=== PATIENT | male | born 1955 | race Caucasian/White ===

== ENCOUNTER → 2019-06-16 | Day surgery (SDC) | payer OTHER ==
[~2019-06-16] VITALS: Ht 182.9 cm; Wt 92.1 kg
[~2019-06-16] MED LIST: BUPIVACAINE 0.25% INJ 50ML VIAL ONE; CEPH250C PO; DOCU-94 PO; GLYCOPYRROLATE 0.2 MG/ML 1ML VIAL IV ONE; HEPARIN SODIUM (PORCINE) 5000 UNITS/ML 1ML VIAL ONE; HYDR-4833 GT; KETOROLAC TROMETH 30 MG/ML 1ML VIAL IV ONE; LIDOCAINE W/ EPINEPHRINE 1 % INJ 30ML ONE; LITH300C3 PO; METF-370 PO; MIDAZOLAM HCL 1MG/1ML-2 ML VIAL ONE; NEOSTIGMINE 1 MG/ML INJ (10mg/10ML VIAL) IV ONE; ONDANSETRON HCL 4 MG/2 ML VIAL IV PRN; PROPOFOL 10 MG/ML 20 ML IV ONE; ROCURONIUM 10MG/ML 10ML VIAL IV ONE; TRAZ150T79 PO; ceFAZolin 1GM/50ML 100 ML IV ONE; ePHEDrine SULFATE 50 MG/ML AMP IV PRN; ePHEDrine SULFATE 50 MG/ML AMP ONE; fentaNYL CITRATE 100 MCG/2 ML VL ONE; hydrALAZINE HCL 20 MG/ML VL IV PRN
[2019-06-16 14:20] VITALS: BP 153/80
== END | disposition home or self-care (01) ==
LOC: SUR 10:19
PROVIDERS: ATTEND Surgery
DX: L05.02 Pilonidal sinus with abscess (principal); E11.9 Type 2 diabetes mellitus without complications; Z79.84 Long term (current) use of oral hypoglycemic drugs; Z79.899 Other long term (current) drug therapy; Z87.891 Personal history of nicotine dependence; Z98.890 Other specified postprocedural states
CPT/HCPCS: 11771; 82962; 88305; J0690; J1644; J2001; J2250; J2704; J3010; J3490

== ENCOUNTER 2023-06-20 06:52 | Day surgery (SDC) | payer OTHER ==
[2023-06-20] VITALS (8 sets, daily range): BP systolic 122–153; BP diastolic 65–79; PULSE 54–64; RESP 13–24; O2SAT 90–99
[~2023-06-20] VITALS: Ht 182.9 cm; Wt 93.9 kg
[~2023-06-20 06:52] MED LIST changes: +ASPI325T4 PO; +BENZ1TAB6 PO; -BUPIVACAINE 0.25% INJ 50ML VIAL ONE; -CEPH250C PO; -DOCU-94 PO; +DOXY100C4 PO; +GLIP10TA9 PO; -GLYCOPYRROLATE 0.2 MG/ML 1ML VIAL IV ONE; -HEPARIN SODIUM (PORCINE) 5000 UNITS/ML 1ML VIAL ONE; -HYDR-4833 GT; +ISOS1TAB28 PO; -KETOROLAC TROMETH 30 MG/ML 1ML VIAL IV ONE; -LIDOCAINE W/ EPINEPHRINE 1 % INJ 30ML ONE; -METF-370 PO; -MIDAZOLAM HCL 1MG/1ML-2 ML VIAL ONE; -NEOSTIGMINE 1 MG/ML INJ (10mg/10ML VIAL) IV ONE; -ONDANSETRON HCL 4 MG/2 ML VIAL IV PRN; +PROP60CA34 PO; -PROPOFOL 10 MG/ML 20 ML IV ONE; -ROCURONIUM 10MG/ML 10ML VIAL IV ONE; +SITA100T7 PO; +TRAZ-227 PO; -TRAZ150T79 PO; -ceFAZolin 1GM/50ML 100 ML IV ONE; -ePHEDrine SULFATE 50 MG/ML AMP IV PRN; -ePHEDrine SULFATE 50 MG/ML AMP ONE; -fentaNYL CITRATE 100 MCG/2 ML VL ONE; -hydrALAZINE HCL 20 MG/ML VL IV PRN
[2023-06-20] MEDS ORDERED: SODIUM CHL 0.9% 50 ML ONE (09:38)
[2023-06-20] MEDS ORDERED: HEPARIN SODIUM (PORCINE) 5000 UNITS/ML 1ML VIAL ONE (09:38)
[2023-06-20] MEDS ORDERED: fentaNYL CITRATE 100 MCG/2 ML VL ONE (09:38)
[2023-06-20] MEDS ORDERED: MIDAZOLAM HCL 2MG/2ML 2ml VIAL (1mg/ml) ONE (09:38)
[2023-06-20] MEDS ORDERED: VERAPAMIL 2.5MG/ML INJ 2ML VIAL IV ONE (09:38)
[2023-06-20] MEDS ORDERED: ANGIOMAX 250 MG VIAL IV ONE (09:38)
[2023-06-20] MEDS ORDERED: IODIXANOL 320MG/ML 100ML BTL IV ONE ×3 (09:39→10:35)
[2023-06-20] MEDS ORDERED: LIDOCAINE 2%HCL (LOCAL ANESTH.) INJ 20ML MDV ONE (09:39)
[2023-06-20] MEDS ORDERED: ATROPINE SULF 1 MG/10ml SYR ONE (10:36)
[2023-06-20] MEDS ORDERED: EPINEPHrine HCL 1 MG/10 ML SYRG ONE (10:36)
[2023-06-20] MEDS ORDERED: ASPirin 325 MG TAB ONE (10:46)
[2023-06-20] MEDS ORDERED: TICAGRELOR 90 MG TAB ONE (10:46)
== END 2023-06-20 14:32 | disposition home or self-care (01) ==
LOC: CATH 06:52
PROVIDERS: ATTEND Internal Medicine
DX: I25.119 Atherosclerotic heart disease of native coronary artery with unspecified angina pectoris (principal); I10 Essential (primary) hypertension; E11.9 Type 2 diabetes mellitus without complications; F41.8 Other specified anxiety disorders; F12.90 Cannabis use, unspecified, uncomplicated; Z87.891 Personal history of nicotine dependence; Z82.49 Family history of ischemic heart disease and other diseases of the circulatory system; Z83.3 Family history of diabetes mellitus; Z72.89 Other problems related to lifestyle; Z79.82 Long term (current) use of aspirin; Z79.899 Other long term (current) drug therapy; Z98.890 Other specified postprocedural states
CPT/HCPCS: 93458; C1725; C1769; C1874; C1887; C1894; C9600; J0583; J1644; J2250; J3010; J7030; Q9967; 99152

== ENCOUNTER 2024-09-01 07:46 | Inpatient (IN) | payer OTHER ==
[~2024-09-01] VITALS: Ht 182.9 cm; Wt 90.8 kg
[~2024-09-01 07:46] MED LIST changes: -ASPI325T4 PO; +ASPI325T6 PO; +ATOR20TA50 PO
[2024-09-01] MEDS: ONDANSETRON HCL 4 MG/2 ML VIAL IV ONE (08:28)
[2024-09-01] MEDS: MORPHINE SULFATE 4 MG/ML SYR/VIAL IV ONE (08:28)
[2024-09-01] MEDS: SODIUM CHLORIDE 0.9% 1,000 ML IV ONE (08:29)
[2024-09-01 08:42] LABS: Basophils # (auto) 0.1 10 ^3/uL (0-0.2); Basophils % (auto) 0.4 % (0.0-2.0); Eosinophils # (auto) 0.1 10 ^3/uL (0-0.8); Eosinophils % (auto) 0.3 % (0.0-7.0); Hematocrit 44.8 % (41.0-53.0); Hemoglobin 15.3 g/dL (13.5-17.5); Lymphocytes # (auto) 0.8 10 ^3/uL (0.4-5.4); Lymphocytes % (auto) 4.2 % (10.0-50.0); Mean Corpuscular Hemoglobin 30.7 pg (28.0-32.0); Mean Corpuscular Hgb Conc. 34.2 g/dL (32.0-36.0); Mean Corpuscular Volume 89.7 fL (80.0-100.0); Monocytes # (auto) 0.9 10 ^3/uL (0-1.3); Monocytes % (auto) 4.4 % (0.0-12.0); Neutrophils # (auto) 17.9 10 ^3/uL (1.6-8.6); Neutrophils % (auto) 90.7 % (37.0-80.0); Platelet Count (auto) 381 10^3/uL (140-450); Red Cell Distribution Width 13.2 % (11.8-14.3); White Blood Cell 19.7 10^3/uL (4.4-10.8)
--- NOTE | 2024-09-01 08:51 | ED.PDOC ---
History of Present Illness HPI Comments 69 y/o M, with a history of CAD, DM, HLD, PTCA, and tobacco use, is BIBA for c/o right-shoulder, rib, and hip pain and right-arm numbness s/p multiple mechanical falls and injuries for the past 4x days, today. Per EMS report, patient's spouse called, endorsing on patient sustaining injuries following multiple falls he has been having for the past 4x days, with most recent taking place, this morning, while in his closet. Patient is commented by EMS to endorse on a "demon" hitting him and causing his falls. He was noted to have had a blood glucose of 236, with all remaining vitals stable and within normal limits. At time of assessment, patient is a poor historian and reports no additional information regarding the nature of his falls aside from aforementioned "demon" causing it. He denies any additional injuries, weakness, tingling sensations, fever, chills, cough, or other associated symptoms or modifiers at this time. Chief Complaint: Fall Injury Time Seen by MD: 08:05 Primary Care Provider: TYRONE Reviewed Notes: Nurses Notes, Chlorination Operator Notes, Medications, Allergies Allergies: Coded Allergies: NO KNOWN ALLERGIES (Unverified , 06/18/23) Home Meds Reported Medications Propranolol Hcl (Inderal La) 60 Mg Cap, 1 CAP PO DAILY for htn, #90 CAP 1 Refill 06/18/23 Isosorbide Mononitrate (Isosorbide Mononitrate Er) 30 Mg Tab, 30 MG PO DAILY for angina, MG 06/18/23 Benztropine Mesylate (Benztropine Mesylate) 1 Mg Tab, 1 MG PO DAILY, MG 06/18/23 Glipizide (Glipizide) 10 Mg Tab, 10 MG PO BID for diabetes, MG 06/18/23 Aspirin (Aspirin) 325 Mg Tab, 325 MG PO DAILY for cad, MG 06/18/23 Sitagliptin Phosphate (Januvia) 100 Mg Tab, 1 TAB PO DAILY for diabetes, #30 TAB 5 Refills 06/18/23 Doxycycline Hyclate (Doxycycline Hyclate) 100 Mg Cap, 100 MG PO DAILY, MG 06/18/23 Trazodone Hcl (Trazodone Hcl) 50 Mg Tab, 150 MG PO HS, MG 1/22/24 [place] Carbonate ([place] Carbonate) 300 Mg Cap, 600 MG PO HS for 30 Days, MG 06/18/23 Information Source: Patient, Emergency Med Personnel Mode of Arrival: EMS Severity: Moderate Timing: Days Duration: Since onset Prehospital treatment: 12 Lead EKG, 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, 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 Past Medical History PAST MEDICAL HISTORY: CAD, DM, High Lipids Surgical History: PTCA Surgical History (Other): stenting of the left anterior descending coronary artery, pilonidal cyst removal Family History Family History: Reviewed,noncontributory to illness Social History Smoker: Cigarettes, Less Than 1 Pack/Day Alcohol: Denies ETOH Use Drugs: Denies Drug Use Lives In: Home All Other Systems: Reviewed and Negative (Comprehensive systems review obtained and negative except for what is stated in the HPI.) Physical Exam General Appearance: No Apparent Distress, Normal HEENT: Normal ENT Inspection, Pharynx Normal, TMs Normal Neck: Full Range of Motion, Non-Tender, Normal, Normal Inspection Respiratory: Chest Non-Tender, Lungs Clear, No Accessory Muscle Use, No Respiratory Distress, Normal Breath Sounds Cardiovascular: No Edema, No JVD, No Murmur, No Gallop, Normal Peripheral Pulses, Regular Rate/Rhythm Breast Exam: Deferred Gastrointestinal: No Organomegaly, Non Tender, No Pulsatile Mass, Normal Bowel Sounds, Soft Genitalia: Deferred Pelvic: Deferred Rectal: Deferred Extremities: No calf tenderness, Normal capillary refill, Normal inspection, Normal range of motion, No pedal edema, Tender (right-shoulder ) Musculoskeletal : Apperance: Normal Neurologic: Alert, operations officer afloat II-XII nml as Tested, No Motor Deficits, Normal Affect, Normal Mood, No Sensory Deficits Cerebellar Function: Normal Reflexes: Normal Skin: Dry, Normal Color, Warm Lymphatic: No Adenopathy Was a procedure done? Was a procedure done?: Yes Sedation Sedation?: No Chest Tube Indication: Effusion (pleural ) Procedure: Sterile preparation, Chest Tube Size Anesthetic: Lidocaine Site: L 4th intercostal space Drainage: Blood, Fluid Informed consent obtained: Yes Risks/benefits/alt described: Yes Differential Dx Considerations may include: fractures, dislocation, contusions, bruising, musculoskeletal pain, among others X-Ray, Labs, Meds, VS Vital Signs Date Time Temp Pulse Resp B/P (MAP) Pulse Ox O2 Delivery O2 Flow Rate FiO2 09/01/24 14:00 97 23 149/75 (99) 96 09/01/24 12:00 97.7 174 22 114/84 (94) 94 97.7 09/01/24 10:00 110 22 118/73 (88) 93 09/01/24 09:19 107 16 120/80 09/01/24 08:42 Nasal Cannula* 2 28 09/01/24 08:31 98.4 113 22 119/65 (83) 90 98.4 09/01/24 08:28 113 24 169/88 09/01/24 07:49 98.0 121 21 148/70 (96) 93 98.0 Lab Test 09/01/24 13:12 09/01/24 11:41 09/01/24 09:07 09/01/24 08:21 Range/Units Body Fluid Source Pending Body Fluid WBC (Manual) Pending Body Fluid RBC (Manual) Pending Body Fluid Mononuclear Cells Pending Body Fluid Polymorphonuclear Cells Pending Body Fluid Albumin Pending Body Fluid Lactate Dehydrogenase Pending Lactic Acid Level 1.6 0.4-2.0 mmol/L Troponin I High Sensitivity < 3 L < 3 L </=54 ng/L White Blood Count 19.7 H 4.4-10.8 10^3/uL Red Blood Count 5.00 4.5-5.90 10^6/uL Hemoglobin 15.3 13.5-17.5 g/dL Hematocrit 44.8 41.0-53.0 % Mean Corpuscular Volume 89.7 80.0-100.0 fL Mean Corpuscular Hemoglobin 30.7 28.0-32.0 pg Mean Corpuscular Hemoglobin Concent 34.2 32.0-36.0 g/dL Red Cell Distribution Width 13.2 11.8-14.3 % Platelet Count 381 140-450 10^3/uL Mean Platelet Volume 7.3 6.9-10.8 fL Neutrophils (%) (Auto) 90.7 H 37.0-80.0 % Lymphocytes (%) (Auto) 4.2 L 10.0-50.0 % Monocytes (%) (Auto) 4.4 0.0-12.0 % Eosinophils (%) (Auto) 0.3 0.0-7.0 % Basophils (%) (Auto) 0.4 0.0-2.0 % Neutrophils # (Auto) 17.9 H 1.6-8.6 10 ^3/uL Lymphocytes # (Auto) 0.8 0.4-5.4 10 ^3/uL Monocytes # (Auto) 0.9 0-1.3 10 ^3/uL Eosinophils # (Auto) 0.1 0-0.8 10 ^3/uL Basophils # (Auto) 0.1 0-0.2 10 ^3/uL Nucleated Red Blood Cells 0.0 % Sodium Level 130 L 136-145 mmol/L Potassium Level 5.2 H 3.5-5.1 mmol/L Chloride Level 99 98-107 mmol/L Carbon Dioxide Level 19 L 20-31 mmol/L Anion Gap 12 5-15 Blood Urea Nitrogen 20 9-23 mg/dL Creatinine 1.17 0.700-1.30 mg/dL Glomerular Filtration Rate Calc 67 >90 mL/min BUN/Creatinine Ratio 17.1 10.0-20.0 Serum Glucose 260 H 74-106 mg/dL Calcium Level 9.8 8.7-10.4 mg/dL B-Type Natriuretic Peptide 26.30 0-100 pg/mL Current Medications Medications (Trade) Dose Ordered Sig/Imtiaz Route Start Time Stop Time Status Last Admin Sodium Chloride 1,000 ml @ 1,000 mls/hr Q1H ONCE IV 09/01/24 08:15 09/01/24 09:14 DC 09/01/24 08:29 Ondansetron HCl (Zofran) 4 mg ONCE ONCE IV 09/01/24 08:15 09/01/24 08:16 DC 09/01/24 08:28 Morphine Sulfate 4 mg ONCE ONCE IV 09/01/24 08:15 09/01/24 08:16 DC 09/01/24 08:28 Azithromycin (Zithromax Tablet) 500 mg ONCE ONCE PO 09/01/24 11:30 09/01/24 11:31 DC 09/01/24 12:08 Cefepime HCl 50 ml @ 12.5 mls/hr ONCE ONCE IV 09/01/24 11:30 09/01/24 15:29 DC 09/01/24 18:21 Vancomycin HCl 200 ml @ 200 mls/hr ONCE ONCE IV 09/01/24 11:30 09/01/24 12:29 DC 09/01/24 13:39 [facility] [id number] [place] [id number] Ph: [phone] DIAGNOSTIC IMAGING Diagnostic Imaging Report : [id number] Signed PATIENT: NOHELIA PATRICK ACCT: [id number] UNIT: [id number] : 1955 LOC: ER ROOM / BED: / AGE / SEX: 69 / M ADM STATUS: REG ER SERVICE 0808 ORDERING PHYSICIAN: MEGAN ROSENBAUM MD PROCEDURE(s): RSHD2 - R SHOULDER 2+ VIEW XRAY REASON: right shoulder ORDER NUMBER(s): [id number], ACCESSION NUMBER(s): [id number] EXAM: XY R SHOULDER 2+ VIEW XRAY HISTORY: right shoulder COMPARISON: None TECHNIQUE: Four views of the right shoulder were performed. FINDINGS: Acute distal clavicular fracture. No AC joint separation. Rightward mediastinal shift. IMPRESSION: 1. Acute distal right clavicular fracture. No AC joint separation. ATED BY: JOHNNY KNIGHT MD DICTATED DATE/TIME: 09/01/24936 SIGNED BY: JOHNNY KNIGHT MD SIGNED DATE/TIME: 09/01/24936 CC: [place] [id number] Ph: [phone] DIAGNOSTIC IMAGING Diagnostic Imaging Report : [id number] Signed PATIENT: NOHELIA PATRICK ACCT: [id number] UNIT: [id number] : 1955 LOC: ER ROOM / BED: / AGE / SEX: 69 / M ADM STATUS: REG ER SERVICE 0808 ORDERING PHYSICIAN: MEGAN ROSENBAUM MD PROCEDURE(s): CXRP - CHEST PORTABLE REASON: multiple falls ORDER NUMBER(s): [id number], ACCESSION NUMBER(s): [id number] CHEST RADIOGRAPH Indication: multiple falls Technique: Single frontal view of the chest was obtained Comparison: XY CHEST PORTABLE on DOS: 04/27/23 FINDINGS: Lines and Tubes: None Lungs: Left lung opacification. Pleura: Left pleural effusion. No pneumothorax. Cardiomediastinal contours: Rightward shift of the mediastinum. Bones: No acute osseous abnormality. IMPRESSION: Opacification of the left hemithorax which may be related to pleural effusion and/or consolidation. Rightward shift of the mediastinum. ATED BY: JOHNNY KNIGHT MD DICTATED DATE/TIME: 09/01/24931 SIGNED BY: JOHNNY KNIGHT MD SIGNED DATE/TIME: 09/01/24931 CC: [place] [id number] Ph: [phone] DIAGNOSTIC IMAGING Diagnostic Imaging Report : [id number] Signed PATIENT: NOHELIA PATRICK ACCT: [id number] UNIT: [id number] : 1955 LOC: ER ROOM / BED: / AGE / SEX: 69 / M ADM STATUS: REG ER SERVICE 7 ORDERING PHYSICIAN: MEGAN ROSENBAUM MD PROCEDURE(s): HWOCT - HEAD WITHOUT CONTRAST REASON: multiple falls ORDER NUMBER(s): [id number], ACCESSION NUMBER(s): [id number] CT HEAD WITHOUT CONTRAST INDICATION: multiple falls COMPARISON: None TECHNIQUE: CT of the head without intravenous contrast. RADIATION DOSE: CTDIvol: 58.24 mGy, DLP: 1264.26 mGy*cm FINDINGS: There is no evidence of acute intracranial hemorrhage, extra-axial collection, mass effect, midline shift, herniation or hydrocephalus. Diffuse atrophy and chronic microvascular ischemic changes. The visualized paranasal sinuses and mastoid air cells are clear. The surrounding soft tissues and osseous structures are unremarkable. IMPRESSION: 1. No evidence of acute intracranial hemorrhage, mass effect or hydrocephalus. 2. Diffuse atrophy and chronic microvascular ischemic changes. ATED BY: SHWETHA SHARMA MD DICTATED DATE/TIME: 09/01/241005 SIGNED BY: SHWETHA SHARMA MD SIGNED DATE/TIME: 09/01/241005 CC: Time of 1ST Reevaluation: 08:35 Reevaluation 1ST: Unchanged Patient Education/Counseling: Diagnosis, Treatment Family Education/Counseling: No Family Present Additional Information Previous medical encounters reviewed: Jun 20, 2023 and April 27, 2023 encounter for s/p lhc and abnormal labs, respectively. The following tests were ordered, and results were reviewed by me: CT head w/o contrast, CXR, R-shoulder 2 view X-ray, UA, CBC, BMP, BNP, Additional Information was gathered from interviewing the following independent historians: EMS I reviewed and agreed with the following test results read by other providers: CT head w/o contrast, CXR, R-shoulder 2 view X-ray, I discussed treatment and results with medical personnel and: Patient Departure 1 Departure Time of Disposition: 20:02 (Patient presented with altered mental status, fall, right shoulder pain, chest pain. Patient was found with complete light 9:00 a.m. opacification of the left pleural cavity likely from pleural effusion with right mediastinal shift. Labs I placed a me when I feel for pigtail catheter with yellow and drained 2 L of fluid on from patient's chest cavity heart. I stopped to avoid potential pulmonary re-expansion edema. Patient was empirically covered with medications. We will admit patient for further workup) Impression: Primary Impression: Atypical chest pain Additional Impressions: Pleural effusion, left Acute metabolic encephalopathy Right clavicle fracture Qualified Codes: S42.034A - Nondisplaced fracture of lateral end of right clavicle, initial encounter for closed fracture Disposition: ADMITTED INPATIENT Admit to: [facility] Condition: Guarded Critical Care Note Critical Care Time?: Yes Critical care comment: Acute respiratory distress Authorized and Performed by: Megan Rosenbaum MD Total critical care time: Approximately 38 minutes Due to a high probability of clinically significant, life threatening deterioration, the patient required my highest level of preparedness to intervene emergently and I personally spent this critical care time directly and personally managing the patient. This critical care time included obtaining a history; examining the patient; pulse oximetry; ordering and review of studies; arranging urgent treatment with development of a management plan; evaluation of patient's response to treatment; frequent reassessment; and, discussions with other providers. This critical care time was performed to assess and manage the high probability of imminent, life-threatening deterioration that could result in multi-organ failure. It was exclusive of separately billable procedures and treating other patients and teaching time. Please see my other sections and the rest of the note for further information on patient assessment and treatment. Stability Stability form required: No Heart Score Heart Score: Heart Score Response (Comments) Value History N/A 0 EKG N/A 0 Age N/A 0 Risk Factors N/A 0 Troponin N/A 0 Total 0 I personally scribed for MEGAN ROSENBAUM MD ([email or web address]) on 09/01/24 at 08:51. Electronically submitted by Marty Roberts ([email or web address]). I personally scribed for MEGAN ROSENBAUM MD ([email or web address]) on 09/01/24 at 11:04. Electronically submitted by Marty Roberts ([email or web address]). I personally scribed for MEGAN ROSENBAUM MD ([email or web address]) on 09/01/24 at 14:06. Electronically submitted by Marty Roberts ([email or web address]). MEGAN ROSENBAUM MD Sep 01, 2024 08:51
[2024-09-01 08:54] LABS: Chloride 99 mmol/L (98-107)
[2024-09-01 08:55] LABS: Anion Gap 12 (5-15); Calcium 9.8 mg/dL (8.7-10.4)
[2024-09-01 09:00] LABS: BUN/Creatinine Ratio 17.1 (10.0-20.0); Blood Urea Nitrogen 20 mg/dL (9-23)
[2024-09-01 09:02] LABS: Carbon Dioxide 19 mmol/L (20-31); Glucose 260 mg/dL (74-106); Potassium 5.2 mmol/L (3.5-5.1); Sodium 130 mmol/L (136-145)
--- NOTE | 2024-09-01 09:35 | DVH ---
CHEST RADIOGRAPH Indication: multiple falls Technique: Single frontal view of the chest was obtained Comparison: XY CHEST PORTABLE on DOS: 04/27/23 FINDINGS: Lines and Tubes: None Lungs: Left lung opacification. Pleura: Left pleural effusion. No pneumothorax. Cardiomediastinal contours: Rightward shift of the mediastinum. Bones: No acute osseous abnormality. IMPRESSION: Opacification of the left hemithorax which may be related to pleural effusion and/or consolidation. R ightward shift of the mediastinum.
--- NOTE | 2024-09-01 09:39 | DVH ---
EXAM: XY R SHOULDER 2+ VIEW XRAY HISTORY: right shoulder COMPARISON: None TECHNIQUE: Four views of the right shoulder were performed. FINDINGS: Acute distal clavicular fracture. No AC joint separation. Rightward mediastinal shift. IMPRESSION: 1. Acute distal right clavicular fracture. No AC joint separation.
--- NOTE | 2024-09-01 10:08 | DVH ---
CT HEAD WITHOUT CONTRAST INDICATION: multiple falls COMPARISON: None TECHNIQUE: CT of the head without intravenous contrast. RADIATION DOSE: CTDIvol: 58.24 mGy, DLP: 1264.26 mGy*cm FINDINGS: There is no evidence of acute intracranial hemorrhage, extra-axial collection, mass effect, midline s hift, herniation or hydrocephalus. Diffuse atrophy and chronic microvascular ischemic changes. The visualized paranasal sinuses and mastoid air cells are clear. The surrounding soft tissues and osse ous structures are unremarkable. IMPRESSION: 1. No evidence of acute intracranial hemorrhage, mass effect or hydrocephalus. 2. Diffuse atrophy and chronic microvascular ischemic changes.
[2024-09-01] MEDS: KETAMINE 50mg/ML 10ml Vial (500mg/10ml) IV ONE (11:45)
[2024-09-01] MEDS: AZITHROMYCIN 250 MG TAB PO ONE (12:08)
[2024-09-01] MEDS: VANCOMYCIN 1GM/200ML PM 200 ML IV ONE (13:39)
--- NOTE | 2024-09-01 14:02 | DVH ---
EXAM: XY CHEST PORTABLE TECHNIQUE: Single frontal chest radiograph CLINICAL HISTORY: s/p pig tail COMPARISON: XY CHEST PORTABLE on DOS: 09/01/24, XY CHEST PORTABLE on DOS: 04/27/23 Findings/Impression: Frontal chest radiograph demonstrates no acute osseous or superficial soft tissue abnormalities. The trachea is deviated to the right. The cardiac silhouette and mediastinum are obscured. Near complete opacification of the left hemithorax with a pigtail catheter overlying the left upper l alina field. No pneumothorax.
[2024-09-01] MEDS ORDERED: VANCOMYCIN PER PHARMACY 0 MG IV SCH (14:15)
[2024-09-01] MEDS ORDERED: METOPROLOL TARTRATE 1MG/1ML-5ML VIAL IV PRN (14:15)
[2024-09-01] MEDS ORDERED: NITROGLYCERIN 0.4 MG SL TAB SL PRN (14:15)
[2024-09-01] MEDS ORDERED: MORPHINE SULFATE INJ 2 MG/ml SYRG IV PRN (14:15)
[2024-09-01] MEDS ORDERED: DEXTROSE (50%) 50ML SYRG IV PRN (14:15)
--- NOTE | 2024-09-01 14:19 | DVHHP2 ---
History of Present Illness Reason for Visit: Multiple falls with confusion History of Present Illness 69 y/o M, with a history of CAD, DM, HLD, PTCA, and tobacco use, is BIBA for c/o right-shoulder, rib, and hip pain and right-arm numbness s/p multiple mechanical falls and injuries for the past 4x days, today. Per EMS report, patient's spouse called, endorsing on patient sustaining injuries following multiple falls he has been having for the past 4x days, with most recent taking place, this morning, while in his closet. Patient is commented by EMS to endorse on a "demon" hitting him and causing his falls. He was noted to have had a blood glucose of 236, with all remaining vitals stable and within normal limits. At time of assessment, patient is a poor historian and reports no additional information regarding the nature of his falls aside from aforementioned "demon" causing it. He denies any additional injuries, weakness, tingling sensations, fever, chills, cough, or other associated symptoms or modifiers at this time. Cardiovascular: CAD Past Medical History CAD, DM, High Lipids Past Surgical History stenting of the left anterior descending coronary artery, pilonidal cyst removal Smoke: <1 pack per day ALCOHOL: rare Lives: with Family Review of Systems Review of Systems Unable to give much reliable history due to his confusion. Allergies: Coded Allergies: NO KNOWN ALLERGIES (Unverified , 06/18/23) Medications Current Medications Medications Dose Ordered Sig/Imtiaz Route Start Time Stop Time Status Last Admin Dose Admin Nitroglycerin 0.4 mg Q5MINP PRN SL 09/01/24 14:15 UNV Morphine Sulfate 2 mg Q30M PRN IV 09/01/24 14:15 UNV Diagnostic Test (Pha) 1 strip ACHS 09/01/24 17:00 UNV Insulin Human Regular ACHS SC 09/01/24 17:00 UNV Dextrose 50 ml UD PRN IV 09/01/24 14:15 UNV Aspirin 81 mg DAILY PO 09/02/24 10:00 UNV Atorvastatin Calcium 20 mg HS PO 09/01/24 22:00 UNV Metoprolol Tartrate 1.25 mg Q6HPRN PRN IV 09/01/24 14:15 UNV Metoprolol Tartrate 12.5 mg BID PO 09/01/24 22:00 UNV Ceftriaxone Sodium 50 ml @ 100 mls/hr DAILY@09 IV 09/02/24 09:00 UNV Vancomycin HCl 0 ml @ 0 mls/hr UD IV 09/01/24 14:15 UNV Exam Vital Signs Vital Signs Date Time Temp Pulse Resp B/P (MAP) Pulse Ox O2 Delivery O2 Flow Rate FiO2 09/01/24 12:00 97.7 174 22 114/84 (94) 94 97.7 09/01/24 08:42 Nasal Cannula* 2 28 Exam Alert and awake but confused. HEENT pupils equal round react to light. Oropha rynx clear. Neck supple no JVD. Heart sinus tachycardia S1 plus S2. No audible murmurs. Lungs fair air movement with a degraded breath sounds in the bases. Chest tube will expansion. Abdomen is soft. Nontender. Positive bowel sounds. Extremities no edema. Positive distal pedal pulses. Neurologically besides confusion no focal deficits noted. Labs/Xrays Labs Test 09/01/24 11:41 09/01/24 09:07 09/01/24 08:21 Range/Units Lactic Acid Level 1.6 0.4-2.0 mmol/L Troponin I High Sensitivity < 3 L </=54 ng/L White Blood Count 19.7 H 4.4-10.8 10^3/uL Red Blood Count 5.00 4.5-5.90 10^6/uL Hemoglobin 15.3 13.5-17.5 g/dL Hematocrit 44.8 41.0-53.0 % Mean Corpuscular Volume 89.7 80.0-100.0 fL Mean Corpuscular Hemoglobin 30.7 28.0-32.0 pg Mean Corpuscular Hemoglobin Concent 34.2 32.0-36.0 g/dL Red Cell Distribution Width 13.2 11.8-14.3 % Platelet Count 381 140-450 10^3/uL Mean Platelet Volume 7.3 6.9-10.8 fL Neutrophils (%) (Auto) 90.7 H 37.0-80.0 % Lymphocytes (%) (Auto) 4.2 L 10.0-50.0 % Monocytes (%) (Auto) 4.4 0.0-12.0 % Eosinophils (%) (Auto) 0.3 0.0-7.0 % Basophils (%) (Auto) 0.4 0.0-2.0 % Neutrophils # (Auto) 17.9 H 1.6-8.6 10 ^3/uL Lymphocytes # (Auto) 0.8 0.4-5.4 10 ^3/uL Monocytes # (Auto) 0.9 0-1.3 10 ^3/uL Eosinophils # (Auto) 0.1 0-0.8 10 ^3/uL Basophils # (Auto) 0.1 0-0.2 10 ^3/uL Nucleated Red Blood Cells 0.0 % Sodium Level 130 L 136-145 mmol/L Potassium Level 5.2 H 3.5-5.1 mmol/L Chloride Level 99 98-107 mmol/L Carbon Dioxide Level 19 L 20-31 mmol/L Anion Gap 12 5-15 Blood Urea Nitrogen 20 9-23 mg/dL Creatinine 1.17 0.700-1.30 mg/dL Glomerular Filtration Rate Calc 67 >90 mL/min BUN/Creatinine Ratio 17.1 10.0-20.0 Serum Glucose 260 H 74-106 mg/dL Calcium Level 9.8 8.7-10.4 mg/dL B-Type Natriuretic Peptide 26.30 0-100 pg/mL Assessment/Plan Assessment/Plan Pleural effusions status post thoracentesis in the ER Sinus tachycardia Coronary artery disease with a history of LAD stent in June 21 Metabolic encephalopathy ruled out psychiatric disorder Possible lithium toxicity Mechanical falls ground level multiple Status post distal clavicular fracture from fall Patient is confused. We will admit him to step-down unit. Fall precautions. Clear liquid diet. Pulmonary and orthopedic consultation. Empiric IV antibiotics. Send pleural fluid to culture and cell count studies. IV metoprolol p.r.n. for tachycardia. Check lithium levels. Tele psych consultation. Start him on aspirin and statin given a recent LAD stent placement. Otherwise continue rest of supportive care and treatment. Further clinical management per clinical course and pending evaluations and studies. Discussed with the ER physician regarding care plan. Plan discussed with: Other My Orders Orders - YUNIOR CARNEY MD Procedure Category Date Status Time Leith (Eskalith) LAB 09/01/24 Logged 14:02 Clear Liq Diet DIET 09/01/24 Transmitted Dinner Echo 2d Mode Cardiac US 09/01/24 Logged DOP 14:03 Soc Telemed Psych CONS 09/01/24 Transmitted Consult 14:03 Troponin-I Hs LAB 09/01/24 Logged 14:03 Nitroglycerin PHA 09/01/24 Logged Sublingual (Ntrostat 14:15 Morphine Sulfate PHA 09/01/24 Logged Injection 14:15 Stat Ekg For Chest [facility] 09/01/24 In Process Pain 14:03 Notify Of Changes [facility] 09/01/24 In Process From Base 14:03 Debt Collection Specialist For [facility] 09/01/24 In Process 24 Hours 14:03 Emergency Dysrhythmia [facility] 09/01/24 In Process Protocol 14:03 Rhythm Strips Once [facility] 09/01/24 In Process Every Shift 14:03 Oxygen By Nasal RT 09/01/24 Transmitted Cannula 14:03 Troponin-I Hs LAB 09/01/24 Logged 17:03 Glucose Blood PHA 09/01/24 Logged (Accu-Chek Comfort 17:00 Insulin R (Human) PHA 09/01/24 Logged (Insulin R) 17:00 Dextrose 50% Syringe PHA 09/01/24 Logged 14:15 *Cons[address] Dr[address] Boo CONS 09/01/24 Transmitted Krissy 14:05 Urinalysis LAB 09/01/24 Logged 14:05 Drug Screen LAB 09/01/24 Logged 14:05 PTPTT LAB 09/01/24 Logged 14:[address] 09/01/24 Logged 14:06 Admit ADMIT 09/01/24 Transmitted 14:06 Thyroid Stimulating LAB 09/01/24 Logged Hormone 14:08 Free T4 (Free LAB 09/01/24 Logged Thyroxine) 14:08 Aspirin Enteric PHA 09/02/24 Logged Coated Tablet 10:00 Atorvastatin (Lipitor) PHA 09/01/24 Logged 22:00 Metoprolol Inj PHA 09/01/24 Logged (Lopressor) 14:15 Metoprolol Tartrate PHA 09/01/24 Logged Tablet (Lopressor Ta 22:00 Ceftriaxone 1gm/50ml PHA 09/02/24 Logged D5w (Rocephin) 09:00 Vancomycin Per PHA 09/01/24 Logged Pharmacy 14:15 Body Fluids, Diff. LAB 09/01/24 Logged Cell Count 14:09 Albumin; Body Fluid LAB 09/01/24 Logged 14:09 Lactate LAB 09/01/24 Logged Dehydrogenase, Fluid 14:09 Body Fluid Culture W/ PB 09/01/24 Logged GS 14:09 *Consult CONS 09/01/24 Transmitted / 14:13 Chest Portable XY 09/02/24 Logged 04:00 Complete Blood Count LAB 09/02/24 Verified 04:00 Comprehensive LAB 09/02/24 Verified Metabolic Panel 04:00 Fall Risk Precautions [facility] 09/01/[address] 14:13 YUNIOR CARNEY MD Sep 01, 2024 14:19
[2024-09-01 14:44] LABS: INR 1.05 (0.9-1.15); Partial Thromboplastin Time 30.3 SEC (24.5-34.5); Prothrombin Time 11.1 sec (9.3-11.8)
--- NOTE | 2024-09-01 15:09 | DVH ---
Bilateral lower extremity venous duplex Clinical History: swelling, RULE OUT DVT Comparison: None Technique: Duplex Doppler evaluation of the deep venous systems of both lower extremities from the common femora l veins to the popliteal veins including color Doppler and spectral/pulsed waveform analysis was perf ormed. Findings: RIGHT SIDE: The common femoral vein demonstrates appropriate compressibility and waveform variability. There is compressibility/patency of the great saphenous vein at the proximal thigh. The femoral vein demonstrates appropriate compressibility and waveform variability. The deep femoral vein demonstrates appropriate compressibility and waveform variability. The popliteal vein demonstrates appropriate compressibility and waveform variability. There is normal compressibility at the tibioperoneal trunk. LEFT SIDE: The common femoral vein demonstrates appropriate compressibility and waveform variability. There is compressibility/patency of the great saphenous vein at the proximal thigh. The femoral vein demonstrates appropriate compressibility and waveform variability. The deep femoral vein demonstrates appropriate compressibility and waveform variability. The popliteal vein demonstrates appropriate compressibility and waveform variability. There is normal compressibility at the tibioperoneal trunk. Impression: No right or left femoropopliteal venous thrombosis.
--- NOTE | 2024-09-01 15:12 | DVHSR ---
APPROVED REPORT EXAM: LIMITED Two-dimensional and M-mode echocardiogram with Doppler and color Doppler. Blood Pressure: 114/84 mmHg INDICATION CAD RISK FACTORS Height: 71, Weight: 160 DIMENSIONS LVDd4.4 (3.8-5.7cm)LA (2D) (1.9-4.0cm)Aortic Root (2.0-3.7cm) LVDs2.9 (2.5-4.0cm)LA (MM) (1.9-4.0cm)Aortic Cusp Exc (1.5-2.0cm) EF (%) 62.0 (55-70%)Rt. Atrium (1.9-4.0cm)Asc. Aorta cm Mitral Valve MitralMitral Stenosis E/A ratio0.02D MVAcm2 Pulmonic Valve V21.35m/s Tricuspid Valve TR Velocity3.22m/s [id number] Other Information Technically limited study due to body habitus and patient position. Patient has a chest tube placed on the left side of his chest. Subcoastal view only. Conclusion lvef 65% mild lvh normal rv function pericardial effusion noted--small adjacnet to RV, posterior wall is moderate size, no HD compromise limited study
[2024-09-01] MEDS: ACCU-CHEK COMFORT CURVE STRIP VI SCH (17:32)
[2024-09-01] MEDS: InsuLIN REG 1unit/0.01ml Soln (100units/ml) SC SCH (17:33)
[2024-09-01] MEDS: FUROSEMIDE 40 MG/4 ML VIAL IV ONE (17:46)
[2024-09-01] MEDS: CEFEPIME 2GM/50ML NS 50 ML IV ONE (18:21)
[2024-09-01 20:21] VITALS: PULSE 100; RESP 18; O2SAT 96
[2024-09-01] MEDS: METOPROLOL TARTRATE 25 MG TAB PO SCH (22:35)
[2024-09-01] MEDS: ATORVASTATIN 20 MG TAB PO SCH (22:35)
[2024-09-01] MEDS: BACITRACIN TOP OINT 1 UD PKG TOP ONE (22:51)
[2024-09-02] VITALS (19 sets, daily range): BP systolic 106–147; BP diastolic 52–81; PULSE 78–101; RESP 15–38; TEMP 99.1–99.3; O2SAT 90–96
--- NOTE | 2024-09-02 00:30 | PRN ---
Misceleneous Note Note Note With the patient's bedside for dislodged chest tube. Patient pending admission to hospitalist service, nursing staff unable to reach hospitalist. Patient examined, he is awake, alert, and no respiratory distress. He reports his shortness of breath is significantly improved. Left sided chest tube completely removed from the chest wall. Suture was still in place in the skin. Suture was removed, pressure held with good hemostasis.. Wounds cleaned and dressed with sterile dressing. Repeat chest x-ray shows significant improvement in left pleural effusion. Patient pending admission and pulmonology consultation. DOUG EASTMAN MD Sep 02, 2024 00:30
--- NOTE | 2024-09-02 02:44 | DVH ---
CHEST RADIOGRAPH Indication: chest tube displaced Technique: Single frontal view of the chest was obtained COMPARISON: XY CHEST PORTABLE on DOS: 09/01/24, XY CHEST PORTABLE on DOS: 09/01/24, XY CHEST PORTABLE on DOS: 04/27/23 FINDINGS: Lines and Tubes: None Lungs: There is opacity at the left lung base which may represent effusion and/ or parenchymal diseas e. Pleura: Right lung Is clear. Cardiomediastinal contours: Unremarkable Bones: Unremarkable IMPRESSION: 1. Left basilar opacity.
--- NOTE | 2024-09-02 04:25 | DVH ---
CTA Chest with intravenous contrast INDICATION: Falls/sob/pleural effusion COMPARISON: Chest radiograph performed on 09/01/2024 TECHNIQUE: Multidetector spiral CTA of the chest was performed of the chest with 100 cc of intravenou s contrast. PULMONARY ANGIOGRAPHY PROTOCOL was utilized using a bolus-tracking technique centered on the main pulmonary artery. Coronal and sagittal multiplanar and MIP reformats were performed. Radiation Dose : 1. Chest: CTDI volume is 26.2 mGy. Dose-length product is 1122.32 mGy*cm The dose indicators for CT are the volume Computed Tomography (CT) Dose Index (CTDIvol) and the Dose Length Product (DLP), and are measured in units of mGy and mGy-cm, respectively. These indicators are not patient dose, but values generated from the CT scanner acquisition factors. The report includes radiation exposure data for exposures received during this examination. FINDINGS: Pulmonary artery: No large central, lobar or proximal segmental pulmonary embolus. Lower neck: There is a 3.0 cm right thyroid nodule. Lungs: Ground-glass opacities are noted in the left upper lobe. Passive atelectasis noted in the lef t lower lobe. Right lower lobe atelectasis. Pleura: Moderate left hydropneumothorax. Heart/Vascular Structures: The heart is enlarged. Trace pericardial effusion. Thoracic aorta is darlyn l in caliber. No aneurysm or dissection. Lymph Nodes: Multiple mediastinal lymph nodes which are enlarged measuring up to 1.5 cm in short axis . Subcarinal lymph node measures 2.8 cm in short axis. Esophagus:Grossly unremarkable. Musculoskeletal: There is a lytic lesion in the distal right clavicle measuring 2.3 cm with a patholo gic fracture through the clavicle. Acute appearing fracture through the sternum. Body wall: Unremarkable. Upper abdomen: 2.2 cm right adrenal nodule. IMPRESSION: 1. No evidence of pulmonary embolism. 2. Moderate left hydropneumothorax. 3. Pulmonary edema and right pleural effusion. Correlation for congestive heart failure recommended. 4. 3.0 cm right thyroid nodule. Correlation with thyroid ultrasound is strongly recommended. 5. Mediastinal lymphadenopathy which may be metastatic. 6. Cardiomegaly. 7. Lytic lesion in the distal right clavicle with pathologic fracture. This is concerning for a meta static lesion. PET-CT recommended. 8. Acute appearing fracture through the sternum.
[2024-09-02 05:00] LABS: Basophils # (auto) 0.1 10 ^3/uL (0-0.2); Basophils % (auto) 0.4 % (0.0-2.0); Eosinophils # (auto) 0.3 10 ^3/uL (0-0.8); Eosinophils % (auto) 1.4 % (0.0-7.0); Lymphocytes # (auto) 1.2 10 ^3/uL (0.4-5.4); Lymphocytes % (auto) 6.7 % (10.0-50.0); Mean Corpuscular Hemoglobin 30.5 pg (28.0-32.0); Mean Corpuscular Hgb Conc. 34.1 g/dL (32.0-36.0); Mean Corpuscular Volume 89.4 fL (80.0-100.0); Monocytes # (auto) 1.5 10 ^3/uL (0-1.3); Monocytes % (auto) 8.1 % (0.0-12.0); Neutrophils # (auto) 15.3 10 ^3/uL (1.6-8.6); Neutrophils % (auto) 83.4 % (37.0-80.0); Platelet Count (auto) 361 10^3/uL (140-450); Red Blood Cells 4.93 10^6/uL (4.5-5.90); Red Cell Distribution Width 13.3 % (11.8-14.3); White Blood Cell 18.3 10^3/uL (4.4-10.8)
[2024-09-02 05:18] LABS: Alanine Aminotransferase 48 U/L (7-40); Albumin 3.2 g/dL (3.2-4.8); Alkaline Phosphatase 64 U/L (46-116); Anion Gap 8 (5-15); Aspartate Aminotransferase 51 U/L (13-40); BUN/Creatinine Ratio 18.1 (10.0-20.0); Bilirubin, Total 0.6 mg/dL (0.2-1.0); Blood Urea Nitrogen 15 mg/dL (9-23); Calcium 9.4 mg/dL (8.7-10.4); Carbon Dioxide 28 mmol/L (20-31); Chloride 102 mmol/L (98-107); Glucose 136 mg/dL (74-106); Potassium 4.9 mmol/L (3.5-5.1); Sodium 138 mmol/L (136-145)
--- NOTE | 2024-09-02 08:02 | DVH ---
EXAM: XR Chest, 1 View CLINICAL INDICATION: Pleural effusion TECHNIQUE: Frontal view of the chest. COMPARISON: XY CHEST XRAY 1 VIEW on DOS: 09/01/24, XY CHEST PORTABLE on DOS: 09/01/24, XY CHEST PORTABL E on DOS: 09/01/24, XY CHEST PORTABLE on DOS: 04/27/23 FINDINGS: LUNGS AND PLEURAL SPACES: Large left pleural effusion. Mild pulmonary congestion. No consolidatio n. No pneumothorax. HEART: Unremarkable. No cardiomegaly. MEDIASTINUM: Unremarkable. Normal mediastinal contour. BONES/JOINTS: Unremarkable. No acute fracture. OTHER FINDINGS: . IMPRESSION: Large left pleural effusion.
[2024-09-02] MEDS: cefTRIAXone 1GM/50ML D5W 50 ML IV SCH (08:16)
[2024-09-02] MEDS: VANCOMYCIN 750MG KIT 100 ML IV SCH (08:32)
[2024-09-02] MEDS: FUROSEMIDE 40 MG/4 ML VIAL IV SCH (09:23)
[2024-09-02] MEDS: ASPirin-EC 81 mg tab PO SCH (09:24)
[2024-09-02] MEDS: MORPHINE SULFATE INJ 2 MG/ml SYRG ONE (10:20)
[2024-09-02] MEDS: MORPHINE SULFATE INJ 2 MG/ml SYRG IV ONE (10:30)
--- NOTE | 2024-09-02 10:42 | DVHNC2 ---
Procedure - Left Cook Mark Pigtail Chest tube placement procedure note: Physician: Dr Dina Dumont Date: September 02, 2024 Diagnosis: Acute hypoxic respiratory failure, left pleural effusion, atelectasis Indication: Massive left pleural effusion Consent: Consent was obtained from patient's healthcare proxy prior to procedure. Indication, risks, and benefits were explained at length. Patient medications and allergies reviewed. The risks and benefits of the procedure and the sedation options and risk were discussed with the patient's healthcare proxy. All questions were answered and informed consent was obtained. Patient identification and proposed procedure were verified prior to the procedure by the physician, and a nurse in the patient's room. The heart rate, respiratory rate, oxygen saturations, blood pressure, adequacy of pulmonary ventilation, and response to care were monitored throughout the procedure. The physical status of the patient was reassessed after the proced ure. Procedure summary: A time-out was performed and a chest x-ray was reviewed prior to procedure. The appropriate site was confirmed and marked. My hands were washed immediately prior to the procedure, I wore a surgical cap, mask with protective eyewear, sterile gown and sterile gloves throughout the procedure. The patient was prepped and draped in a sterile manner using chlorhexidine scrub after the appropriate level was percussed and confirmed by ultrasound. 1% lidocaine was used to anesthetize the skin, subcutaneous tissue, superior aspect of the rib periosteum and parietal pleura. An 18-gauge needle with syringe attached was inserted into the pleural space with aspiration of air to verify placement. A guidewire was advanced into the pleural space and needle was withdrawn. 0.5 cm incision was made through the skin and subcutaneous tissues were dilated with a dilator. The 14 [place] Cook Mark pigtail chest drain was inserted into the pleural space. The drain was then immediately connected to a Pleur-evac. Adequate placement confirmed by air leak. The chest tube was sutured in place and dressing was applied. The patient tolerated the procedure well. CXR post procedure demonstrates LEFT chest tube in place and interval reduction of left pleural effusion Estimated blood loss: Less than 5 mL. Complications: None. CPT 02087 HAYLEE DUMONT MD Sep 02, 2024 10:42
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
--- NOTE | 2024-09-02 11:24 | DVH ---
CHEST RADIOGRAPH Indication: s/p Chest tube placement, left Technique: Single frontal view of the chest was obtained Comparison: XY CHEST PORTABLE on DOS: 09/02/24, XY CHEST XRAY 1 VIEW on DOS: 09/01/24, XY CHEST PORTABLE on DOS: 09/01/24, XY CHEST PORTABLE on DOS: 09/01/24, XY CHEST PORTABLE on DOS: 04/27/23 FINDINGS: Lines and Tubes: Left chest tube. Lungs: No focal consolidation. Pleura: Moderate left pleural No pneumothorax. Cardiomediastinal contours: Unremarkable Bones: No acute osseous abnormality. IMPRESSION: Moderate left pleural effusion with left chest tube present.
[2024-09-02 13:32] LABS: Body Fluid Red Blood Cells 43488 CUMM (0-2000); Body Fluid White Blood Cells 311 CUMM (0-200)
--- NOTE | 2024-09-02 15:15 | DVHPN2 ---
Progress Note - Dictate Date Seen: Sep 02, 2024 Medical Necessity Reason Pt with a Central, PICC or Fol: No Subjective Patient is comfortable in bed. Appears to have intermittent lapses in memory and recall. Patient apparently had a chest tube dislodge therefore a new chest tube is placed and chest x-rays confirmed the placement. CT angiogram of the chest and ultrasound of the legs did not reveal any evidence of blood clots. His lithium levels were subtherapeutic. vital signs Vital Sign Date Time Temp Pulse Resp B/P (MAP) Pulse Ox O2 Delivery O2 Flow Rate FiO2 09/02/24 12:00 19 Nasal Cannula* 3 32 09/02/24 12:00 92 09/02/24 12:00 118/79 (92) 95 09/02/24 11:00 99.1 99.1 Total Intake and Output 09/01/24 09/01/24 09/02/24 15:00 23:00 07:00 Intake Total 1200 ml Output Total 4000 ml 600 ml Balance 1200 ml -4000 ml -600 ml medications Current Medications Medications Dose Ordered Sig/Imtiaz Route Start Time Stop Time Status Last Admin Dose Admin Nitroglycerin 0.4 mg Q5MINP PRN SL 09/01/24 14:15 Morphine Sulfate 2 mg Q30M PRN IV 09/01/24 14:15 Diagnostic Test (Pha) 1 strip ACHS 09/01/24 17:00 09/02/24 11:36 1 STRIP Insulin Human Regular ACHS SC 09/01/24 17:00 09/02/24 11:37 6 UNITS Dextrose 50 ml UD PRN IV 09/01/24 14:15 Aspirin 81 mg DAILY PO 09/02/24 10:00 09/02/24 09:24 81 MG Atorvastatin Calcium 20 mg HS PO 09/01/24 22:00 09/01/24 22:35 20 MG Metoprolol Tartrate 1.25 mg Q6HPRN PRN IV 09/01/24 14:15 Metoprolol Tartrate 12.5 mg BID PO 09/01/24 22:00 09/02/24 09:24 12.5 MG Ceftriaxone Sodium 50 ml @ 100 mls/hr DAILY@09 IV 09/02/24 09:00 09/02/24 08:16 100 MLS/HR Vancomycin HCl 0 ml @ 0 mls/hr UD IV 09/01/24 14:15 Furosemide 40 mg DAILY IV 09/02/24 10:00 09/02/24 09:23 40 MG Vancomycin HCl 100 ml @ 100 mls/hr Q18H IV 09/02/24 08:00 09/02/24 08:32 100 MLS/HR objective Alert awake oriented to place and person. Comfortable in bed. HEENT neck supple no JVD pupils equal round react to light. Heart regular rate and rhythm S1-S2. Lungs fair air movement with a degraded breath sounds in the left lung. Chest tube will expansion. Abdomen is soft nontender positive bowel sounds. Extremities no edema positive pulses. laboratory and microbiology Laboratory Tests 09/02/24 04:39 Test 09/02/24 04:39 Range/Units Serum Glucose 136 #H 74-106 mg/dL Assessment/Plan I will resume lithium given the subtherapeutic levels. We will have a tele psych consultation. Otherwise continue current antibiotics supportive care and treatment. Wait for pleural fluid results. We will also send pleural fluid for cytology. Otherwise further clinical management per clinical course and recommendations from the consultants were involved in his care. Discussed with the patient as well as the nurse at bedside regarding his care plan Problems(with codes): (1) Pleural effusion, left (2) Right clavicle fracture (3) Acute metabolic encephalopathy (4) Atypical chest pain Plan discussed with: Patient, Other YUNIOR CARNEY MD Sep 02, 2024 15:14
--- NOTE | 2024-09-02 19:55 | DVHINCON2 ---
Consult Note Consult Consult Note Consulting Service: Emergency Department Reason for Consult: Evaluation of right clavicle fracture following ground-level fall --- History of Present Illness: Patient was evaluated in the Emergency Department following a ground-level fall. The ER team identified a right clavicle fracture on X-ray and requested orthopedic consultation. During my interview, the patient reported localized pain over the right clavicle, worsened with shoulder movement. The patient denies any head trauma, loss of consciousness, or other areas of pain. No history of prior clavicle fracture. Patient confirms the fall was mechanical in nature. No puncture wounds, skin tenting, or neurovascular symptoms were reported. --- Physical Examination: Right clavicle: Localized tenderness to palpation over midshaft. No deformity, open wound, or skin tenting. Neurovascular exam of right upper extremity: Grossly intact; no deficits noted. Shoulder ROM: Limited due to pain Skin: Intact over the clavicle region --- Imaging: X-ray of the right clavicle reviewed: Confirmed Right Clavicle fracture with no angulation or AC separation,No comminution or associated scapular fracture noted --- Assessment: 1. Right Clavicle Fracture, Closed 2. Ground-level fall without head injury or additional trauma --- Plan: 1. Conservative management at this time with a sling for comfort 2. Neurovascular monitoring of the right upper extremity 3. Ice and pain management with acetaminophen or NSAIDs as tolerated 4. Ortho clinic follow-up in 710 days for repeat exam and X-ray 5. Educated patient on signs of complications (e.g., increased swelling, numbness, skin changes) and advised to return to ED if these occur 6. If significant displacement occurs or functional demand changed and reported to be high on followoup, surgical fixation (ORIF) may be considered Krissy Prakash educational/development assistant Surgeon agrees with above plan Discussed above with Patient , ER bedside urse and Provider Plan discussed with: Patient, Other (bedside nurse) Visit Coding Surgery Date of Service if different f: Sep 01, 2024 Billing Provider: BE COLVIN Surgery Visit Codes: 26381 - INP CONSULT <55 MIN BE COLVIN Sep 02, 2024 19:55
[2024-09-03] VITALS (25 sets, daily range): BP systolic 113–146; BP diastolic 45–108; PULSE 82–114; RESP 12–27; TEMP 97.7–99.8; O2SAT 91–100
[2024-09-03] MEDS: VANCOMYCIN 1GM/200ML PM 200 ML IV ONE (02:02)
[2024-09-03] MEDS: HALOPERIDOL LACTATE 5 MG/ML INJ VIAL IM ONE (03:09)
--- NOTE | 2024-09-03 10:55 | DVHPN2 ---
Progress Note - Dictate Date Seen: Sep 03, 2024 Medical Necessity Reason Pt with a Central, PICC or Fol: No Subjective Patient is comfortable in bed. Talking to his over the phone. Still continued to have intermittent lapses in his memory and confusion. Patient's chest tube is intact. Still draining serosanguineous fluid. vital signs Vital Sign Date Time Temp Pulse Resp B/P (MAP) Pulse Ox O2 Delivery O2 Flow Rate FiO2 09/03/24 10:00 99.0 101 20 143/72 (95) 97 99.0 09/03/24 10:00 Nasal Cannula* 3 32 Total Intake and Output 09/02/24 09/02/24 09/03/24 15:00 23:00 07:00 Intake Total 300 ml 600 ml 500 ml Output Total 2350 ml 990 ml Balance 300 ml -1750 ml -490 ml medications Current Medications Medications Dose Ordered Sig/Imtiaz Route Start Time Stop Time Status Last Admin Dose Admin Nitroglycerin 0.4 mg Q5MINP PRN SL 09/01/24 14:15 Morphine Sulfate 2 mg Q30M PRN IV 09/01/24 14:15 Diagnostic Test (Pha) 1 strip ACHS 09/01/24 17:00 09/03/24 06:52 1 STRIP Insulin Human Regular ACHS SC 09/01/24 17:00 09/03/24 06:58 6 UNITS Dextrose 50 ml UD PRN IV 09/01/24 14:15 Aspirin 81 mg DAILY PO 09/02/24 10:00 09/03/24 09:56 81 MG Atorvastatin Calcium 20 mg HS PO 09/01/24 22:00 09/02/24 21:54 20 MG Metoprolol Tartrate 1.25 mg Q6HPRN PRN IV 09/01/24 14:15 Metoprolol Tartrate 12.5 mg BID PO 09/01/24 22:00 09/03/24 09:56 12.5 MG Ceftriaxone Sodium 50 ml @ 100 mls/hr DAILY@09 IV 09/02/24 09:00 09/03/24 09:53 100 MLS/HR Vancomycin HCl 0 ml @ 0 mls/hr UD IV 09/01/24 14:15 Furosemide 40 mg DAILY IV 09/02/24 10:00 09/03/24 09:53 40 MG Vancomycin HCl 100 ml @ 100 mls/hr Q18H IV 09/02/24 08:00 09/03/24 02:00 100 MLS/HR [place] Carbonate 300 mg BID PO 09/03/24 22:00 UNV objective Alert awake oriented to place and person. Comfortable in bed. HEENT neck supple no JVD pupils equal round react to light. Heart regular rate and rhythm S1-S2. Lungs fair air movement with a degraded breath sounds in the left lung. Chest tube will expansion. Abdomen is soft nontender positive bowel sounds. Extremities no edema positive pulses. laboratory and microbiology Laboratory Tests 09/03/24 04:58 09/02/24 04:39 Test 09/02/24 04:39 Range/Units Serum Glucose 136 #H 74-106 mg/dL Assessment/Plan Pending tele psych consultation. Continue lithium. Patient had a coronary angiogram with LAD stent in May 2023. At that time he is recommended to be on aspirin and Brilinta. Given he is out of 12 months from the stent I will continue aspirin and hold Brilinta due to chest tube placement with the risk of bleeding. We will have cardiac consultation to make further recommendations. Meantime continue current antibiotics supportive care and treatment as he is on. Patient evaluated by Orthopedic for clavicle fracture recommended conservative treatment at present. Further clinical management per clinical course. Discussed with the nurse at bedside regarding care plan. Problems(with codes): (1) Acute metabolic encephalopathy (2) Right clavicle fracture (3) Pleural effusion, left Plan discussed with: Patient, Other YUNIOR CARNEY MD Sep 03, 2024 10:55
[2024-09-03 13:07] LABS: Protein, Body Fluid 3.3 g/dL (.)
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
--- NOTE | 2024-09-03 16:46 | DVHINCON2 ---
Date Seen: Sep 03, 2024 Referring Physician MD Susan Reason for Consultation CAD with stent History of Present Illness This is a 69-year-old male patient who presents to emergency room with chief complaint of multiple falls and right shoulder, right rib, and right hip pain. At the time of assessment, the patient was confused and only alert to self and place. History obtained from medical records as well as bedside RN. Spoke with patients daughter Lucy via telephone who was a very poor historian and unable to help. Per ER documentation, the patient has sustained multiple falls over a period of four days. The patient was also experiencing hallucinations and seeing "demons". Cardiology has been consulted at this time given the patient's history of coronary artery disease. No twelve lead electrocardiogram was done prior to cardiology consultation. The patient denies any cardiac symptoms. Serial troponin levels have been negative. Significant past medical history includes coronary artery disease status post PTCA x1 EMELIA to LAD (on ASA and Brilinta), hypertension, dyslipidemia, type 2 diabetes mellitus, bipolar disorder, and schizophrenia. Unable to verify if the patient follows up with a replanter in the outpatient setting. Past Medical History Past medical history reviewed. No other significant than mentioned above. Past Surgical History Pilonidal Cystectomy Family History: Ischemic heart disease G8 MOTHER G8 FATHER Family History Family history reviewed. Social History Denies the use of tobacco, alcohol or illicit drugs. Allergies: Coded Allergies: NO KNOWN ALLERGIES (Unverified , 06/18/23) Home Meds Reported Medications Atorvastatin Calcium (ATORVASTATIN CALCIUM) 20 Mg Tab, 1 TAB PO DAILY for 90 Days, #90 09/03/24 Propranolol Hcl (Inderal La) 60 Mg Cap, 1 CAP PO DAILY for htn, #90 CAP 1 Refill 06/18/23 Isosorbide Mononitrate (Isosorbide Mononitrate Er) 30 Mg Tab, 30 MG PO DAILY for angina, MG 06/18/23 Benztropine Mesylate (Benztropine Mesylate) 1 Mg Tab, 1 TAB PO BID for 60 Days, #120 06/18/23 Glipizide (Glipizide) 10 Mg Tab, 1 TAB PO BID for DIABETES for 90 Days, #180 06/18/23 Aspirin (Aspirin) 325 Mg Tab, 325 MG PO DAILY for cad, MG 06/18/23 Sitagliptin Phosphate (Januvia) 100 Mg Tab, 1 TAB PO DAILY for DIABETES for 90 Days, #90 06/18/23 Trazodone Hcl (Trazodone Hcl) 50 Mg Tab, 3 TAB PO HS for 60 Days, #180 06/18/23 [place] Carbonate ([place] Carbonate) 300 Mg Cap, 1 TAB PO DAILY for 60 Days, #60 06/18/23 Home Meds Home medications reviewed. Current Medications Current Medications Medications (Trade) Dose Ordered Sig/Imtiaz Route PRN Reason Start Time Stop Time Status Last Admin [place] Carbonate 300 mg BID PO 09/03/24 22:00 Review of Systems Constitutional: No symptom reported Ears, Nose, & Throat: No symptom reported Eyes: No symptom reported Neurological: No symptoms reported Pulmonary/Respiratory: No symptoms reported Cardiovascular: No symptom reported Gastrointestinal: No symptom reported Genitourinary: No symptom reported Musculoskeletal: Right shoulder, right rib and right hip pain Skin: No symptom reported Psychiatric: No symptom reported Endocrine: No symptom reported Hematologic/Lymphatic: No symptom reported Vital Signs Vital Signs Date Time Temp Pulse Resp B/P (MAP) Pulse Ox O2 Delivery O2 Flow Rate FiO2 09/03/24 15:01 98 24 123/45 (71) 97 09/03/24 14:00 Nasal Cannula* 2 28 09/03/24 12:00 99.6 99.6 Physical Exam General Appearance: Cooperative. Well-developed. Well-nourished. No acute distress. Pulmonary/Respiratory: Clear, bilateral breaths sounds. Cardiovascular/Chest: Regular rate and rhythm. Peripheral Pulses: 2+ Radial (R). 2+ Radial (L). 2+ Pedal (R). 2+ Pedal (L) Abdominal Exam: Normal bowel sounds. Soft, non-tender. Ankle Exam: Negative ankle edema Lower extremities: Negative lower extremity edema Neuro/Mental Status: A/OX2, confused Thoughts/Psych: Disorganized Appearance: No acute distress. Skin Exam: Normal inspection. Normal color. Warm and dry. Labs/Diagnostic Data Labs Test 09/03/24 10:52 09/03/24 04:58 09/02/24 10:49 09/02/24 04:39 Range/Units POC Glucose 205 H 70-106 mg/dl Creatinine 0.96 0.700-1.30 mg/dL Glomerular Filtration Rate Calc 85 >90 mL/min Body Fluid Source Pleural fluid Body Fluid pH 9.0 Body Fluid WBC (Manual) 311 H 0-200 CUMM Body Fluid RBC (Manual) 56871 H 0-2000 CUMM Body Fluid Mononuclear Cells 79 % Body Fluid Polymorphonuclear Cells 21 0-25 % Body Fluid Glucose 139 . mg/dL Body Fluid Total Protein 3.3 . g/dL Body Fluid Lactate Dehydrogenase 544 . IU/L White Blood Count 18.3 H 4.4-10.8 10^3/uL Red Blood Count 4.93 4.5-5.90 10^6/uL Hemoglobin 15.0 13.5-17.5 g/dL Hematocrit 44.0 41.0-53.0 % Mean Corpuscular Volume 89.4 80.0-100.0 fL Mean Corpuscular Hemoglobin 30.5 28.0-32.0 pg Mean Corpuscular Hemoglobin Concent 34.1 32.0-36.0 g/dL Red Cell Distribution Width 13.3 11.8-14.3 % Platelet Count 361 140-450 10^3/uL Mean Platelet Volume 6.9 6.9-10.8 fL Neutrophils (%) (Auto) 83.4 H 37.0-80.0 % Lymphocytes (%) (Auto) 6.7 L 10.0-50.0 % Monocytes (%) (Auto) 8.1 0.0-12.0 % Eosinophils (%) (Auto) 1.4 0.0-7.0 % Basophils (%) (Auto) 0.4 0.0-2.0 % Neutrophils # (Auto) 15.3 H 1.6-8.6 10 ^3/uL Lymphocytes # (Auto) 1.2 0.4-5.4 10 ^3/uL Monocytes # (Auto) 1.5 H 0-1.3 10 ^3/uL Eosinophils # (Auto) 0.3 0-0.8 10 ^3/uL Basophils # (Auto) 0.1 0-0.2 10 ^3/uL Nucleated Red Blood Cells 0.0 % Sodium Level 138 # 136-145 mmol/L Potassium Level 4.9 3.5-5.1 mmol/L Chloride Level 102 98-107 mmol/L Carbon Dioxide Level 28 20-31 mmol/L Anion Gap 8 5-15 Blood Urea Nitrogen 15 9-23 mg/dL BUN/Creatinine Ratio 18.1 10.0-20.0 Serum Glucose 136 #H 74-106 mg/dL Calcium Level 9.4 8.7-10.4 mg/dL Total Bilirubin 0.6 0.2-1.0 mg/dL Aspartate Amino Transferase (AST) 51 H 13-40 U/L Alanine Aminotransferase (ALT) 48 H 7-40 U/L Alkaline Phosphatase 64 46-116 U/L Total Protein 6.0 5.7-8.2 g/dL Albumin 3.2 3.2-4.8 g/dL Test 09/01/24 15:10 09/01/24 14:14 09/01/24 13:12 09/01/24 11:41 Range/Units Troponin I High Sensitivity < 3 L </=54 ng/L Prothrombin Time 11.1 9.3-11.8 sec Prothrombin Time INR 1.05 0.9-1.15 Activated Partial Thromboplast Time 30.3 24.5-34.5 SEC Thyroid Stimulating Hormone (TSH) 0.44 L 0.55-4.78 uIU/mL Free Thyroxine (T4) Calculated 1.31 0.89-1.76 ng/dL [place] Level 0.2 L 0.5-1.2 mmol/L Lactic Acid Level 1.6 0.4-2.0 mmol/L Test 09/01/24 08:21 Range/Units B-Type Natriuretic Peptide 26.30 0-100 pg/mL Microbiology Date/Time Source Procedure Growth Status 09/02/24 10:49 Pleural Fluid Gram Stain - Final Resulted 09/02/24 10:49 Pleural Fluid Body Fluid Culture - Preliminary Resulted 09/01/24 11:49 Blood Blood Culture - Preliminary NO GROWTH AFTER 48 HOURS OF INCUBATION. Resulted Assessment Coronary artery disease s/p PTCA X 1 EMELIA to LAD (on aspirin and Brilinta) Hypertension Dyslipidemia Acute distal right clavicular fracture Large left pleural effusion s/p thoracentesis and chest tube placement Type 2 diabetes mellitus Bipolar disorder Schizophrenia Plan/Recommendation We will continue with the following plan/recommendations (Dr. Stout): Case discussed with . Transthoracic echocardiogram reveals EF 65% with pericardial effusion noted without any hemodynamic compromise. The patient recently underwent a coronary angiogram with left heart catheterization on 06/20/2023 in which one stent was placed to the left anterior descending coronary artery. The patient has been on dual antiplatelet therapy since then per records. Given that the patient currently has a chest tube with sanguineous drainage, we will hold antiplatelet therapy. Closely monitor hemoglobin and hematocrit and platelet count. Consider restarting Single antiplatelet therapy with stable H&H and platelet count. Continue with lipid-lowering agent. Obtain a twelve lead electrocardiogram. Close cardiac surveillance. Thank you for allowing us to care for this patient. Please call with any questions or concerns. Critical care time spent: 43 minutes This medical document was created using an electronic medical record system with voice recognition software and computerized dictation system. Although this document has been carefully reviewed, there might still be some phonetic and typographical errors. Occasional wrong-word or ``sound-alike substitutions may have occurred due to the inherent limitations of voice recognition software. These areas are purely typographical due to imperfections of the software programs and do not reflect any compromise in the patient's medical care. Please read the chart carefully and recognize, using context, where these substitutions have occurred. Plan discussed with: Patient NYHA Physical activity limitations: NA Date of Service: Sep 03, 2024 Billing Provider: RANGEL ARRIETA Cardiology Common Codes: 00816-AFMSGHX INP/OBS CARE (High) Cardiology Consultation Codes: 09155-[id number] CONSULT <45MIN RANGEL ARRIETA Sep 03, 2024 16:45
--- NOTE | 2024-09-03 16:56 | DVH ---
EXAM: XY CHEST XRAY 1 VIEW TECHNIQUE: Single frontal chest radiograph CLINICAL HISTORY: INTERVAL CHANGES IN LEFT PLEURAL EFFUSION COMPARISON: XY CHEST XRAY 1 VIEW on DOS: 09/02/24, XY CHEST PORTABLE on DOS: 09/02/24, XY CHEST XRAY 1 EW on DOS: 09/01/24 Findings/Impression: Frontal chest radiograph demonstrates no acute osseous or superficial soft tissue abnormalities. The trachea is slightly deviated to the right. The cardiac silhouette and mediastinum are partially o bscured. Small to moderate left pleural effusion with compressive atelectasis. A superimposed infectious proce ss is not excluded. Left-sided pigtail catheter overlying the left lower hemithorax. No pneumothorax.
--- NOTE | 2024-09-03 19:42 | DVHPN2 ---
Progress Note - Dictate Date Seen: Sep 03, 2024 Medical Necessity Reason Pt with a Central, PICC or Fol: Yes The following are medically ne: Kim Catheter Reason for kim catheter: Strict I&O Subjective Patient seen and examined at bedside. Remains on supplemental oxygen Overnight events reviewed. vital signs Vital Sign Date Time Temp Pulse Resp B/P (MAP) Pulse Ox O2 Delivery O2 Flow Rate FiO2 09/03/24 18:01 114 18 131/84 (100) 97 09/03/24 16:01 97.8 97.8 09/03/24 14:00 Nasal Cannula* 2 28 Total Intake and Output 09/02/24 09/02/24 09/03/24 15:00 23:00 07:00 Intake Total 300 ml 600 ml 500 ml Output Total 2350 ml 990 ml Balance 300 ml -1750 ml -490 ml medications Current Medications Medications Dose Ordered Sig/Imtiaz Route Start Time Stop Time Status Last Admin Dose Admin Nitroglycerin 0.4 mg Q5MINP PRN SL 09/01/24 14:15 Morphine Sulfate 2 mg Q30M PRN IV 09/01/24 14:15 Diagnostic Test (Pha) 1 strip ACHS 09/01/24 17:00 09/03/24 18:45 1 STRIP Insulin Human Regular ACHS SC 09/01/24 17:00 09/03/24 18:45 4 UNITS Dextrose 50 ml UD PRN IV 09/01/24 14:15 Atorvastatin Calcium 20 mg HS PO 09/01/24 22:00 09/02/24 21:54 20 MG Metoprolol Tartrate 1.25 mg Q6HPRN PRN IV 09/01/24 14:15 Metoprolol Tartrate 12.5 mg BID PO 09/01/24 22:00 09/03/24 09:56 12.5 MG Ceftriaxone Sodium 50 ml @ 100 mls/hr DAILY@09 IV 09/02/24 09:00 09/03/24 09:53 100 MLS/HR Vancomycin HCl 0 ml @ 0 mls/hr UD IV 09/01/24 14:15 Furosemide 40 mg DAILY IV 09/02/24 10:00 09/03/24 09:53 40 MG Vancomycin HCl 100 ml @ 100 mls/hr Q18H IV 09/02/24 08:00 09/03/24 02:00 100 MLS/HR [place] Carbonate 300 mg BID PO 09/03/24 22:00 objective Gen.: Patient lying in bed in no apparent distress. On supplemental oxygen. Head: Normocephalic, atraumatic. Eyes: EOMI/PERRLA. Ears: Normal hearing. Normal anatomy. Neck/trachea: Trachea midline, supple. Nose: Normal external anatomy. Mouth: Moist mucous membranes. Chest: Decreased air entry bilaterally. No wheezing or rhonchi. Cardiovascular: Positive S1, positive S2. Regular rate and rhythm. Abdomen: Positive bowel sounds in all 4 quadrants. Soft, non-tender, non- distended. : Deferred. Rectal: Deferred. Skin: Warm, dry. Intact. Extremities: 2+ radial pulses bilaterally. No lower extremity edema. Neuro: Awake, alert, oriented x3. No gross motor or sensory deficits. Cranial nerves II through XII intact. Gait not assessed. laboratory and microbiology Laboratory Tests 09/03/24 04:58 09/02/24 04:39 Test 09/02/24 04:39 Range/Units Serum Glucose 136 #H 74-106 mg/dL Assessment/Plan Impression: Acute hypoxic respiratory failure Dependence on supplemental oxygen Massive left pleural effusion Atelectasis Coronary artery disease s/p PTCA Acute metabolic encephalopathy Right clavicle fracture Nicotine dependence Events: Remains on supplemental oxygen, 2 LPM NC Taper O2 as tolerated Continue antibiotics Incentive spirometry Blood cultures show no growth after 48 hours Pleural fluid cultures show no growth Chest tube shows improved output - initially serosanguineous, now serous. Obtain CXR in the AM for interval changes Diurese as tolerated w/ Lasix Monitor renal function. Monitor electrolytes. Supplement as necessary. Accu-Cheks, ISS. Labs and imaging reviewed. Rest of plan as noted below. Plan: Supplemental oxygen Titrate to keep O2 sats above 92%. S/p placement of left Mark chest tube on 09/02/24 - chest x-rays confirmed placement. See separate procedure note for details of procedure. Continue antibiotics Incentive spirometry Smoking cessation discussed for greater than 10 minutes Monitor renal function. Monitor electrolytes. Supplement as necessary. Monitor ins and outs. DVT prophylaxis. Prognosis: Poor given patient's multiple co-morbidities. Rest of plan per hospitalist and other consultants. Thank you Dr. Wells for allowing me to participate in this patient's care. Further recommendations will depend on the patient's clinical course. Please do not hesitate to contact me if you have any questions or concerns. This medical document was created using an electronic medical record system with [employer] computerized dictation system. Although these documentations are being carefully reviewed, there may still be some phonetic and typographical changes. The errors are purely typographical, due to imperfection on the software program, and do not reflect any compromise in the patient's medical care. Plan discussed with: Patient, Other (EDMUND Caban) HAYLEE BULLOCK MD Sep 03, 2024 19:42
[2024-09-03] MEDS: VANCOMYCIN 1GM/200ML PM 200 ML IV SCH (21:13)
[2024-09-03] MEDS: LITHIUM CARBONATE 300 MG TAB PO SCH (22:34)
[2024-09-04] VITALS (10 sets, daily range): BP systolic 112–131; BP diastolic 58–102; PULSE 84–103; RESP 12–29; TEMP 97.9–98; O2SAT 91–98
[2024-09-04] MEDS: HALOPERIDOL LACTATE 5 MG/ML INJ VIAL IM ONE (03:50)
[2024-09-04 06:07] LABS: Basophils # (auto) 0.1 10 ^3/uL (0-0.2); Basophils % (auto) 0.4 % (0.0-2.0); Eosinophils # (auto) 0.1 10 ^3/uL (0-0.8); Eosinophils % (auto) 0.5 % (0.0-7.0); Hemoglobin 15.6 g/dL (13.5-17.5); Lymphocytes # (auto) 1.4 10 ^3/uL (0.4-5.4); Lymphocytes % (auto) 6.2 % (10.0-50.0); Mean Corpuscular Hemoglobin 30.3 pg (28.0-32.0); Mean Corpuscular Hgb Conc. 34.7 g/dL (32.0-36.0); Mean Corpuscular Volume 87.2 fL (80.0-100.0); Monocytes # (auto) 1.7 10 ^3/uL (0-1.3); Monocytes % (auto) 7.5 % (0.0-12.0); Neutrophils # (auto) 19.3 10 ^3/uL (1.6-8.6); Neutrophils % (auto) 85.4 % (37.0-80.0); Platelet Count (auto) 438 10^3/uL (140-450); Red Blood Cells 5.16 10^6/uL (4.5-5.90); White Blood Cell 22.6 10^3/uL (4.4-10.8)
[2024-09-04 06:12] LABS: Anion Gap 8 (5-15); Carbon Dioxide 27 mmol/L (20-31); Potassium 3.9 mmol/L (3.5-5.1)
[2024-09-04 06:13] LABS: Calcium 9.1 mg/dL (8.7-10.4)
[2024-09-04 06:18] LABS: BUN/Creatinine Ratio 25.7 (10.0-20.0)
[2024-09-04 06:23] LABS: Blood Urea Nitrogen 26 mg/dL (9-23); Chloride 98 mmol/L (98-107); Glucose 266 mg/dL (74-106); Sodium 133 mmol/L (136-145)
--- NOTE | 2024-09-04 09:09 | DVH ---
EXAM: XY CHEST PORTABLE Indication: LEFT PLEURAL EFFUSION Technique: Single frontal view of the chest was obtained Comparison: XY CHEST XRAY 1 VIEW on DOS: 09/03/24, XY CHEST XRAY 1 VIEW on DOS: 09/02/24, XY CHEST PORTAB LE on DOS: 09/02/24, XY CHEST XRAY 1 VIEW on DOS: 09/01/24, XY CHEST PORTABLE on DOS: 09/01/24 FINDINGS: Lines and Tubes: None Lungs: Moderate left pleural effusion with multifocal left lung opacities. Left pigtail catheter is visualized. No pneumothorax. Cardiomediastinal contours: Unremarkable Bones: No acute osseous abnormality. Nondisplaced fracture of the distal clavicle. IMPRESSION: No significant change compared to prior exam.
--- NOTE | 2024-09-04 13:07 | DVHPN2 ---
Progress Note - Dictate Date Seen: Sep 04, 2024 Medical Necessity Reason Pt with a Central, PICC or Fol: Yes The following are medically ne: Kim Catheter Reason for kim catheter: Strict I&O Subjective Patient is comfortable in bed. When asked denied any complaints of chest pain or trouble breathing. Evaluated by psychiatrist recommending trial of Risperdal at night. Continue lithium. Patient has left chest tube and follow up x-ray still showing moderate left pleural effusion but no pneumothorax. vital signs Vital Sign Date Time Temp Pulse Resp B/P (MAP) Pulse Ox O2 Delivery O2 Flow Rate FiO2 09/04/24 11:00 94 22 127/71 (89) 94 09/04/24 07:30 97.4 97.4 09/04/24 07:30 Room Air* 0 21 Total Intake and Output 09/03/24 09/03/24 09/04/24 15:00 23:00 07:00 Intake Total 100 ml 750 ml 800 ml Output Total 1300 ml 845 ml Balance 100 ml -550 ml -45 ml medications Current Medications Medications Dose Ordered Sig/Imtiaz Route Start Time Stop Time Status Last Admin Dose Admin Nitroglycerin 0.4 mg Q5MINP PRN SL 09/01/24 14:15 Morphine Sulfate 2 mg Q30M PRN IV 09/01/24 14:15 Diagnostic Test (Pha) 1 strip ACHS 09/01/24 17:00 09/04/24 11:47 1 STRIP Insulin Human Regular ACHS SC 09/01/24 17:00 09/04/24 11:46 6 UNITS Dextrose 50 ml UD PRN IV 09/01/24 14:15 Atorvastatin Calcium 20 mg HS PO 09/01/24 22:00 09/03/24 22:34 20 MG Metoprolol Tartrate 1.25 mg Q6HPRN PRN IV 09/01/24 14:15 Metoprolol Tartrate 12.5 mg BID PO 09/01/24 22:00 09/04/24 09:54 12.5 MG Ceftriaxone Sodium 50 ml @ 100 mls/hr DAILY@09 IV 09/02/24 09:00 09/04/24 09:54 100 MLS/HR Vancomycin HCl 0 ml @ 0 mls/hr UD IV 09/01/24 14:15 Furosemide 40 mg DAILY IV 09/02/24 10:00 09/04/24 09:53 40 MG [place] Carbonate 300 mg BID PO 09/03/24 22:00 09/04/24 09:54 300 MG Vancomycin HCl 200 ml @ 200 mls/hr Q12H IV 09/03/24 21:00 09/04/24 09:57 200 MLS/HR Risperidone 0.5 mg HS PO 09/04/24 22:00 UNV objective Alert awake oriented to place and person. Comfortable in bed. HEENT neck supple no JVD pupils equal round react to light. Heart regular rate and rhythm S1-S2. Lungs fair air movement with a degraded breath sounds in the left lung. Chest tube will expansion. Abdomen is soft nontender positive bowel sounds. Extremities no edema positive pulses. laboratory and microbiology Laboratory Tests 09/04/24 05:44 Test 09/04/24 05:44 Range/Units Serum Glucose 266 #H 74-106 mg/dL Assessment/Plan Continue lithium and add Risperdal at night for has a mood stabilizing agent per psychiatric recommendations. We will continue aspirin daily given a LAD stent in June 20 however DC Brilinta. Downgrade him to telemetry floor today. Otherwise continue current antibiotics, rest of supportive care and treatment as he is on. His further clinical management per clinical course and recommendations from the consultants. Discussed with the patient and nurse regarding care plan. Dr. Brown incoming hospitalist will take over care and further manage as deemed appropriate. Problems(with codes): (1) Pleural effusion, left (2) Right clavicle fracture (3) Acute metabolic encephalopathy (4) Atypical chest pain Plan discussed with: Patient, Other YUNIOR CARNEY MD Sep 04, 2024 13:07
[2024-09-04] MEDS: ASPirin-EC 81 mg tab PO SCH (13:30)
--- NOTE | 2024-09-04 15:29 | DVHPN2 ---
Consult Progress Note Subjective Other Systems: Patient denies any cardiac symptoms at time of assessment. Remains confused Objective vital signs Vital Sign Date Time Temp Pulse Resp B/P (MAP) Pulse Ox O2 Delivery O2 Flow Rate FiO2 09/04/24 11:00 94 22 127/71 (89) 94 09/04/24 07:30 97.4 97.4 09/04/24 07:30 Room Air* 0 21 Total Intake and Output 09/03/24 09/03/24 09/04/24 15:00 23:00 07:00 Intake Total 100 ml 750 ml 800 ml Output Total 1300 ml 845 ml Balance 100 ml -550 ml -45 ml medications Current Medications Medications Dose Ordered Sig/Imtiaz Route Start Time Stop Time Status Last Admin Dose Admin Nitroglycerin 0.4 mg Q5MINP PRN SL 09/01/24 14:15 Morphine Sulfate 2 mg Q30M PRN IV 09/01/24 14:15 Diagnostic Test (Pha) 1 strip ACHS 09/01/24 17:00 09/04/24 11:47 1 STRIP Insulin Human Regular ACHS SC 09/01/24 17:00 09/04/24 11:46 6 UNITS Dextrose 50 ml UD PRN IV 09/01/24 14:15 Atorvastatin Calcium 20 mg HS PO 09/01/24 22:00 09/03/24 22:34 20 MG Metoprolol Tartrate 1.25 mg Q6HPRN PRN IV 09/01/24 14:15 Metoprolol Tartrate 12.5 mg BID PO 09/01/24 22:00 09/04/24 09:54 12.5 MG Ceftriaxone Sodium 50 ml @ 100 mls/hr DAILY@09 IV 09/02/24 09:00 09/04/24 09:54 100 MLS/HR Vancomycin HCl 0 ml @ 0 mls/hr UD IV 09/01/24 14:15 Furosemide 40 mg DAILY IV 09/02/24 10:00 09/04/24 09:53 40 MG [place] Carbonate 300 mg BID PO 09/03/24 22:00 09/04/24 09:54 300 MG Vancomycin HCl 200 ml @ 200 mls/hr Q12H IV 09/03/24 21:00 09/04/24 09:57 200 MLS/HR Risperidone 0.5 mg HS PO 09/04/24 22:00 Aspirin 81 mg DAILY PO 09/04/24 13:10 09/04/24 13:30 81 MG Examination: GENERAL:Abnormal (Generalized weakness), LUNGS:Abnormal (Left chest tube place), CVS:Normal, NEURO:Abnormal (Confused) laboratory and microbiology Laboratory Tests 09/04/24 05:44 Test 09/04/24 05:44 Range/Units Serum Glucose 266 #H 74-106 mg/dL Problem List/Assessment/Plan Problem List/Assessment/Plan Coronary artery disease s/p PTCA X 1 EMELIA to LAD (on aspirin and Brilinta) Hypertension Dyslipidemia Acute distal right clavicular fracture Large left pleural effusion s/p thoracentesis and chest tube placement Type 2 diabetes mellitus Bipolar disorder Schizophrenia Plan/Recommendation (Dr. Stout): Case discussed with . Transthoracic echocardiogram reveals EF 65% with pericardial effusion noted without any hemodynamic compromise. The patient recently underwent a coronary angiogram with left heart catheterization on 06/20/2023 in which one stent was placed to the left anterior descending coronary artery. The patient has been on dual antiplatelet therapy since then per records. Given that the patient currently has a chest tube and recently pulled out his chest tube, prompting reinsertion of chest tube, we will hold antiplatelet therapy. We will recommend to initiate single antiplatelet therapy with discontinuation of chest tube. Closely monitor hemoglobin and hematocrit and platelet count. Thank you for allowing us to care for this patient. Please call with any questions or concerns. This medical document was created using an electronic medical record system with voice recognition software and computerized dictation system. Although this document has been carefully reviewed, there might still be some phonetic and typographical errors. Occasional wrong-word or ``sound-alike substitutions may have occurred due to the inherent limitations of voice recognition software. These areas are purely typographical due to imperfections of the software programs and do not reflect any compromise in the patient's medical care. Please read the chart carefully and recognize, using context, where these substitutions have occurred. Plan discussed with: Other (Bedside RN) Date of Service: Sep 04, 2024 Billing Provider: RANGEL ARRIETA Common Visit Codes: [id number] INP/OBS CARE(HIGH) RANGEL ARRIETA Sep 04, 2024 15:29
--- NOTE | 2024-09-04 19:13 | DVHPN2 ---
Progress Note - Dictate Date Seen: Sep 04, 2024 Medical Necessity Reason Pt with a Central, PICC or Fol: Yes The following are medically ne: Kim Catheter Reason for kim catheter: Strict I&O Subjective Patient seen and examined at bedside. Remains on supplemental oxygen Overnight events reviewed. vital signs Vital Sign Date Time Temp Pulse Resp B/P (MAP) Pulse Ox O2 Delivery O2 Flow Rate FiO2 09/04/24 18:00 95 22 135/68 (90) 99 09/04/24 07:30 97.4 97.4 09/04/24 07:30 Room Air* 0 21 Total Intake and Output 09/03/24 09/03/24 09/04/24 15:00 23:00 07:00 Intake Total 100 ml 750 ml 800 ml Output Total 1300 ml 845 ml Balance 100 ml -550 ml -45 ml medications Current Medications Medications Dose Ordered Sig/Imtiaz Route Start Time Stop Time Status Last Admin Dose Admin Nitroglycerin 0.4 mg Q5MINP PRN SL 09/01/24 14:15 Morphine Sulfate 2 mg Q30M PRN IV 09/01/24 14:15 Diagnostic Test (Pha) 1 strip ACHS 09/01/24 17:00 09/04/24 17:34 1 STRIP Insulin Human Regular ACHS SC 09/01/24 17:00 09/04/24 17:34 8 UNITS Dextrose 50 ml UD PRN IV 09/01/24 14:15 Atorvastatin Calcium 20 mg HS PO 09/01/24 22:00 09/03/24 22:34 20 MG Metoprolol Tartrate 1.25 mg Q6HPRN PRN IV 09/01/24 14:15 Metoprolol Tartrate 12.5 mg BID PO 09/01/24 22:00 09/04/24 09:54 12.5 MG Ceftriaxone Sodium 50 ml @ 100 mls/hr DAILY@09 IV 09/02/24 09:00 09/04/24 09:54 100 MLS/HR Vancomycin HCl 0 ml @ 0 mls/hr UD IV 09/01/24 14:15 Furosemide 40 mg DAILY IV 09/02/24 10:00 09/04/24 09:53 40 MG [place] Carbonate 300 mg BID PO 09/03/24 22:00 09/04/24 09:54 300 MG Vancomycin HCl 200 ml @ 200 mls/hr Q12H IV 09/03/24 21:00 09/04/24 09:57 200 MLS/HR Risperidone 0.5 mg HS PO 09/04/24 22:00 Aspirin 81 mg DAILY PO 09/04/24 13:10 09/04/24 13:30 81 MG objective Gen.: Patient lying in bed in no apparent distress. On supplemental oxygen. Head: Normocephalic, atraumatic. Eyes: EOMI/PERRLA. Ears: Normal hearing. Normal anatomy. Neck/trachea: Trachea midline, supple. Nose: Normal external anatomy. Mouth: Moist mucous membranes. Chest: Decreased air entry bilaterally. No wheezing or rhonchi. Cardiovascular: Positive S1, positive S2. Regular rate and rhythm. Abdomen: Positive bowel sounds in all 4 quadrants. Soft, non-tender, non- distended. : Deferred. Rectal: Deferred. Skin: Warm, dry. Intact. Extremities: 2+ radial pulses bilaterally. No lower extremity edema. Neuro: Awake, alert, oriented x3. No gross motor or sensory deficits. Cranial nerves II through XII intact. Gait not assessed. laboratory and microbiology Laboratory Tests 09/04/24 05:44 Test 09/04/24 05:44 Range/Units Serum Glucose 266 #H 74-106 mg/dL Assessment/Plan Impression: Acute hypoxic respiratory failure Dependence on supplemental oxygen Massive left pleural effusion Atelectasis Coronary artery disease s/p PTCA Acute metabolic encephalopathy Right clavicle fracture Nicotine dependence Events: Remains on supplemental oxygen, 3 LPM NC Taper O2 as tolerated Head of bed elevation Aspiration precautions Complete antibiotic course Incentive spirometry Blood cultures show no growth after 72 hours Pleural fluid cultures show no growth CXR reviewed, no significant change - moderate left pleural effusion with multifocal left lung opacities. Left chest tube in place. Chest tube shows improved output - initially serosanguineous, now serous. No air leak Obtain CT chest without contrast to assess for interval changes Diurese as tolerated w/ Lasix Monitor renal function. Monitor electrolytes. Supplement as necessary. Accu-Cheks, ISS. Labs and imaging reviewed. Rest of plan as noted below. Plan: Supplemental oxygen Titrate to keep O2 sats above 92%. S/p placement of left Mark chest tube on 09/02/24 - chest x-rays confirmed placement. See separate procedure note for details of procedure. Continue antibiotics Incentive spirometry Smoking cessation discussed for greater than 10 minutes Monitor renal function. Monitor electrolytes. Supplement as necessary. Monitor ins and outs. DVT prophylaxis. Prognosis: Poor given patient's multiple co-morbidities. Rest of plan per hospitalist and other consultants. Thank you Dr. Wells for allowing me to participate in this patient's care. Further recommendations will depend on the patient's clinical course. Please do not hesitate to contact me if you have any questions or concerns. This medical document was created using an electronic medical record system with [employer] dictation system. Although these documentations are being carefully reviewed, there may still be some phonetic and typographical changes. The errors are purely typographical, due to imperfection on the software program, and do not reflect any compromise in the patient's medical care. Plan discussed with: Patient, Other (EDMUND Barker) HAYLEE BULLOCK MD Sep 04, 2024 19:13
--- NOTE | 2024-09-04 19:43 | DVH ---
EXAM: CT CHEST WITHOUT CONTRAST History: interval changes s/p left chest tube placement Comparison Study: None available TECHNIQUE: Multidetector CT of the chest was performed. Imaging was performed without IV contrast. Ax ial, coronal, and sagittal multiplanar reformats were obtained from the axial data set by the technol chad. Radiation Dose : CTDI vol 21.24 mGy, DLP 821.73 mGy*cm. Findings: Limited evaluation given noncontrast technique. Lungs: 0.5 cm left upper lobe pulmonary nodule. Near-complete atelectasis of the left lower lobe. Par tial atelectasis of the left upper lobe. Pleura: Trace right pleural effusion. Moderate left pleural effusion with scattered locules of air, s lightly decreased in size compared to prior. Pigtail drainage catheter terminates in the left lung ba se. Heart/Great vessels: No cardiomegaly or pericardial effusion. Mediastinum: Multiple prominent mediastinal and pericardial nodes. Fluid-filled esophagus. Soft tissues/Bones: Unremarkable 2.4 cm right adrenal nodule. The partially visualized upper abdomen is within normal limits. Impression: 1. Limited evaluation given noncontrast technique. 2. Moderate left pleural effusion with scattered locules of air, slightly decreased in size compared to prior. 3. Pigtail drainage catheter terminates in the left lung base. 4. Multiple prominent mediastinal and pericardial nodes, nonspecific. 5. 0.5 cm left upper lobe pulmonary nodule. 6. Fluid-filled esophagus places the patient at risk for aspiration.
[2024-09-04] MEDS: risperiDONE 1 MG TAB PO SCH (21:41)
[2024-09-05] VITALS (28 sets, daily range): BP systolic 93–152; BP diastolic 40–105; PULSE 71–141; RESP 16–72; TEMP 97.6–102.4; O2SAT 80–100
[2024-09-05 07:01] LABS: Basophils # (auto) 0 10 ^3/uL (0-0.2); Basophils % (auto) 0.1 % (0.0-2.0); Eosinophils # (auto) 0.5 10 ^3/uL (0-0.8); Eosinophils % (auto) 1.9 % (0.0-7.0); Hematocrit 41.4 % (41.0-53.0); Lymphocytes # (auto) 1.6 10 ^3/uL (0.4-5.4); Lymphocytes % (auto) 6.4 % (10.0-50.0); Mean Corpuscular Hemoglobin 29.5 pg (28.0-32.0); Mean Corpuscular Hgb Conc. 33.8 g/dL (32.0-36.0); Mean Corpuscular Volume 87.3 fL (80.0-100.0); Monocytes # (auto) 1.6 10 ^3/uL (0-1.3); Monocytes % (auto) 6.6 % (0.0-12.0); Neutrophils # (auto) 20.8 10 ^3/uL (1.6-8.6); Platelet Count (auto) 402 10^3/uL (140-450); Red Blood Cells 4.74 10^6/uL (4.5-5.90); Red Cell Distribution Width 12.7 % (11.8-14.3); White Blood Cell 24.5 10^3/uL (4.4-10.8)
[2024-09-05 07:05] LABS: Anion Gap 9 (5-15); Potassium 3.6 mmol/L (3.5-5.1)
[2024-09-05 07:07] LABS: Calcium 8.7 mg/dL (8.7-10.4)
[2024-09-05 07:11] LABS: BUN/Creatinine Ratio 29.4 (10.0-20.0); Chloride 98 mmol/L (98-107); Sodium 133 mmol/L (136-145)
[2024-09-05 07:13] LABS: Blood Urea Nitrogen 25 mg/dL (9-23); Glucose 215 mg/dL (74-106)
[2024-09-05 07:14] LABS: Carbon Dioxide 26 mmol/L (20-31)
--- NOTE | 2024-09-05 09:24 | DVH ---
EXAM: XY CHEST PORTABLE Indication: chest tube Technique: Single frontal view of the chest was obtained Comparison: XY CHEST PORTABLE on DOS: 09/04/24, XY CHEST XRAY 1 VIEW on DOS: 09/03/24, XY CHEST XRAY 1 V IEW on DOS: 09/02/24, XY CHEST PORTABLE on DOS: 09/02/24, XY CHEST XRAY 1 VIEW on DOS: 09/01/24, XY CHEST P ORTABLE on DOS: 09/04/24 FINDINGS: Lines and Tubes: Left pigtail catheter is unchanged. Lungs: Moderate left pleural effusion with multifocal left lung opacities. Left pigtail catheter is visualized. No pneumothorax. Cardiomediastinal contours: Unremarkable Bones: No acute osseous abnormality. Nondisplaced fracture of the distal clavicle. IMPRESSION: No significant change compared to prior exam.
--- NOTE | 2024-09-05 10:55 | DVHPN2 ---
Consult Progress Note Subjective Other Systems: Patient remains in normal sinus rhythm on monitoring tech Objective vital signs Vital Sign Date Time Temp Pulse Resp B/P (MAP) Pulse Ox O2 Delivery O2 Flow Rate FiO2 09/05/24 10:44 119/73 09/05/24 10:43 95 09/05/24 06:00 19 93 Nasal Cannula* 2 28 09/04/24 07:30 97.4 97.4 Total Intake and Output 09/04/24 09/04/24 09/05/24 15:00 23:00 07:00 Intake Total 540 ml Output Total 975 ml Balance -435 ml medications Current Medications Medications Dose Ordered Sig/Imtiaz Route Start Time Stop Time Status Last Admin Dose Admin Nitroglycerin 0.4 mg Q5MINP PRN SL 09/01/24 14:15 Morphine Sulfate 2 mg Q30M PRN IV 09/01/24 14:15 Diagnostic Test (Pha) 1 strip ACHS 09/01/24 17:00 09/05/24 06:25 1 STRIP Insulin Human Regular ACHS SC 09/01/24 17:00 09/05/24 06:25 4 UNITS Dextrose 50 ml UD PRN IV 09/01/24 14:15 Atorvastatin Calcium 20 mg HS PO 09/01/24 22:00 09/04/24 21:40 20 MG Metoprolol Tartrate 1.25 mg Q6HPRN PRN IV 09/01/24 14:15 Metoprolol Tartrate 12.5 mg BID PO 09/01/24 22:00 09/05/24 10:43 12.5 MG Ceftriaxone Sodium 50 ml @ 100 mls/hr DAILY@09 IV 09/02/24 09:00 09/05/24 08:44 100 MLS/HR Vancomycin HCl 0 ml @ 0 mls/hr UD IV 09/01/24 14:15 Furosemide 40 mg DAILY IV 09/02/24 10:00 09/05/24 10:44 40 MG [place] Carbonate 300 mg BID PO 09/03/24 22:00 09/05/24 10:42 300 MG Vancomycin HCl 200 ml @ 200 mls/hr Q12H IV 09/03/24 21:00 09/05/24 10:26 200 MLS/HR Risperidone 0.5 mg HS PO 09/04/24 22:00 09/04/24 21:41 0.5 MG Aspirin 81 mg DAILY PO 09/04/24 13:10 09/05/24 10:42 81 MG Examination: GENERAL:Abnormal (Generalized weakness), LUNGS:Abnormal (Left- sided chest tube in place), CVS:Normal, NEURO:Abnormal (Confused) laboratory and microbiology Laboratory Tests 09/05/24 05:56 Test 09/05/24 05:56 Range/Units Serum Glucose 215 H 74-106 mg/dL Problem List/Assessment/Plan Problem List/Assessment/Plan Coronary artery disease s/p PTCA X 1 EMELIA to LAD (on aspirin and Brilinta) Hypertension Dyslipidemia Pericardial effusion Acute distal right clavicular fracture Large left pleural effusion s/p thoracentesis and chest tube placement Type 2 diabetes mellitus Bipolar disorder Schizophrenia Plan/Recommendation (Dr. Stout): Case discussed with . Transthoracic echocardiogram reveals EF 65% with pericardial effusion noted without any hemodynamic compromise. The patient recently underwent a coronary angiogram with left heart catheterization on 06/20/2023 in which one stent was placed to the left anterior descending coronary artery. The patient has been on dual antiplatelet therapy since then per records. Given that the patient currently has a chest tube and recently pulled out his chest tube, prompting reinsertion of chest tube, we will recommend to hold antiplatelet therapy. Antiplatelet therapy was discontinued by cardiology team. It was then reinitiated by primary care team. Our recommendation remains to initiate single antiplatelet therapy with discontinuation of chest tube. Closely monitor hemoglobin and hematocrit and platelet count. Consider repeat limited echo to reassess pericardial effusion prior to discharge. There is no further inpatient cardiac workup indicated at this time. Please reconsult if needed. Thank you for allowing us to care for this patient. Please call with any questions or concerns. This medical document was created using an electronic medical record system with voice recognition software and computerized dictation system. Although this document has been carefully reviewed, there might still be some phonetic and typographical errors. Occasional wrong-word or ``sound-alike substitutions may have occurred due to the inherent limitations of voice recognition software. These areas are purely typographical due to imperfections of the software programs and do not reflect any compromise in the patient's medical care. Please read the chart carefully and recognize, using context, where these substitutions have occurred. Plan discussed with: Patient, Other (Bedside staff) Date of Service: Sep 05, 2024 Billing Provider: RANGEL ARRIETA Common Visit Codes: [id number] INP/OBS CARE(HIGH) RANGEL ARRIETA LEVEL DESIGNER Sep 05, 2024 10:55
--- NOTE | 2024-09-05 13:38 | DVHPN2 ---
Subjective Patient denies any complaints still has left chest tube. 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5 MG Ceftriaxone Sodium 50 ml @ 100 mls/hr DAILY@09 IV 09/02/24 09:00 09/05/24 08:44 100 MLS/HR Vancomycin HCl 0 ml @ 0 mls/hr UD IV 09/01/24 14:15 Furosemide 40 mg DAILY IV 09/02/24 10:00 09/05/24 10:44 40 MG [place] Carbonate 300 mg BID PO 09/03/24 22:00 09/05/24 10:42 300 MG Risperidone 0.5 mg HS PO 09/04/24 22:00 09/04/24 21:41 0.5 MG Aspirin 81 mg DAILY PO 09/04/24 13:10 09/05/24 10:42 81 MG Vancomycin HCl 250 ml @ 200 mls/hr Q12H IV 09/05/24 22:00 Laboratory Results Laboratory Tests 09/05/24 05:56 Chemistry Test 09/05/24 05:56 Calcium Level 8.7 mg/dL (8.7-10.4) Microbiology Microbiology Date/Time Source Procedure Growth Status 09/02/24 10:49 Pleural Fluid Gram Stain - Final Resulted 09/02/24 10:49 Pleural Fluid Body Fluid Culture - Preliminary Resulted 09/01/24 11:49 Blood Blood Culture - Preliminary NO GROWTH AFTER 72 HOURS OF INCUBATION. Resulted Assessment/Plan Assessment/Plan 69-year-old male with a known history of CAD status post PCI, hypertension, d yslipidemia who initially presented to the hospital with multiple falls found to have 1. Pleural effusion status post thoracentesis 2. Left-sided massive pleural effusion status post pigtail catheter placement 3. Acute metabolic encephalopathy with underlying psychiatric disorder 4. Mood disorder currently on lithium 5. Right clavicle fracture status post sling support, conservative management as per orthopedics 6. CAD status post LAD stents -continue chest tube follow up Pulmonary recommendations, pain management -plan of care discussed with the patient who understand and agreeable to plan, outpatient follow up with the Orthopedics for right clavicle fracture Plan discussed with: Patient Date of Service: Sep 05, 2024 Billing Provider: BRYSON SMITH MD Common Visit Codes: NOT BILLABLE BRYSON SMITH MD Sep 05, 2024 13:38
[2024-09-05] MEDS: NOREPINEPHRINE 8 MG/250ML KIT 250 ML IV ONE (18:06)
[2024-09-05] MEDS: PANTOPRAZOLE 40mg/50ML NS AE 50 ML IV SCH (18:13)
[2024-09-05] MEDS: PANTOPRAZOLE 40 MG/10 ML VIAL INJ IV ONE (18:13)
[2024-09-05] MEDS: SODIUM CHLORIDE 0.9% 500 ML IV ONE (18:14)
[2024-09-05 18:16] LABS: Base Excess -3.7 mmol/L (-2.0-3.0)
--- NOTE | 2024-09-05 18:30 | DVH ---
CHEST RADIOGRAPH Indication: TACHYPNEIC Technique: Single frontal view of the chest was obtained COMPARISON: XY CHEST PORTABLE on DOS: 09/05/24 FINDINGS: Lines and Tubes: None Lungs / Pleura: Pigtail catheter again noted at the left lung base. Opacities again noted throughout the left lung most prominent at the left lung base along with probable small left pleural effusion,, not significantly changed compared to the prior chest x-ray from earlier the same day. Stable mild dougherty bsegmental atelectasis at the right lung base. No pulmonary edema. No pneumothorax. Cardiomediastinal contours: Unremarkable IMPRESSION: Opacities in the left lung, not significantly changed compared to the prior chest x-ray from earlier the same day.
[2024-09-05] MEDS: ETOMIDATE (2MG/ML) 20ML VIAL IV ONE ×2 (18:43→23:48)
[2024-09-05] MEDS: ROCURONIUM 10MG/ML 10ML VIAL IV ONE ×2 (18:43→23:48)
--- NOTE | 2024-09-05 18:57 | DVHINCON2 ---
Date of service: Sep 05, [address] Brown Reason for Consultation GI bleed History of Present Illness This is a 69-year-old male patient who presents to emergency room with chief complaint of multiple falls and right shoulder, right rib, and right hip pain. At the time of assessment, the patient was confused and only alert to self and place. Per ER documentation, the patient has sustained multiple falls over a period of four days. The patient was also experiencing hallucinations and seeing "demons". Patient was evaluated by Cardiology and not felt to have any acute GI cardiac issues ongoing. Patient had moderate amount of blood in his pleural fluid from thoracentesis. GI was consulted because of sudden onset of moderate amount of GI bleed which appeared to be mostly dark and tarry. Patient had been stable this afternoon however his blood pressure was trending down and then he was noted to have a l arge dark bloody bowel movement. Patient was also experiencing some shortness of breath. An ABG had been done and the hemoglobin on the ABG was 10 and prior to that his hemoglobin had been 14. Patient has been on baby aspirin. Patient was running low blood pressures and he is just receiving a fluid bolus. Past Medical History Coronary artery disease status post PTCA x1 EMELIA to LAD (on ASA and Brilinta), hypertension, dyslipidemia, type 2 diabetes mellitus, bipolar disorder, and sc hizophrenia. Past Surgical History Pilonidal cyst Family History: Ischemic heart disease G8 MOTHER G8 FATHER Allergies: Coded Allergies: NO KNOWN ALLERGIES (Unverified , 06/18/23) Home Meds Reported Medications Atorvastatin Calcium (ATORVASTATIN CALCIUM) 20 Mg Tab, 1 TAB PO DAILY for 90 Days, #90 09/03/24 Propranolol Hcl (Inderal La) 60 Mg Cap, 1 CAP PO DAILY for htn, #90 CAP 1 Refill 06/18/23 Isosorbide Mononitrate (Isosorbide Mononitrate Er) 30 Mg Tab, 30 MG PO DAILY for angina, MG 06/18/23 Benztropine Mesylate (Benztropine Mesylate) 1 Mg Tab, 1 TAB PO BID for 60 Days, #120 06/18/23 Glipizide (Glipizide) 10 Mg Tab, 1 TAB PO BID for DIABETES for 90 Days, #180 06/18/23 Aspirin (Aspirin) 325 Mg Tab, 325 MG PO DAILY for cad, MG 06/18/23 Sitagliptin Phosphate (Januvia) 100 Mg Tab, 1 TAB PO DAILY for DIABETES for 90 Days, #90 06/18/23 Trazodone Hcl (Trazodone Hcl) 50 Mg Tab, 3 TAB PO HS for 60 Days, #180 06/18/23 [place] Carbonate ([place] Carbonate) 300 Mg Cap, 1 TAB PO DAILY for 60 Days, #60 06/18/23 Current Medications Current Medications Medications (Trade) Dose Ordered Sig/Imtiaz Route PRN Reason Start Time Stop Time Status Last Admin Risperidone (RisperDAL TABLET) 0.5 mg HS PO 09/04/24 22:00 09/04/24 21:41 Vancomycin HCl 250 ml @ 200 mls/hr Q12H IV 09/05/24 22:00 Pantoprazole Sodium 50 ml @ 10 mls/hr Q5H IV 09/05/24 18:00 09/05/24 18:13 Vital Signs Vital Signs Date Time Temp Pulse Resp B/P (MAP) Pulse Ox O2 Delivery O2 Flow Rate FiO2 09/05/24 18:24 100.0 97 47 106/42 (63) 80 100.0 09/05/24 08:14 Nasal Cannula* 2 28 Physical Exam HEENT pupils are reactive ; mild pallor, mild anxiety CV is S1-S2 regular rate and rhythm, blood pressure was running in the 80s but improved with a fluid bolus Respiratory diminished breath sounds bases mild tachypnea GI positive bowel sound 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 Labs/Diagnostic Data Labs Test 09/05/24 18:09 09/05/24 11:24 09/05/24 09:45 09/05/24 05:56 Range/Units Blood Gas Specimen Type Arterial Blood Gas Sample Site Left radial Blood Gas Patient Temperature 37.0 Arterial Blood Date Drawn [id number] Arterial Blood pH 7.498 H 7.350-7.450 Arterial Blood Partial Pressure CO2 24.1 L 35.0-48.0 mmHg Arterial Blood Partial Pressure O2 83.2 83.0-108.0 mmHg Arterial Blood HCO3 18.3 L 21.0-28.0 mmol/L Arterial Blood Oxygen Saturation 95.2 94.0-98.0 % Arterial Blood Base Excess -3.7 L -2.0-3.0 mmol/L Arterial Blood Oxyhemoglobin 94.5 94.0-98.0 % Arterial Blood Carboxyhemoglobin 0.3 L 0.5-1.5 % Arterial Blood Methemoglobin 0.4 0.0-1.5 % Ezekiel Test Yes Blood Gas Total Hemoglobin 10.00 L 13.5-17.5 g/dL Blood Gas Liter Flow 3.00 Blood Gas Modality Nasal cannula FiO2 % 32.0 POC Glucose 395 H 70-106 mg/dl Vancomycin Level Trough 8.8 5-10 ug/mL White Blood Count 24.5 H 4.4-10.8 10^3/uL Red Blood Count 4.74 4.5-5.90 10^6/uL Hemoglobin 14.0 13.5-17.5 g/dL Hematocrit 41.4 41.0-53.0 % Mean Corpuscular Volume 87.3 80.0-100.0 fL Mean Corpuscular Hemoglobin 29.5 28.0-32.0 pg Mean Corpuscular Hemoglobin Concent 33.8 32.0-36.0 g/dL Red Cell Distribution Width 12.7 11.8-14.3 % Platelet Count 402 140-450 10^3/uL Mean Platelet Volume 7.4 6.9-10.8 fL Neutrophils (%) (Auto) 85.0 H 37.0-80.0 % Lymphocytes (%) (Auto) 6.4 L 10.0-50.0 % Monocytes (%) (Auto) 6.6 0.0-12.0 % Eosinophils (%) (Auto) 1.9 0.0-7.0 % Basophils (%) (Auto) 0.1 0.0-2.0 % Neutrophils # (Auto) 20.8 H 1.6-8.6 10 ^3/uL Lymphocytes # (Auto) 1.6 0.4-5.4 10 ^3/uL Monocytes # (Auto) 1.6 H 0-1.3 10 ^3/uL Eosinophils # (Auto) 0.5 0-0.8 10 ^3/uL Basophils # (Auto) 0 0-0.2 10 ^3/uL Nucleated Red Blood Cells 0.0 % Sodium Level 133 L 136-145 mmol/L Potassium Level 3.6 3.5-5.1 mmol/L Chloride Level 98 98-107 mmol/L Carbon Dioxide Level 26 20-31 mmol/L Anion Gap 9 5-15 Blood Urea Nitrogen 25 H 9-23 mg/dL Creatinine 0.85 0.700-1.30 mg/dL Glomerular Filtration Rate Calc 93 >90 mL/min BUN/Creatinine Ratio 29.4 H 10.0-20.0 Serum Glucose 215 H 74-106 mg/dL Calcium Level 8.7 8.7-10.4 mg/dL Test 09/02/24 10:49 09/02/24 04:39 09/01/24 15:10 09/01/24 14:14 Range/Units Body Fluid Source Pleural fluid Body Fluid pH 9.0 Body Fluid WBC (Manual) 311 H 0-200 CUMM Body Fluid RBC (Manual) 84655 H 0-2000 CUMM Body Fluid Mononuclear Cells 79 % Body Fluid Polymorphonuclear Cells 21 0-25 % Body Fluid Glucose 139 . mg/dL Body Fluid Total Protein 3.3 . g/dL Body Fluid Lactate Dehydrogenase 544 . IU/L Total Bilirubin 0.6 0.2-1.0 mg/dL Aspartate Amino Transferase (AST) 51 H 13-40 U/L Alanine Aminotransferase (ALT) 48 H 7-40 U/L Alkaline Phosphatase 64 46-116 U/L Total Protein 6.0 5.7-8.2 g/dL Albumin 3.2 3.2-4.8 g/dL Troponin I High Sensitivity < 3 L </=54 ng/L Prothrombin Time 11.1 9.3-11.8 sec Prothrombin Time INR 1.05 0.9-1.15 Activated Partial Thromboplast Time 30.3 24.5-34.5 SEC Thyroid Stimulating Hormone (TSH) 0.44 L 0.55-4.78 uIU/mL Free Thyroxine (T4) Calculated 1.31 0.89-1.76 ng/dL [place] Level 0.2 L 0.5-1.2 mmol/L Test 09/01/24 13:12 09/01/24 11:41 09/01/24 08:21 Range/Units Lactic Acid Level 1.6 0.4-2.0 mmol/L B-Type Natriuretic Peptide 26.30 0-100 pg/mL Microbiology Date/Time Source Procedure Growth Status 09/02/24 10:49 Pleural Fluid Gram Stain - Final Resulted 09/02/24 10:49 Pleural Fluid Body Fluid Culture - Preliminary Resulted 09/01/24 11:49 Blood Blood Culture - Preliminary NO GROWTH AFTER 72 HOURS OF INCUBATION. Resulted CXR IMPRESSION: Opacities in the left lung, not significantly changed compared to the prior chest x-ray from earlier the same day. Problems(with codes): (1) Shortness of breath (2) Opacities of both lungs present on chest x-ray (3) GI bleed (4) Pleural effusion, left (5) Right clavicle fracture (6) Acute metabolic encephalopathy (7) Atypical chest pain Plan/Recommendation Assessment plan Acute GI bleed unclear source at this time Keep this patient NPO NG tube to low intermittent suction IV fluid hydration Start him on IV Protonix drip at 8 milligrams/hour Check stat H and H and transfuse if hemoglobin is below eight Monitor H and H every [address] scan abdomen pelvis with IV contrast Patient may be started on IV pressors If the patient continues to be symptomatic or doing poorly then we will consider intubation and stabilization prior to any endoscopic evaluation I will follow up patient with you Plan discussed with: Patient, Other (Nurse and Dr. Brown) HEAVEN GLASGOW MD Sep 05, 2024 18:57
[2024-09-05 19:05] LABS: Hematocrit 29.6 % (41.0-53.0); Hemoglobin 9.6 g/dL (13.5-17.5); Mean Corpuscular Hemoglobin 29.2 pg (28.0-32.0); Mean Corpuscular Hgb Conc. 32.5 g/dL (32.0-36.0); Mean Corpuscular Volume 89.7 fL (80.0-100.0); Platelet Count (auto) 441 10^3/uL (140-450); Red Cell Distribution Width 12.7 % (11.8-14.3); White Blood Cell 27.8 10^3/uL (4.4-10.8)
[2024-09-05 19:16] LABS: Basophils % (manual) 0 (0.0-2.0); Blast Cells 0; Eosinophils % (manual) 0 (0-7); Metamyelocytes % 0; Myelocytes % 0; Promyelocytes % 0; Reactive Lymphocytes 0
[2024-09-05] MEDS: MIDAZOLAM DRIP 50 mg/50mL 0 ML IV ONE (19:30)
[2024-09-05 19:45] LABS: Lactic Acid w/Reflex 6.3 mmol/L (0.4-2.0)
[2024-09-05 20:14] LABS: Band Neutrophils % (manual) 7; Lymphocytes % (manual) 9 (10.0-50.0); Monocytes % (manual) 2 (0-12)
[2024-09-05 20:15] LABS: Platelet Estimate Adequate
[2024-09-05] MEDS: ACETAMINOPHEN 650 MG RECT SUPP PR ONE (20:40)
[2024-09-05] MEDS ORDERED: ACETAMINOPHEN 650 MG RECT SUPP PR PRN (20:45)
[2024-09-05] MEDS ORDERED: ACETAMINOPHEN IV 1000 MG/100ML (10MG/ML) IV PRN (21:45)
[2024-09-05] MEDS ORDERED: VANCOMYCIN 1.25GM/250ML 250 ML IV SCH (22:00)
[2024-09-05] MEDS: NOREPINEPHRINE 8 MG/250ML KIT 250 ML IV SCH (22:00)
--- NOTE | 2024-09-05 23:02 | DVHPN2 ---
Progress Note - Dictate Date Seen: Sep 05, 2024 Medical Necessity Reason Pt with a Central, PICC or Fol: Yes The following are medically ne: Kim Catheter Reason for kim catheter: Strict I&O Subjective Patient seen and examined at bedside. Remains on supplemental oxygen Overnight events reviewed. vital signs Vital Sign Date Time Temp Pulse Resp B/P (MAP) Pulse Ox O2 Delivery O2 Flow Rate FiO2 09/05/24 20:00 141 09/05/24 19:18 89/51 09/05/24 18:24 100.0 47 80 100.0 09/05/24 08:14 Nasal Cannula* 2 28 Total Intake and Output 09/04/24 09/04/24 09/05/24 15:00 23:00 07:00 Intake Total 540 ml Output Total 975 ml Balance -435 ml medications Current Medications Medications Dose Ordered Sig/Imtiaz Route Start Time Stop Time Status Last Admin Dose Admin Nitroglycerin 0.4 mg Q5MINP PRN SL 09/01/24 14:15 Morphine Sulfate 2 mg Q30M PRN IV 09/01/24 14:15 Diagnostic Test (Pha) 1 strip ACHS 09/01/24 17:00 09/05/24 11:26 1 STRIP Insulin Human Regular ACHS SC 09/01/24 17:00 09/05/24 11:56 10 UNITS Dextrose 50 ml UD PRN IV 09/01/24 14:15 Atorvastatin Calcium 20 mg HS PO 09/01/24 22:00 09/04/24 21:40 20 MG Metoprolol Tartrate 1.25 mg Q6HPRN PRN IV 09/01/24 14:15 Metoprolol Tartrate 12.5 mg BID PO 09/01/24 22:00 09/05/24 10:43 12.5 MG Ceftriaxone Sodium 50 ml @ 100 mls/hr DAILY@09 IV 09/02/24 09:00 09/05/24 08:44 100 MLS/HR Vancomycin HCl 0 ml @ 0 mls/hr UD IV 09/01/24 14:15 Furosemide 40 mg DAILY IV 09/02/24 10:00 09/05/24 10:44 40 MG [place] Carbonate 300 mg BID PO 09/03/24 22:00 09/05/24 10:42 300 MG Risperidone 0.5 mg HS PO 09/04/24 22:00 09/04/24 21:41 0.5 MG Vancomycin HCl 250 ml @ 200 mls/hr Q12H IV 09/05/24 22:00 Pantoprazole Sodium 50 ml @ 10 mls/hr Q5H IV 09/05/24 18:00 09/05/24 18:13 10 MLS/HR Linezolid 300 ml @ 150 mls/hr Q12HR IV 09/05/24 22:00 UNV Acetaminophen 1,000 mg Q12H PRN IV 09/05/24 21:45 Norepinephrine Bitartrate 250 ml @ 3.75 mls/hr Q24H IV 09/05/24 22:00 objective Gen.: Patient lying in bed in no apparent distress. On supplemental oxygen. Head: Normocephalic, atraumatic. Eyes: EOMI/PERRLA. Ears: Normal hearing. Normal anatomy. Neck/trachea: Trachea midline, supple. Nose: Normal external anatomy. Mouth: Moist mucous membranes. Chest: Decreased air entry bilaterally. No wheezing or rhonchi. Cardiovascular: Positive S1, positive S2. Regular rate and rhythm. Abdomen: Positive bowel sounds in all 4 quadrants. Soft, non-tender, non- distended. : Deferred. Rectal: Deferred. Skin: Warm, dry. Intact. Extremities: 2+ radial pulses bilaterally. No lower extremity edema. Neuro: Awake, alert, oriented x3. No gross motor or sensory deficits. Cranial nerves II through XII intact. Gait not assessed. laboratory and microbiology Laboratory Tests 09/05/24 18:26 09/05/24 05:56 Test 09/05/24 05:56 Range/Units Serum Glucose 215 H 74-106 mg/dL Assessment/Plan Impression: Acute hypoxic respiratory failure Dependence on supplemental oxygen Massive left pleural effusion Atelectasis Coronary artery disease s/p PTCA Acute metabolic encephalopathy Right clavicle fracture Nicotine dependence Events: Remains on supplemental oxygen, 2 LPM NC Taper O2 as tolerated Head of bed elevation Aspiration precautions On pressors for hemodynamic support Levophed 12 mcg/min Titrate to keep mean arterial pressure greater than 65 mmHg. Elevated blood pressure - antihypertensive/monitor Patient w/ bloody bowel movements Monitor hemoglobin 1 unit PRBC ordered Complete antibiotic course Incentive spirometry Blood cultures show no growth after 72 hours Pleural fluid cultures show no growth CXR demonstrates left chest tube in place. Continue to monitor chest tube output No air leak Diurese as tolerated w/ Lasix Monitor renal function. Monitor electrolytes. Supplement as necessary. Accu-Cheks, ISS. Monitor hemodynamics closely. Labs and imaging reviewed. Rest of plan as noted below. Plan: Supplemental oxygen Titrate to keep O2 sats above 92%. S/p placement of left Mark chest tube on 09/02/24 - chest x-rays confirmed placement. See separate procedure note for details of procedure. Continue antibiotics Incentive spirometry Monitor hemoglobin Smoking cessation discussed for greater than 10 minutes Monitor renal function. Monitor electrolytes. Supplement as necessary. Monitor ins and outs. DVT prophylaxis. Prognosis: Poor given patient's multiple co-morbidities. Condition: Critical Rest of plan per hospitalist and other consultants. A total of 35 minutes of critical care time was spent reviewing the patient record, examining the patient, making a diagnostic and therapeutic plan, discussing this plan with the medical personnel, following up on diagnostic studies and following the patient for clinical stability excluding any and all procedures. At least 50% of this time was spent in direct, [id number] contact. Thank you Dr. Wells for allowing me to participate in this patient's care. Further recommendations will depend on the patient's clinical course. Please do not hesitate to contact me if you have any questions or concerns. This medical document was created using an electronic medical record system with [employer] dictation system. Although these documentations are being carefully reviewed, there may still be some phonetic and typographical changes. The errors are purely typographical, due to imperfection on the software program, and do not reflect any compromise in the patient's medical care. Plan discussed with: Other (EDMUND Nickerson) Critical Care Time(min): 35 HAYLEE BULLOCK MD Sep 05, 2024 23:02
[2024-09-05] MEDS: SUCCINYLCHOLINE CHLORIDE 20 MG/ML 10ML VIAL IV ONE (23:49)
[2024-09-06] VITALS (97 sets, daily range): BP systolic 62–158; BP diastolic 13–97; PULSE 108–138; RESP 8–31; TEMP 97.9–100.8; O2SAT 94–100
[2024-09-06] MEDS: MIDAZOLAM DRIP 50 mg/50mL 50 ML IV ONE
--- NOTE | 2024-09-06 00:03 | DVH ---
CHEST RADIOGRAPH Indication: ng insertion Technique: Single frontal view of the chest was obtained Comparison: XY CHEST XRAY 1 VIEW on DOS: 09/05/24, XY CHEST PORTABLE on DOS: 09/05/24, XY CHEST PORTABL E on DOS: 09/04/24 FINDINGS: there is apparent cardiomegaly interstitial edema involving the left lung. There is a pigtail cathet er projecting over left upper quadrant of the abdomen. There is a air distending the stomach otherwi se is unremarkable. There may be a nasogastric tube in the left mainstem bronchus. Impression : Cardiomegaly, interstitial disease involving the left lung and there is a pigtail catheter projecting over the fundus of the stomach. There appears to be a nasogastric tube in the left lung base EDMUND Crain was told of these findings at 1148: PM raven Medrano[ril 2024.
[2024-09-06] MEDS: MIDAZOLAM DRIP 50 mg/50mL 50 ML IV SCH (00:13)
[2024-09-06 00:14] LABS: Base Excess -6.5 mmol/L (-2.0-3.0)
[2024-09-06] MEDS: fentaNYL Drip 2500mCg/250mlNS 250 ML IV SCH (00:15)
--- NOTE | 2024-09-06 00:56 | DVH ---
CHEST RADIOGRAPH Indication: patient intubated Technique: Single frontal view of the chest was obtained COMPARISON: XY CHEST PORTABLE on DOS: 09/05/24, XY CHEST XRAY 1 VIEW on DOS: 09/05/24, XY CHEST PORTABL E on DOS: 09/05/24, XY CHEST PORTABLE on DOS: 09/04/24, XY CHEST XRAY 1 VIEW on DOS: 09/03/24 FINDINGS: Lines and Tubes: Interval insertion of ETT with its tip approximately 4.5 cm above the elizabeth. NG tub e extends below the diaphragm though its tip is not visualized on this study. Pigtail catheter again noted at the left lung base. Lungs / Pleura: Opacities again noted throughout the left lung most prominent at the left lung base a long with probable small left pleural effusion, not significantly changed compared to the prior chest x-ray from a day earlier. Stable mild subsegmental atelectasis at the right lung base. No pulmonary edema. No pneumothorax. Cardiomediastinal contours: Unremarkable IMPRESSION: ETT in satisfactory position. Opacities in the left lung, not significantly changed compared to the p rior chest x-ray from a day earlier.
[2024-09-06] MEDS: LINEZOLID 600MG/300ML 300 ML IV ONE (01:32)
[2024-09-06 01:49] LABS: Base Excess -7.8 mmol/L (-2.0-3.0)
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
[2024-09-06] MEDS: VANCOMYCIN 1.25GM/250ML 250 ML IV SCH (04:08)
[2024-09-06 04:17] LABS: Hematocrit 36.6 % (41.0-53.0); Hemoglobin 11.7 g/dL (13.5-17.5); Mean Corpuscular Hemoglobin 28.3 pg (28.0-32.0); Mean Corpuscular Hgb Conc. 31.8 g/dL (32.0-36.0); Mean Corpuscular Volume 88.9 fL (80.0-100.0); Platelet Count (auto) 460 10^3/uL (140-450); Red Blood Cells 4.12 10^6/uL (4.5-5.90); Red Cell Distribution Width 13.2 % (11.8-14.3)
[2024-09-06 04:34] LABS: Alkaline Phosphatase 86 U/L (46-116); Chloride 102 mmol/L (98-107); Potassium 4.4 mmol/L (3.5-5.1)
[2024-09-06 04:35] LABS: Anion Gap 9 (5-15); BUN/Creatinine Ratio 53.5 (10.0-20.0); Bilirubin, Total 0.4 mg/dL (0.2-1.0)
[2024-09-06 04:37] LABS: Blood Urea Nitrogen 77 mg/dL (9-23); Carbon Dioxide 20 mmol/L (20-31); Sodium 131 mmol/L (136-145)
[2024-09-06 04:38] LABS: Alanine Aminotransferase 184 U/L (7-40); Albumin 2.6 g/dL (3.2-4.8); Aspartate Aminotransferase 99 U/L (13-40); Calcium 7.6 mg/dL (8.7-10.4)
[2024-09-06 04:39] LABS: Glucose 432 mg/dL (74-106); White Blood Cell 38.9 10^3/uL (4.4-10.8)
[2024-09-06 04:40] LABS: Basophils % (manual) 0 (0.0-2.0); Blast Cells 0; Eosinophils % (manual) 0 (0-7); Metamyelocytes % 0; Myelocytes % 0; Promyelocytes % 0; Reactive Lymphocytes 0
[2024-09-06] MEDS: ACCU-CHEK COMFORT CURVE STRIP VI SCH ×2 (06:06→18:05)
[2024-09-06] MEDS: InsuLIN REG 1unit/0.01ml Soln (100units/ml) SC SCH ×2 (06:07→18:09)
--- NOTE | 2024-09-06 06:36 | DVH ---
CHEST RADIOGRAPH Indication: chest tube Technique: Single frontal view of the chest was obtained COMPARISON: XY CHEST PORTABLE on DOS: 09/06/24, XY CHEST PORTABLE on DOS: 09/05/24, XY CHEST XRAY 1 VIE W on DOS: 09/05/24, XY CHEST PORTABLE on DOS: 09/05/24, XY CHEST PORTABLE on DOS: 09/04/24 FINDINGS: Lines and Tubes: Endotracheal tube and enteric catheter in satisfactory position. Lungs: Multifocal left lung airspace disease. Pleura: No effusion. No pneumothorax. Cardiomediastinal contours: Unremarkable Bones: Unremarkable IMPRESSION: Lines and tubes in satisfactory position. No significant interval change.
[2024-09-06 07:46] LABS: Base Excess -7.8 mmol/L (-2.0-3.0)
[2024-09-06 08:20] LABS: Band Neutrophils % (manual) 10; Lymphocytes % (manual) 5 (10.0-50.0); Monocytes % (manual) 6 (0-12); Platelet Estimate Increased
[2024-09-06] MEDS: LINEZOLID 600MG/300ML 300 ML IV SCH (10:41)
[2024-09-06 11:19] LABS: INR 1.11 (0.9-1.15); Partial Thromboplastin Time 28.3 SEC (24.5-34.5); Prothrombin Time 11.6 sec (9.3-11.8)
[2024-09-06] MEDS: PHENYLEPHRINE IV 250 ML IV SCH (11:59)
--- NOTE | 2024-09-06 12:13 | DVHPN2 ---
Progress Note - Dictate Date Seen: Sep 06, 2024 Medical Necessity Reason Pt with a Central, PICC or Fol: Yes The following are medically ne: Kim Catheter Reason for kim catheter: Strict I&O vital signs Vital Sign Date Time Temp Pulse Resp B/P (MAP) Pulse Ox O2 Delivery O2 Flow Rate FiO2 09/06/24 12:06 102/71 09/06/24 10:19 134 21 97 50 09/06/24 04:00 Mechanical Ventilator+ 09/06/24 04:00 98.6 98.6 09/05/24 20:00 3 Total Intake and Output 09/05/24 09/05/24 09/06/24 15:00 23:00 07:00 Intake Total 50 ml 62.5 ml 1055.00 ml Output Total 1745 ml Balance 50 ml 62.5 ml -690.00 ml medications Current Medications Medications Dose Ordered Sig/Imtiaz Route Start Time Stop Time Status Last Admin Dose Admin Nitroglycerin 0.4 mg Q5MINP PRN SL 09/01/24 14:15 Morphine Sulfate 2 mg Q30M PRN IV 09/01/24 14:15 Dextrose 50 ml UD PRN IV 09/01/24 14:15 Atorvastatin Calcium 20 mg HS PO 09/01/24 22:00 09/04/24 21:40 20 MG Metoprolol Tartrate 1.25 mg Q6HPRN PRN IV 09/01/24 14:15 Metoprolol Tartrate 12.5 mg BID PO 09/01/24 22:00 09/05/24 10:43 12.5 MG Ceftriaxone Sodium 50 ml @ 100 mls/hr DAILY@09 IV 09/02/24 09:00 09/06/24 09:03 100 MLS/HR Furosemide 40 mg DAILY IV 09/02/24 10:00 09/05/24 10:44 40 MG [place] Carbonate 300 mg BID PO 09/03/24 22:00 09/05/24 10:42 300 MG Risperidone 0.5 mg HS PO 09/04/24 22:00 09/04/24 21:41 0.5 MG Pantoprazole Sodium 50 ml @ 10 mls/hr Q5H IV 09/05/24 18:00 09/06/24 06:49 10 MLS/HR Linezolid 300 ml @ 150 mls/hr Q12HR IV 09/05/24 22:00 4/12/25 10:41 150 MLS/HR Acetaminophen 1,000 mg Q12H PRN IV 09/05/24 21:45 Norepinephrine Bitartrate 250 ml @ 3.75 mls/hr Q24H IV 09/05/24 22:00 09/06/24 10:48 56.25 MLS/HR Midazolam HCl 50 ml @ 1 mls/hr Q24H IV 09/06/24 00:15 09/06/24 12:06 15 MLS/HR Fentanyl Citrate 250 ml @ 2.5 mls/hr Q24H IV 09/06/24 00:15 09/06/24 00:15 2.5 MLS/HR Diagnostic Test (Pha) 1 strip Q6HR 09/06/24 06:00 09/06/24 12:02 1 STRIP Insulin Human Regular Q6HR SC 09/06/24 06:00 09/06/24 12:04 8 UNITS Phenylephrine HCl 250 ml @ 30 mls/hr Q8H20M IV 09/06/24 09:15 09/06/24 11:59 30 MLS/HR laboratory and microbiology Laboratory Tests 09/06/24 03:55 Test 09/06/24 03:55 Range/Units Serum Glucose 432 #*H 74-106 mg/dL Assessment/Plan Impression Acute hypoxemic respiratory failure Hemorrhagic shock Pneumonia GI bleed Patient seen and examined in ICU Events On mechanical ventilation S/p intubation PEEP 8, FiO2 55% Labs and imaging reviewed Chest x-ray shows worsening infiltrates BUN/Creatinine elevated ABG reviewed Management Vent support Titrate to maintain sats 90% or above Sedation for vent synchrony Continue antibiotics F/u cultures Bronchodilators Monitor renal function Monitor electrolytes Supplement as needed Pressors as needed for hemodynamic support To maintain a mean arterial pressure of 65 mmHg Monitor blood count DVT prophylaxis Critical care time 35 minutes Dietary Evaluation Review Comments: 1) TPN to meet at least 75% estimated needs 2) Advance diet as medically feasible 3) Continue current plan of care Expected Outcomes/Goals: To meet >75% estimated needs FU 2-3 days Plan discussed with: Other (Rn) CLARK FIGUEROA MD Sep 06, 2024 12:13
--- NOTE | 2024-09-06 12:20 | RESUS ---
CODE ASSIST ASSESSSMENT Initial Information Code Assist Date: Sep 05, 2024 Code Assist Time: 18:38 Location of Arrest: [facility] Room [facility] 287A Provider Name DR GOMEZ CAME AND WALKED OUT OF RAPID RESPONSE STATED HE IS NOT TO BE INVOLVED WITH DR SMITH'S PATIENTS. DR SANDOVAL CALLED AND CAME TO BEDSIDE. Time Notified: 18:41 (DR SANDOVAL) Time PMD returned call: 18:41 Crash Cart Opened and Supplies: No Situation Staff concerned/worried, speci: Non-responsive, Change LOC, SBP <90 or 10 from baseli Situation comment: THIS RN WAS CALLED TO ASSESS PATIENT AROUND 1745 BY PRIMARY RN. SBP 70'S. PER NA REPORT PATIENT WAS HAVING MULTIPLE LARGE BM'S THAT WERE BLACK IN COLOR AND WERE NOTIFYING PRIMARY RN THROUGHOUT THE DAY. Background Background: SEE EMR FOR CARE/TREATMENT PROVIDED DURING HOSPITAL STAY. LEFT LUNG PLEURAL EFFUSION WITH CHEST TUBE VIA PIG TAIL CATHETER INTACT. SITTER PATIENT. BROUGHT IN TO ER THIS VISIT FOR PAIN DUE TO MULTIPLE FALLS AT HOME. Assessment Temperature (Fahrenheit): 100.9 Blood Pressure Systolic: 75 Blood Pressure Diastolic: 45 Respiratory Rate: 30 O2 Sat by Pulse Oximetry: 92 Bedside Blood Glucose: 361 Assessment comment: 250ML NS BOLUS WAS GIVEN PER PROTOCOL TO INCREASE BP AND DR SMITH WAS CALLED AT 1750 FOR FURTHER ORDERS. ORDERTED TOTAL OF 500ML BOLUS, LABS, LEVOPHED IF NEEDED-SEE NOTE FOR FURTHER ORDERS. PATIENT WAS GIVEN 500 ML BOLUS THEN LEVOPHED DRIP INITIATED PER DR ORDER AND DUE TO MAP BELOW 60 WITH SBP 70'S-80'S Q5MINS. DR Jamila GLASGOW CALLED PER DR SMITH ORDER AND WAS AT BEDSIDE GAVE ORDERS-SEE NOTES. PATIENT THEN BECAME UNRESPONSIVE WITH HEAD BACK WITH EYES WIDE OPEN STARING TO THE LEFT AND AGONAL BREATHING. RAPID RESPONSE THEN CALLED AT THAT TIME AND INITIATED BAGGING. Recommendations/Interventions Medications and Responses : ADULT Medications Given: Procedures: Accu check, ABG, CXR Portable, CBC, EKG, Cardiac Monitoring, Inititate ACLS Protocol, Bag Mask, O2 Mask/NC Other Interventions INITIATED O2 VIA BAG MASK AND CALLED DR FOR INTUBATION. UPON DR SANDOVAL ARRIVAL AT 1845 PATIENT WOKE UP, ALERT/ORIENTED TO PERSON. DECISION WAS MADE NOT TO INTUBATE. Outcome Outcome: Transfer to ICU (LEVOPHED DRIP INFUSING) Follow up Report Follow up Report THIS RN TOOK OVER PATIENT CARE DUE TO NO ICU RESOURCE AVAILABLE. DR SMITH WAS CALLED AND NOTIFIED OF RAPID RESPONSE AND MORE ORDERS PLACED-SEE ORDERS. THIS RN AND ARAMIS RN GAVE REPORT TO ORTHOPAEDIC NURSE AT 1900 AND PLAN TO TRANSFER TO ICU 112 WITH LEVOPHED AT 8MCG/MIN AT THAT TIME. Team Members Team Members DR SANDOVAL, KEITH SWIMMING POOL SERVICEPERSON, SARATH SHAFFERTWISTER IN, ARAMIS TRISTAN RN, LATIA RN, KAYLA POSTN, MARIO RT, TASH NA critical care time 39 mins Date of Service: Sep 06, 2024 Billing Provider: NILS SANDOVAL MD Common Visit Codes: [id number] CARE 30-74 MIN Sarath Virk Sep 06, 2024 12:20 NILS SANDOVAL MD Sep 07, 2024 09:38
[2024-09-06] MEDS ORDERED: DEXTROSE (50%) 50ML SYRG IV PRN (12:30)
--- NOTE | 2024-09-06 13:15 | DVHNC2 ---
Procedure - Procedure- Left IJ central line placement ultrasound guided Indication- Intravenous access Procedure in detail Consent was obtained and timeout performed per protocol. The patient was placed in the supine position and the left IJ vein was localized using ultrasound SonoSite. ChloraPrep was used to clean the operative field, sterile drapes used to cover the area and local analgesia Lidocaine 1% 3 cc. Triple-lumen catheter was inserted over the wire with direct ultrasound guidance in the left IJ vein. The wire was removed, catheter flushed with normal saline and secured with 2 sutures. Sterile dressing applied. No complications. CLARK FIGUEROA MD Sep 06, 2024 13:14
--- NOTE | 2024-09-06 13:15 | DVH ---
XY CHEST PORTABLE, HISTORY: CENTRAL LINE PLACEMENT CONFIRMATION COMPARISON: XY CHEST PORTABLE on DOS: 09/06/24, XY CHEST PORTABLE on DOS: 09/06/24, XY CHEST PORTABLE o n DOS: 09/05/24 XY CHEST PORTABLE on DOS: 09/06/24, XY CHEST PORTABLE on DOS: 09/06/24, XY CHEST PORTABLE on DOS: TECHNICAL DATA: 1 view of the chest was obtained. FINDINGS: Lines and tubes: Stable ET, NG. Left CVC with tip in the SVC Cardiomediastinal silhouette: Enlarged Pulmonary vasculature: Prominent Lung expansion: low Lung airspace: Left basilar airspace opacity Lung interstitium: normal Pleura: Left effusion. Pneumothorax: no Bones: Unremarkable Other: no IMPRESSION: Similar lung aeration bilaterally. Lines and tubes, as above. Left CVC with tip in the SVC.
--- NOTE | 2024-09-06 13:16 | DVHNC2 ---
Procedure - Procedure- Left axillary arterial line catheter placement ultrasound guided Indication- Hemodynamic monitoring Procedure in detail Consent was obtained and timeout performed per protocol. The patient was placed in the supine position and the left axillary artery was localized using ultrasound SonoSite. ChloraPrep was used to clean the operative field, sterile drapes used to cover the area and local analgesia Lidocaine. The catheter was advanced over the wire with direct ultrasound guidance in the left axillary artery. The wire was removed, catheter flushed and attached to the transition device showing correct arterial waveform. Catheter was secured with 2 sutures and sterile dressing applied. No complications. CLARK FIGUEROA MD Sep 06, 2024 13:15
--- NOTE | 2024-09-06 13:57 | DVHPN2 ---
Subjective Overnight events noted. Yesterday patient was found to be altered with sitting in the pool of blood. It was a big large black bowel movement. Patient was blood thinner was stopped which was aspirin only. Patient was started on IV Protonix drip and currently on IV Levophed has been as other vasopressors. Patient became unresponsive requiring intubation during the same time. Reviewed: Care Plan Changes from previous H/P or p: Changes Objective Vitals Vital Signs Date Time Temp Pulse Resp B/P (MAP) Pulse Ox O2 Delivery O2 Flow Rate FiO2 09/06/24 12:20 213.6 30 92 09/06/24 12:06 102/71 09/06/24 10:19 134 50 09/06/24 04:00 Mechanical Ventilator+ 09/05/24 20:00 3 Intake/Output Intake and Output 09/06/24 07:00 Intake Total 1239.25 ml Output Total 1745 ml Balance -505.75 ml Intake Oral 0 ml IV Total 939.25 ml Blood Product 300 ml Output Urine Total 1650 ml Gastric Drainage Total 95 ml Exam HEENT pupils are reactive Neck is supple CV is S1-S2 regular rate and rhythm Respiratory diminished breath sounds bases GI positive bowel sound Extremity no edema [employer]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 Medications Current Medications Medications Dose Ordered Sig/Imtiaz Route Start Time Stop Time Status Last Admin Dose Admin Nitroglycerin 0.4 mg Q5MINP PRN SL 09/01/24 14:15 Morphine Sulfate 2 mg Q30M PRN IV 09/01/24 14:15 Atorvastatin Calcium 20 mg HS PO 09/01/24 22:00 09/04/24 21:40 20 MG Metoprolol Tartrate 1.25 mg Q6HPRN PRN IV 09/01/24 14:15 Metoprolol Tartrate 12.5 mg BID PO 09/01/24 22:00 09/05/24 10:43 12.5 MG Ceftriaxone Sodium 50 ml @ 100 mls/hr DAILY@09 IV 09/02/24 09:00 09/06/24 09:03 100 MLS/HR Furosemide 40 mg DAILY IV 09/02/24 10:00 09/05/24 10:44 40 MG [place] Carbonate 300 mg BID PO 09/03/24 22:00 09/05/24 10:42 300 MG Risperidone 0.5 mg HS PO 09/04/24 22:00 09/04/24 21:41 0.5 MG Pantoprazole Sodium 50 ml @ 10 mls/hr Q5H IV 09/05/24 18:00 09/06/24 13:12 10 MLS/HR Linezolid 300 ml @ 150 mls/hr Q12HR IV 09/05/24 22:00 09/06/24 10:41 150 MLS/HR Acetaminophen 1,000 mg Q12H PRN IV 09/05/24 21:45 Norepinephrine Bitartrate 250 ml @ 3.75 mls/hr Q24H IV 09/05/24 22:00 09/06/24 10:48 56.25 MLS/HR Midazolam HCl 50 ml @ 1 mls/hr Q24H IV 09/06/24 00:15 09/06/24 12:06 15 MLS/HR Fentanyl Citrate 250 ml @ 2.5 mls/hr Q24H IV 09/06/24 00:15 09/06/24 00:15 2.5 MLS/HR Phenylephrine HCl 250 ml @ 30 mls/hr Q8H20M IV 09/06/24 09:15 09/06/24 11:59 30 MLS/HR Vasopressin 20 units/Sodium Chloride 100 ml @ 9 mls/hr Q11H7M IV 09/06/24 12:30 UNV Diagnostic Test (Pha) 1 strip Q6HR 09/06/24 18:00 UNV Insulin Human Regular Q6HR SC 09/06/24 18:00 UNV Dextrose 50 ml UD PRN IV 09/06/24 12:30 UNV Laboratory Results Laboratory Tests 09/06/24 03:55 Chemistry Test 09/06/24 03:55 Albumin 2.6 g/dL (3.2-4.8) L Calcium Level 7.6 mg/dL (8.7-10.4) L Total Protein 5.0 g/dL (5.7-8.2) L Coagulation Test 09/06/24 10:30 Prothrombin Time 11.6 sec (9.3-11.8) Prothrombin Time INR 1.11 (0.9-1.15) Activated Partial Thromboplast Time 28.3 SEC (24.5-34.5) LFT Test 09/06/24 03:55 Alanine Aminotransferase (ALT) 184 U/L (7-40) H Alkaline Phosphatase 86 U/L (46-116) Aspartate Amino Transferase (AST) 99 U/L (13-40) H Total Bilirubin 0.4 mg/dL (0.2-1.0) Blood Gas Results Test 09/05/24 18:09 09/05/24 23:47 09/06/24 01:43 09/06/24 07:40 Arterial Blood pH 7.498 (7.350-7.450) 7.474 (7.350-7.450) 7.295 (7.350-7.450) 7.251 (7.350-7.450) FiO2 % 32.0 36.0 100.0 55.0 Microbiology Microbiology Date/Time Source Procedure Growth Status 09/02/24 10:49 Pleural Fluid Gram Stain - Final Resulted 09/02/24 10:49 Pleural Fluid Body Fluid Culture - Preliminary Resulted 09/01/24 11:49 Blood Blood Culture - Final NO GROWTH AFTER 5 DAYS OF INCUBATION. Complete Assessment/Plan Assessment/Plan 69-year-old male with a known history of CAD status post PCI, hypertension, d yslipidemia who initially presented to the hospital with multiple falls found to have , found to have pleural effusion status post pigtail catheter placement. Overnight events noted. 1. Acute hypoxic respiratory failure requiring intubation on mechanical ventilation 2. Hemorrhagic shock requiring multiple vasopressors 3. Acute GI bleed with melanotic stools, currently on Protonix drip, GI consultation for evaluation of EGD 4. Left-sided massive pleural effusion status post pigtail catheter placement 5. Acute metabolic encephalopathy with underlying psychiatric disorder 6. Mood disorder currently on lithium 7. Right clavicle fracture status post sling support, conservative management as per orthopedics 8. CAD status post LAD stents -continue IV vasopressors, Protonix drip, GI consultation -continue vent management per Pulmonary, -monitor H&H, left-sided pigtail catheter management -patient was remains critical prognosis remain guarded. Plan discussed with: Other My Orders Orders - BRYSON SMITH MD Procedure Category Date Status Time Chest Xray 1 View XY 09/05/24 Resulted 17:45 Abg W/ Co-Ox RT 09/05/24 Logged 17:45 Pantoprazole PHA 09/05/24 In Process 40mg/50ml Ns Ae 18:00 Communication Order ORDERS 09/05/24 Transmitted 18:14 Norepinephrine 8 PHA 09/05/24 In Process Mg/250ml Kit 22:00 Chest Portable XY 09/05/24 Resulted 22:[address] 09/07/24 Logged 09:00 Phenylephrine Iv PHA 09/06/24 In Process (Phenylephrine/Ns) 09:15 Sodium Chl 0.9% PHA 09/06/24 Logged (So... W/Vasopressin 12:30 Glucose Blood PHA 09/06/24 Logged (Accu-Chek Comfort 18:00 Insulin R (Human) PHA 09/06/24 Logged (Insulin R) 18:00 Dextrose 50% Syringe PHA 09/06/24 Logged 12:30 Date of Service: Sep 06, 2024 Billing Provider: BRYSON SMITH MD Common Visit Codes: NOT BILLABLE BRYSON SMITH MD Sep 06, 2024 13:57
[2024-09-06] MEDS ORDERED: VANCOMYCIN PER PHARMACY 0 MG IV STA (14:38)
[2024-09-06] MEDS: GENTAMICIN PER PHARMACY 0 ML IV STA (14:38)
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
[2024-09-06] MEDS: VASOPRESSIN 20 UNITS in SODIUM CHL 0.9% 99 ML IV SCH ×2 (15:00→15:40)
[2024-09-06] MEDS ORDERED: D5W 5% IV ONE (15:45)
[2024-09-06] MEDS ORDERED: GENTAMICIN SULFATE IV ONE (15:45)
[2024-09-06] MEDS ORDERED: VANCOMYCIN PER PHARMACY 0 MG IV SCH (16:00)
[2024-09-06 16:49] LABS: Hematocrit 43.7 % (41.0-53.0); Hemoglobin 12.9 g/dL (13.5-17.5); Mean Corpuscular Hemoglobin 28.8 pg (28.0-32.0); Mean Corpuscular Hgb Conc. 29.6 g/dL (32.0-36.0); Platelet Count (auto) 477 10^3/uL (140-450); Red Cell Distribution Width 14.3 % (11.8-14.3)
[2024-09-06] MEDS: GENTAMICIN SULFATE IV ONE (16:54)
[2024-09-06] MEDS: D5W 5% IV ONE (16:54)
[2024-09-06 17:09] LABS: White Blood Cell 45.9 10^3/uL (4.4-10.8)
[2024-09-06 17:11] LABS: Basophils % (manual) 0 (0.0-2.0); Blast Cells 0; Eosinophils % (manual) 0 (0-7); Metamyelocytes % 0; Myelocytes % 0; Promyelocytes % 0
[2024-09-06 17:20] LABS: Band Neutrophils % (manual) 8; Lymphocytes % (manual) 6 (10.0-50.0); Monocytes % (manual) 11 (0-12)
[2024-09-06 17:21] LABS: Anisocytosis Slight; Platelet Estimate Increased; Reactive Lymphocytes 1
--- NOTE | 2024-09-06 17:45 | DVHPN2 ---
Progress Note - Dictate Date Seen: Sep 06, 2024 Medical Necessity Reason Pt with a Central, PICC or Fol: Yes The following are medically ne: Kim Catheter Reason for kim catheter: Strict I&O Subjective Patient was transferred to the ICU last night on 3 L nasal cannula However the patient's condition deteriorated and became unresponsive requiring intubation Patient is currently on FiO2 40% with a PEEP of eight Patient has bilateral lung opacities suspected bilateral pneumonia and sepsis He has been running hypotensive and low blood pressures requiring high dose of IV Levophed Patient only had about 95 mL of coffee-ground via the NG tube and the nurses not reporting any further melena His hemoglobin this morning was up to 12 after receiving only 1 unit PRBC His leukocytosis has however worsened and patient appears to be in septic shock Initial CT chest had shown some dilated esophagus, pulmonary nodule and multiple mediastinal lymph nodes Patient has a left-sided chest tube that initially drained a lot however now the last drainage is only about 20 mL recorded vital signs Vital Sign Date Time Temp Pulse Resp B/P (MAP) Pulse Ox O2 Delivery O2 Flow Rate FiO2 09/06/24 17:00 127 16 114/15 (48) 95 100/66 (77) 09/06/24 16:00 40 09/06/24 16:00 100.2 100.2 09/06/24 08:00 Mechanical Ventilator+ 09/05/24 20:00 3 Total Intake and Output 09/05/24 09/05/24 09/06/24 15:00 23:00 07:00 Intake Total 50 ml 62.5 ml 1126.75 ml Output Total 1745 ml Balance 50 ml 62.5 ml -618.25 ml medications Current Medications Medications Dose Ordered Sig/Imtiaz Route Start Time Stop Time Status Last Admin Dose Admin Nitroglycerin 0.4 mg Q5MINP PRN SL 09/01/24 14:15 Morphine Sulfate 2 mg Q30M PRN IV 09/01/24 14:15 Atorvastatin Calcium 20 mg HS PO 09/01/24 22:00 09/04/24 21:40 20 MG Metoprolol Tartrate 1.25 mg Q6HPRN PRN IV 09/01/24 14:15 Furosemide 40 mg DAILY IV 09/02/24 10:00 09/05/24 10:44 40 MG [place] Carbonate 300 mg BID PO 09/03/24 22:00 09/05/24 10:42 300 MG Risperidone 0.5 mg HS PO 09/04/24 22:00 09/04/24 21:41 0.5 MG Pantoprazole Sodium 50 ml @ 10 mls/hr Q5H IV 09/05/24 18:00 09/06/24 13:12 10 MLS/HR Acetaminophen 1,000 mg Q12H PRN IV 09/05/24 21:45 Norepinephrine Bitartrate 250 ml @ 3.75 mls/hr Q24H IV 09/05/24 22:00 09/06/24 10:48 56.25 MLS/HR Midazolam HCl 50 ml @ 1 mls/hr Q24H IV 09/06/24 00:15 09/06/24 12:06 15 MLS/HR Fentanyl Citrate 250 ml @ 2.5 mls/hr Q24H IV 09/06/24 00:15 09/06/24 14:19 35 MLS/HR Phenylephrine HCl 250 ml @ 30 mls/hr Q8H20M IV 09/06/24 09:15 09/06/24 16:14 123.75 MLS/HR Vasopressin 20 units/Sodium Chloride 100 ml @ 9 mls/hr Q11H7M IV 09/06/24 12:30 09/06/24 15:40 9 MLS/HR Diagnostic Test (Pha) 1 strip Q6HR 09/06/24 18:00 Insulin Human Regular Q6HR SC 09/06/24 18:00 Dextrose 50 ml UD PRN IV 09/06/24 12:30 Vancomycin HCl 0 ml @ 0 mls/hr UD STAT IV 09/06/24 14:38 09/06/24 14:39 UNV Meropenem 50 ml @ 17 mls/hr Q8HR IV 09/06/24 22:00 Vasopressin 20 units/Sodium Chloride 100 ml @ 9 mls/hr Q11H7M IV 09/06/24 15:00 Vancomycin HCl 0 ml @ 0 mls/hr UD IV 09/06/24 16:00 objective HEENT pupils are reactive Neck is supple CV is S1-S2 regular rate and rhythm Respiratory diminished breath sounds bases GI positive bowel sound Extremity no edema 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 laboratory and microbiology Laboratory Tests 09/06/24 16:35 09/06/24 03:55 Test 09/06/24 03:55 Range/Units Serum Glucose 432 #*H 74-106 mg/dL Problems(with codes): (1) Septic shock (2) Leukocytosis (3) Opacities of both lungs present on chest x-ray (4) GI bleed (5) Shortness of breath (6) Atypical chest pain (7) Acute metabolic encephalopathy Prognosis Assessment Plan Patient is currently clinically too unstable to proceed with an endoscopic examination He also appears to not have any further significant GI bleeding and is H&H is stable Continue IV Protonix drip ; monitor labs and I follow up patient with you CT of the abdomen pelvis is advised rule out colitis or ischemia However patient is too unstable at this time to proceed with CT head or CT abdomen Continue to monitor labs Patient is being seen by ID consult and his antibiotic coverage has been broadened Patient is critically ill; prognosis remains guarded and family has been notified Dietary Evaluation Review Comments: 1) TPN to meet at least 75% estimated needs 2) Advance diet as medically feasible 3) Continue current plan of care Expected Outcomes/Goals: To meet >75% estimated needs FU 2-3 days Plan discussed with: Other (ICU Nurse) HEAVEN GLASGOW MD Sep 06, 2024 17:45
[2024-09-06] MEDS: MICAFUNGIN SODIUM 100 MG in SODIUM CHL 0.9% 100 ML IV ONE (18:00)
[2024-09-06] MEDS: SODIUM CHLORIDE 0.9% 1,000 ML IV SCH (19:15)
[2024-09-06] MEDS: VANCOMYCIN 1.75GM/350ML 350 ML IV ONE (19:23)
[2024-09-06] MEDS: MEROPENEM 1GM IVPB 50 ML IV SCH (22:12)
[2024-09-07] VITALS (107 sets, daily range): BP systolic 66–171; BP diastolic 16–75; PULSE 102–128; RESP 13–24; TEMP 97.7–98.6; O2SAT 97–100
[2024-09-07 03:54] LABS: Hemoglobin 9.4 g/dL (13.5-17.5)
--- NOTE | 2024-09-07 03:58 | DVHNC2 ---
Intubation Indication: Respiratory Insufficiency, Altered Mental Status, Airway Protection Prep: Preoxygenation Pretreated with: Analgesia Medicated with: Succinylcholine Intubation Approach: Orotracheal Informed consent obtained: No Risks/benefits/alt described: No UTO Consent emergert intubation Date of Service: Sep 06, 2024 Billing Provider: TARA DE JESUS Common Visit Codes: PROCEDURE ONLY Procedure Codes: [id number] TARA DE JESUS Sep 07, 2024 03:58
[2024-09-07 03:59] LABS: Mean Corpuscular Hemoglobin 29.4 pg (28.0-32.0); Mean Corpuscular Hgb Conc. 32.6 g/dL (32.0-36.0); Mean Corpuscular Volume 90.4 fL (80.0-100.0); Platelet Count (auto) 509 10^3/uL (140-450); Red Blood Cells 3.21 10^6/uL (4.5-5.90); Red Cell Distribution Width 13.4 % (11.8-14.3)
[2024-09-07 04:47] LABS: Basophils % (manual) 0 (0.0-2.0); Blast Cells 0; Eosinophils % (manual) 0 (0-7); Metamyelocytes % 0; Myelocytes % 0; Promyelocytes % 0; Reactive Lymphocytes 0; White Blood Cell 45.6 10^3/uL (4.4-10.8)
--- NOTE | 2024-09-07 06:50 | DVH ---
CHEST RADIOGRAPH Indication: chest tube Technique: Single frontal view of the chest was obtained COMPARISON: XY CHEST PORTABLE on DOS: 09/06/24, XY CHEST PORTABLE on DOS: 09/06/24, XY CHEST PORTABLE o n DOS: 09/06/24, XY CHEST PORTABLE on DOS: 09/05/24, XY CHEST XRAY 1 VIEW on DOS: 09/05/24 FINDINGS: Lines and Tubes: Unchanged. Lungs: Persistent left hemithoracic pulmonary airspace disease. The right lung remains clear. Pleura: No effusion. No pneumothorax. Cardiomediastinal contours: Unremarkable Bones: Unremarkable IMPRESSION: 1. Stable appearing left pulmonary airspace disease. 2. Lines and tubes unchanged.
[2024-09-07 08:03] LABS: Base Excess -14.9 mmol/L (-2.0-3.0)
[2024-09-07 08:20] LABS: Band Neutrophils % (manual) 4; Lymphocytes % (manual) 9 (10.0-50.0); Monocytes % (manual) 8 (0-12); Platelet Estimate Increased
[2024-09-07] MEDS: MICAFUNGIN SODIUM 100 MG in SODIUM CHL 0.9% 100 ML IV SCH (09:54)
[2024-09-07 10:48] LABS: Base Excess -14.3 mmol/L (-2.0-3.0)
[2024-09-07] MEDS: PHENYLEPHRINE INJ 80 MG in SODIUM CHL 0.9% 242 ML IV SCH (12:09)
--- NOTE | 2024-09-07 12:53 | DVHPN2 ---
Progress Note - Dictate Date Seen: Sep 07, 2024 Medical Necessity Reason Pt with a Central, PICC or Fol: Yes The following are medically ne: Kim Catheter Reason for kim catheter: Strict I&O vital signs Vital Sign Date Time Temp Pulse Resp B/P (MAP) Pulse Ox O2 Delivery O2 Flow Rate FiO2 09/07/24 12:51 155/34 09/07/24 12:15 113 24 100 09/07/24 12:02 40 09/07/24 04:00 98.0 98.0 09/06/24 20:00 Mechanical Ventilator+ 09/05/24 20:00 3 Total Intake and Output 09/06/24 09/06/24 09/07/24 15:00 23:00 07:00 Intake Total 967.25 ml 2411.50 ml 2551.75 ml Output Total 725 ml 125 ml Balance 967.25 ml 1686.50 ml 2426.75 ml medications Current Medications Medications Dose Ordered Sig/Imtiaz Route Start Time Stop Time Status Last Admin Dose Admin Nitroglycerin 0.4 mg Q5MINP PRN SL 09/01/24 14:15 Morphine Sulfate 2 mg Q30M PRN IV 09/01/24 14:15 Atorvastatin Calcium 20 mg HS PO 09/01/24 22:00 09/06/24 21:39 20 MG Metoprolol Tartrate 1.25 mg Q6HPRN PRN IV 09/01/24 14:15 Furosemide 40 mg DAILY IV 09/02/24 10:00 09/05/24 10:44 40 MG [place] Carbonate 300 mg BID PO 09/03/24 22:00 09/05/24 10:42 300 MG Risperidone 0.5 mg HS PO 09/04/24 22:00 09/06/24 21:39 0.5 MG Pantoprazole Sodium 50 ml @ 10 mls/hr Q5H IV 09/05/24 18:00 09/07/24 09:54 10 MLS/HR Acetaminophen 1,000 mg Q12H PRN IV 09/05/24 21:45 Midazolam HCl 50 ml @ 1 mls/hr Q24H IV 09/06/24 00:15 09/07/24 12:51 14 MLS/HR Fentanyl Citrate 250 ml @ 2.5 mls/hr Q24H IV 09/06/24 00:15 09/07/24 08:35 25 MLS/HR Diagnostic Test (Pha) 1 strip Q6HR 09/06/24 18:00 09/07/24 12:25 1 STRIP Insulin Human Regular Q6HR SC 09/06/24 18:00 09/07/24 05:11 6 UNITS Dextrose 50 ml UD PRN IV 09/06/24 12:30 Vancomycin HCl 0 ml @ 0 mls/hr UD STAT IV 09/06/24 14:38 09/06/24 14:39 UNV Meropenem 50 ml @ 17 mls/hr Q8HR IV 09/06/24 22:00 09/07/24 05:08 17 MLS/HR Vasopressin 20 units/Sodium Chloride 100 ml @ 9 mls/hr Q11H7M IV 09/06/24 15:00 Vancomycin HCl 0 ml @ 0 mls/hr UD IV 09/06/24 16:00 Micafungin Sodium 100 mg/Sodium Chloride 100 ml @ 100 mls/hr DAILY IV 09/07/24 10:00 09/07/24 09:54 100 MLS/HR Sodium Chloride 1,000 ml @ 100 mls/hr Q10H IV 09/06/24 19:15 09/07/24 05:08 100 MLS/HR Phenylephrine HCl 80 mg/Sodium Chloride 250 ml @ 7.5 mls/hr Q24H IV 09/07/24 10:15 09/07/24 12:09 29.063 MLS/HR Norepinephrine Bitartrate 32 mg/ Sodium Chloride 250 ml @ 0.938 mls/ hr Q24H IV 09/07/24 10:15 laboratory and microbiology Laboratory Tests 09/07/24 03:35 09/06/24 03:55 Test 09/06/24 03:55 Range/Units Serum Glucose 432 #*H 74-106 mg/dL Assessment/Plan oreman rounds Impression Acute hypoxemic respiratory failure Hemorrhagic shock Pneumonia GI bleed Patient seen and examined in ICU Events On mechanical ventilation S/p intubation abg resp acidosis vent changed to PC Labs and imaging reviewed Chest x-ray shows worsening infiltrates BUN/Creatinine elevated Management Vent support Titrate to maintain sats 90% or above Sedation for vent synchrony Continue antibiotics F/u cultures Bronchodilators Monitor renal function Monitor electrolytes Supplement as needed Pressors as needed for hemodynamic support To maintain a mean arterial pressure of 65 mmHg Monitor blood count DVT prophylaxis Critical care time 35 minutes Dietary Evaluation Review Comments: 1) TPN to meet at least 75% estimated needs 2) Advance diet as medically feasible 3) Continue current plan of care Expected Outcomes/Goals: To meet >75% estimated needs FU 2-3 days Plan discussed with: Other (rn) CLARK FIGUEROA MD Sep 07, 2024 12:53
[2024-09-07] MEDS: NOREPINEPHRINE BITARTRATE 32 MG in SODIUM CHL 0.9% 218 ML IV SCH (12:59)
[2024-09-07 13:02] LABS: Base Excess -11.3 mmol/L (-2.0-3.0)
--- NOTE | 2024-09-07 16:11 | DVHPN2 ---
Subjective Overnight events noted. Typically on three pressors, and daughter but at bedside in the presence of bedside RN . All the current diagnosis prominences explained to the patient's and daughter at bedside. Patient remains critical pulses remain guarded. Reviewed: Care Plan Changes from previous H/P or p: No Changes Objective Vitals Vital Signs Date Time Temp Pulse Resp B/P (MAP) Pulse Ox O2 Delivery O2 Flow Rate FiO2 09/07/24 15:51 127 24 109/59 (76) 100 40 09/07/24 04:00 98.0 98.0 09/06/24 20:00 Mechanical Ventilator+ 09/05/24 20:00 3 Intake/Output Intake and Output 09/07/24 07:00 Intake Total 6280.75 ml Output Total 850 ml Balance 5430.75 ml Intake Oral 100 ml IV Total 6180.75 ml Output Urine Total 595 ml Gastric Drainage Total 255 ml Chest Tube Drainage Total 0 ml Exam HEENT pupils are reactive Neck is supple CV is S1-S2 regular rate and rhythm Respiratory diminished breath sounds bases GI positive bowel sound Extremity no edema 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 Medications Current Medications Medications Dose Ordered Sig/Imtiaz Route Start Time Stop Time Status Last Admin Dose Admin Nitroglycerin 0.4 mg Q5MINP PRN SL 09/01/24 14:15 Morphine Sulfate 2 mg Q30M PRN IV 09/01/24 14:15 Atorvastatin Calcium 20 mg HS PO 09/01/24 22:00 09/06/24 21:39 20 MG Metoprolol Tartrate 1.25 mg Q6HPRN PRN IV 09/01/24 14:15 Furosemide 40 mg DAILY IV 09/02/24 10:00 09/07/24 14:52 40 MG [place] Carbonate 300 mg BID PO 09/03/24 22:00 09/05/24 10:42 300 MG Risperidone 0.5 mg HS PO 09/04/24 22:00 09/06/24 21:39 0.5 MG Pantoprazole Sodium 50 ml @ 10 mls/hr Q5H IV 09/05/24 18:00 09/07/24 14:53 10 MLS/HR Acetaminophen 1,000 mg Q12H PRN IV 09/05/24 21:45 Midazolam HCl 50 ml @ 1 mls/hr Q24H IV 09/06/24 00:15 09/07/24 12:51 14 MLS/HR Fentanyl Citrate 250 ml @ 2.5 mls/hr Q24H IV 09/06/24 00:15 09/07/24 08:35 25 MLS/HR Diagnostic Test (Pha) 1 strip Q6HR 09/06/24 18:00 09/07/24 12:25 1 STRIP Insulin Human Regular Q6HR SC 09/06/24 18:00 09/07/24 05:11 6 UNITS Dextrose 50 ml UD PRN IV 09/06/24 12:30 Vancomycin HCl 0 ml @ 0 mls/hr UD STAT IV 09/06/24 14:38 09/06/24 14:39 UNV Meropenem 50 ml @ 17 mls/hr Q8HR IV 09/06/24 22:00 09/07/24 14:52 17 MLS/HR Vasopressin 20 units/Sodium Chloride 100 ml @ 9 mls/hr Q11H7M IV 09/06/24 15:00 09/07/24 13:14 9 MLS/HR Vancomycin HCl 0 ml @ 0 mls/hr UD IV 09/06/24 16:00 Micafungin Sodium 100 mg/Sodium Chloride 100 ml @ 100 mls/hr DAILY IV 09/07/24 10:00 09/07/24 09:54 100 MLS/HR Sodium Chloride 1,000 ml @ 100 mls/hr Q10H IV 09/06/24 19:15 09/07/24 15:21 100 MLS/HR Phenylephrine HCl 80 mg/Sodium Chloride 250 ml @ 7.5 mls/hr Q24H IV 09/07/24 10:15 09/07/24 12:09 29.063 MLS/HR Norepinephrine Bitartrate 32 mg/ Sodium Chloride 250 ml @ 0.938 mls/ hr Q24H IV 09/07/24 10:15 09/07/24 12:59 14.063 MLS/HR Laboratory Results Laboratory Tests 09/06/24 03:55 09/07/24 03:35 Blood Gas Results Test 09/07/24 07:50 09/07/24 10:34 09/07/24 12:53 Arterial Blood pH 7.010 (7.350-7.450) 7.055 (7.350-7.450) 7.239 (7.350-7.450) FiO2 % 40.0 40.0 40.0 Microbiology Microbiology Date/Time Source Procedure Growth Status 09/06/24 02:44 Sputum Gram Stain Pending Resulted 09/06/24 02:44 Sputum Respiratory Culture - Preliminary Resulted 09/05/24 21:30 Voided Urine Urine Culture - Preliminary Resulted 09/05/24 18:26 Blood Blood Culture - Preliminary NO GROWTH AFTER 24 HOURS OF INCUBATION. Resulted 09/02/24 10:49 Pleural Fluid Gram Stain - Final Complete 09/02/24 10:49 Pleural Fluid Body Fluid Culture - Final Complete Assessment/Plan Assessment/Plan 69-year-old male with a known history of CAD status post PCI, hypertension, d yslipidemia who initially presented to the hospital with multiple falls found to have , found to have pleural effusion status post pigtail catheter placement. Overnight events noted. 1. Acute hypoxic respiratory failure requiring intubation on mechanical ventilation 2. Hemorrhagic shock requiring multiple vasopressors 3. Acute GI bleed with melanotic stools, currently on Protonix drip, GI consultation for evaluation of EGD 4. Left-sided massive pleural effusion status post pigtail catheter placement 5. Acute metabolic encephalopathy with underlying psychiatric disorder 6. Mood disorder currently on lithium 7. Right clavicle fracture status post sling support, conservative management as per orthopedics 8. CAD status post LAD stents -continue IV vasopressors, Protonix drip, GI consultation appreciated, possibly scheduled for EGD in next day or two. -continue vent management per Pulmonary, -monitor H&H, left-sided pigtail catheter management -patient was remains critical prognosis remain guarded. Plan discussed with: Spouse, Daughter My Orders Orders - BRYSON SMITH MD Procedure Category Date Status Time * Neurology Consult CONS 09/06/24 Transmitted 18:24 Abg W/ Co-Ox RT 09/07/24 Logged 04:00 Sodium Chl 0.9% PHA 09/07/24 In Process (Ns... 10:15 Sodium Chl 0.9% PHA 09/07/24 In Process (Ns... 10:15 Date of Service: Sep 07, 2024 Billing Provider: BRYSON SMITH MD Common Visit Codes: NOT BILLABLE BRYSON SMITH MD Sep 07, 2024 16:11
--- NOTE | 2024-09-07 21:48 | DVHPN2 ---
Progress Note - Dictate Date Seen: Sep 07, 2024 Medical Necessity Reason Pt with a Central, PICC or Fol: Yes The following are medically ne: Kim Catheter Reason for kim catheter: Strict I&O Subjective Patient was transferred to the ICU However the patient's condition deteriorated and became unresponsive requiring intubation Patient is currently on FiO2 40% with a PEEP of eight Patient has bilateral lung opacities suspected bilateral pneumonia and sepsis He has been running hypotensive and low blood pressures requiring high dose of IV Levophed Patient only had about 100 mL of coffee-ground via the NG tube and the nurses not reporting any further melena His hemoglobin this morning was up to 12 after receiving only 1 unit PRBC His leukocytosis has however worsened and patient appears to be in septic shock Initial CT chest had shown some dilated esophagus, pulmonary nodule and multiple mediastinal lymph nodes Patient has a left-sided chest tube that initially drained a lot however now the last drainage is only about 20 mL recorded vital signs Vital Sign Date Time Temp Pulse Resp B/P (MAP) Pulse Ox O2 Delivery O2 Flow Rate FiO2 09/07/24 20:45 120/58 09/07/24 20:10 126 24 99 40 09/07/24 12:01 98.1 98.1 09/07/24 08:15 Mechanical Ventilator+ 09/05/24 20:00 3 Total Intake and Output 09/06/24 09/06/24 09/07/24 14:59 22:59 06:59 Intake Total 837.75 ml 2262.50 ml 2902.00 ml Output Total 825 ml 125 ml Balance 837.75 ml 1437.50 ml 2777.00 ml medications Current Medications Medications Dose Ordered Sig/Imtiaz Route Start Time Stop Time Status Last Admin Dose Admin Nitroglycerin 0.4 mg Q5MINP PRN SL 09/01/24 14:15 Morphine Sulfate 2 mg Q30M PRN IV 09/01/24 14:15 Atorvastatin Calcium 20 mg HS PO 09/01/24 22:00 09/06/24 21:39 20 MG Metoprolol Tartrate 1.25 mg Q6HPRN PRN IV 09/01/24 14:15 Furosemide 40 mg DAILY IV 09/02/24 10:00 09/07/24 14:52 40 MG [place] Carbonate 300 mg BID PO 09/03/24 22:00 09/05/24 10:42 300 MG Risperidone 0.5 mg HS PO 09/04/24 22:00 09/06/24 21:39 0.5 MG Pantoprazole Sodium 50 ml @ 10 mls/hr Q5H IV 09/05/24 18:00 09/07/24 20:41 10 MLS/HR Acetaminophen 1,000 mg Q12H PRN IV 09/05/24 21:45 Midazolam HCl 50 ml @ 1 mls/hr Q24H IV 09/06/24 00:15 09/07/24 20:35 13 MLS/HR Fentanyl Citrate 250 ml @ 2.5 mls/hr Q24H IV 09/06/24 00:15 09/07/24 18:51 22.5 MLS/HR Diagnostic Test (Pha) 1 strip Q6HR 09/06/24 18:00 09/07/24 18:44 1 STRIP Insulin Human Regular Q6HR SC 09/06/24 18:00 09/07/24 05:11 6 UNITS Dextrose 50 ml UD PRN IV 09/06/24 12:30 Vancomycin HCl 0 ml @ 0 mls/hr UD STAT IV 09/06/24 14:38 09/06/24 14:39 UNV Meropenem 50 ml @ 17 mls/hr Q8HR IV 09/06/24 22:00 09/07/24 14:52 17 MLS/HR Vasopressin 20 units/Sodium Chloride 100 ml @ 9 mls/hr Q11H7M IV 09/06/24 15:00 09/07/24 20:45 9 MLS/HR Vancomycin HCl 0 ml @ 0 mls/hr UD IV 09/06/24 16:00 Micafungin Sodium 100 mg/Sodium Chloride 100 ml @ 100 mls/hr DAILY IV 09/07/24 10:00 09/07/24 09:54 100 MLS/HR Sodium Chloride 1,000 ml @ 100 mls/hr Q10H IV 09/06/24 19:15 09/07/24 15:21 100 MLS/HR Phenylephrine HCl 80 mg/Sodium Chloride 250 ml @ 7.5 mls/hr Q24H IV 09/07/24 10:15 09/07/24 12:09 29.063 MLS/HR Norepinephrine Bitartrate 32 mg/ Sodium Chloride 250 ml @ 0.938 mls/ hr Q24H IV 09/07/24 10:15 09/07/24 12:59 14.063 MLS/HR objective HEENT pupils are reactive Neck is supple CV is S1-S2 regular rate and rhythm Respiratory diminished breath sounds bases GI positive bowel sound Extremity no edema 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[facility]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 laboratory and microbiology Laboratory Tests 09/07/24 03:35 09/06/24 03:55 Test 09/06/24 03:55 Range/Units Serum Glucose 432 #*H 74-106 mg/dL Problems(with codes): (1) Leukocytosis (2) Septic shock (3) Opacities of both lungs present on chest x-ray (4) GI bleed (5) Shortness of breath (6) Acute metabolic encephalopathy Prognosis Plan Continue broad-spectrum antibiotics Continue cardiopulmonary support Continue observation from GI point of view If the hemoglobin drops below eight we will transfuse 1 unit PRBC I will tentatively plan an endoscopy in one or two days pending his clinical improvement Dietary Evaluation Review Comments: 1) TPN to meet at least 75% estimated needs 2) Advance diet as medically feasible 3) Continue current plan of care Expected Outcomes/Goals: To meet >75% estimated needs FU 2-3 days Plan discussed with: Patient, Other (ICU Nurse) HEAVEN GLASGOW MD Sep 07, 2024 21:48
[2024-09-08] VITALS (106 sets, daily range): BP systolic 86–165; BP diastolic 41–71; PULSE 87–125; RESP 22–24; TEMP 98.2–98.9; O2SAT 46–98
[2024-09-08 04:25] LABS: Hematocrit 28.2 % (41.0-53.0); Mean Corpuscular Hemoglobin 29.8 pg (28.0-32.0); Mean Corpuscular Hgb Conc. 31.8 g/dL (32.0-36.0); Mean Corpuscular Volume 93.8 fL (80.0-100.0); Platelet Count (auto) 398 10^3/uL (140-450); Red Cell Distribution Width 13.7 % (11.8-14.3)
[2024-09-08 04:40] LABS: White Blood Cell 34.8 10^3/uL (4.4-10.8)
[2024-09-08 04:42] LABS: Basophils % (manual) 0 (0.0-2.0); Blast Cells 0; Eosinophils % (manual) 0 (0-7); Myelocytes % 0; Promyelocytes % 0; Reactive Lymphocytes 0
[2024-09-08 04:53] LABS: Band Neutrophils % (manual) 3; Lymphocytes % (manual) 4 (10.0-50.0); Metamyelocytes % 1; Monocytes % (manual) 3 (0-12)
[2024-09-08 04:59] LABS: Platelet Estimate Adequate
--- NOTE | 2024-09-08 05:37 | DVH ---
EXAM: XR Chest, 1 View CLINICAL INDICATION: chest tube TECHNIQUE: Frontal view of the chest. COMPARISON: XY CHEST PORTABLE on DOS: 09/07/24, XY CHEST PORTABLE on DOS: 09/06/24, XY CHEST PORTABLE on DOS: 09/06/24, XY CHEST PORTABLE on DOS: 09/06/24, XY CHEST PORTABLE on DOS: 09/05/24 FINDINGS: LUNGS AND PLEURAL SPACES: Pulmonary congestion and edema. Pneumonia cannot be excluded. Left basil ar atelectasis or pneumonia. Left pleural effusion. No pneumothorax. HEART: Unremarkable. No cardiomegaly. MEDIASTINUM: Unremarkable. Normal mediastinal contour. BONES/JOINTS: Unremarkable. No acute fracture. TUBES, LINES AND DEVICES: The endotracheal tube (ETT) is in satisfactory position. Enteric tube ti p in the stomach. OTHER FINDINGS: . IMPRESSION: 1. Pulmonary congestion and edema. Pneumonia cannot be excluded. 2. Left basilar atelectasis or pneumonia. 3. Left pleural effusion.
[2024-09-08 09:14] LABS: Alkaline Phosphatase 99 U/L (46-116); Anion Gap 11 (5-15); Aspartate Aminotransferase 39 U/L (13-40); BUN/Creatinine Ratio 41.9 (10.0-20.0); Potassium 4.3 mmol/L (3.5-5.1); Sodium 144 mmol/L (136-145)
[2024-09-08 09:15] LABS: Bilirubin, Total 0.3 mg/dL (0.2-1.0)
[2024-09-08 09:16] LABS: Alanine Aminotransferase 66 U/L (7-40); Albumin 2.4 g/dL (3.2-4.8); Blood Urea Nitrogen 65 mg/dL (9-23); Calcium 7.5 mg/dL (8.7-10.4); Carbon Dioxide 16 mmol/L (20-31); Chloride 117 mmol/L (98-107); Glucose 248 mg/dL (74-106); Total Protein 4.7 g/dL (5.7-8.2)
--- NOTE | 2024-09-08 10:16 | DVHINCON2 ---
Date of service: Sep 08, [address] Brown Reason for Consultation Unequal pupils History of Present Illness Mr. Vega it was 69 years old gentleman with a history of diabetes, dyslipidemia, coronary artery disease, bipolar disorder, he was brought to the [facility] on 09/01/2024 with a chief company of medical clinic falls, pain in the right shoulder, right hip, hip, and right arm numbness. At this time, the patient is sedated, intubated, unresponsive to stroke painful stimuli, not able to provide history. The history is obtained from his nurse and chart review His nurse he was had him when he was in the ER, he noticed the patient was oriented x4 at that time but he was had psychiatric symptoms, such as talking about deman was pushing him, later, the patient was found to be confused, he was found to have fluid infusion, and he received thoracentesis in the ER, and was admitted to the telemetry, where he had code assistance twice on 09/05/24 Code assistance, 09/05/2024, 08/14/2044: Tachypnea, tachycardia, low oxygen Code assistance, 09/05/2024 1838: Nonresponsive, SBP < 90, The patient was intubated after 2nd code assistance, and was intubated and transferred to ICU. Where he has been nonresponsive since On 09/08/2024, the patient was found to have unequal pupil with left-sided slightly bigger Per my observation, he does have anisocoria, right: 4-5 mm. Left 4 mm, the anisocoria is less obvious when the pupils are shrunk In the hospital, the patient was also found to have sepsis, septic shock, GI bleeding (seven bloody stool on 09/06/2023), lactic acidosis, metabolic acidosis [place], 09/24/2024: ABG, 09/05/24: Respiratory alkalosis. 09/06/2024: Metabolic acidosis, 09/24/2024, metabolic acidosis, hypoxia, 08/1424: Metabolic acidosis, hypoxia WBC/HB/PLT/MCV, 09/08/2024: 34.8/9/398/9 BUN/CR, 09/08/2024: 65/1.55 TBI/AST/ALT/AP, 09/08/2024: 0.3/39/66/99 TSH, 09/01/2024, 0.44 CXR, 09/08/2024: 1. Pulmonary congestion and edema. Pneumonia cannot be e xcluded. 2. Left basilar atelectasis or pneumonia. 3. Left pleural effusion. CT head, 09/01/2024: 1. No evidence of acute intracranial hemorrhage, mass effect or hydrocephalus. 2. Diffuse atrophy and chronic microvascular ischemic changes CT chest, 09/04/2024: 1. Limited evaluation given noncontrast technique. 2. Moderate left pleural effusion with scattered locules of air, slightly decreased in size compared to prior. 3. Pigtail drainage catheter terminates in the left lung base. 4. Multiple prominent mediastinal and pericardial nodes, nonspecific. 5. 0.5 cm left upper lobe pulmonary nodule. 6. Fluid-filled esophagus places the patient at risk for aspiration CTA chest, 09/02/2024: 1. No evidence of pulmonary embolism. 2. Moderate left hydropneumothorax. 3. Pulmonary edema and right pleural effusion. Correlation for congestive heart failure recommended. 4. 3.0 cm right thyroid nodule. Correlation with thyroid ultrasound is strongly recommended. 5. Mediastinal lymphadenopathy which may be metastatic. 6. Cardiomegaly.7. Lytic lesion in the distal right clavicle with pathologic fracture. This is concerning for a metastatic lesion. PET-CT recommended. 8. Acute appearing fracture through the sternum. Past Medical History Diabetes, dyslipidemia, coronary artery disease, Past Surgical History PTCA status post stenting, pilonidal cyst removal Family History: Ischemic heart disease G8 MOTHER G8 FATHER Family History Heart disease Social History Smoker: Cigarettes, Less Than 1 Pack/Day Alcohol: Denies ETOH Use Drugs: Denies Drug Use Lives In: Home Allergies: Coded Allergies: NO KNOWN ALLERGIES (Unverified , 06/18/23) Home Meds Reported Medications Atorvastatin Calcium (ATORVASTATIN CALCIUM) 20 Mg Tab, 1 TAB PO DAILY for 90 Days, #90 09/03/24 Propranolol Hcl (Inderal La) 60 Mg Cap, 1 CAP PO DAILY for htn, #90 CAP 1 Refill 06/18/23 Isosorbide Mononitrate (Isosorbide Mononitrate Er) 30 Mg Tab, 30 MG PO DAILY for angina, MG 06/18/23 Benztropine Mesylate (Benztropine Mesylate) 1 Mg Tab, 1 TAB PO BID for 60 Days, #120 1/22/24 Glipizide (Glipizide) 10 Mg Tab, 1 TAB PO BID for DIABETES for 90 Days, #180 06/18/23 Aspirin (Aspirin) 325 Mg Tab, 325 MG PO DAILY for cad, MG 06/18/23 Sitagliptin Phosphate (Januvia) 100 Mg Tab, 1 TAB PO DAILY for DIABETES for 90 Days, #90 06/18/23 Trazodone Hcl (Trazodone Hcl) 50 Mg Tab, 3 TAB PO HS for 60 Days, #180 06/18/23 [place] Carbonate ([place] Carbonate) 300 Mg Cap, 1 TAB PO DAILY for 60 Days, #60 06/18/23 Current Medications Current Medications Medications (Trade) Dose Ordered Sig/Imtiaz Route PRN Reason Start Time Stop Time Status Last Admin Micafungin Sodium 100 mg/Sodium Chloride 100 ml @ 100 mls/hr DAILY IV 09/07/24 10:00 09/08/24 09:39 Phenylephrine HCl 80 mg/Sodium Chloride 250 ml @ 7.5 mls/hr Q24H IV 09/07/24 10:15 09/08/24 03:12 Norepinephrine Bitartrate 32 mg/ Sodium Chloride 250 ml @ 0.938 mls/ hr Q24H IV 09/07/24 10:15 09/08/24 06:07 Review of Systems Unobtainable Vital Signs Vital Signs Date Time Temp Pulse Resp B/P (MAP) Pulse Ox O2 Delivery O2 Flow Rate FiO2 09/08/24 09:43 113 24 114/55 (74) 95 30 09/08/24 08:00 Mechanical Ventilator+ 09/08/24 04:00 98.7 98.7 Physical Exam The patient is well-nourished and well-developed with no distress. The patient is intubated HEENT: Normocephalic, neck supple, no carotid bruits Lungs: Clear to auscultation Cardiovascular: Regular rate and region, S1, S2, no murmurs Abdomen: Soft, nontender, normal bowel sounds MENTAL STATUS: HPI CRANIAL NERVES: Pupils are round and slightly reactive reactive, left-sided slightly bigger.There are corneal reflexes and doll's eyes phenomenon. No signs of facial weakness. There are no gagging or coughing reflexes SENSATION: No responses to pain stimuli. MOTOR: Normal tone in the upper and lower extremity. Normal muscle bulk. No fas ciculations. No spontaneous movement. REFLEXES: Deep tendon reflexes are symmetrical. No pathological reflexes. CEREBELLAR/COORDINATION: Deferred GAIT/STATION: deferred. Labs/Diagnostic Data Labs Test 09/08/24 08:40 09/08/24 07:22 09/08/24 05:47 09/08/24 03:46 Range/Units Sodium Level 144 # 136-145 mmol/L Potassium Level 4.3 3.5-5.1 mmol/L Chloride Level 117 #H 98-107 mmol/L Carbon Dioxide Level 16 L 20-31 mmol/L Anion Gap 11 5-15 Blood Urea Nitrogen 65 H 9-23 mg/dL Creatinine 1.55 H 0.700-1.30 mg/dL Glomerular Filtration Rate Calc 48 >90 mL/min BUN/Creatinine Ratio 41.9 H 10.0-20.0 Serum Glucose 248 #H 74-106 mg/dL Calcium Level 7.5 L 8.7-10.4 mg/dL Total Bilirubin 0.3 0.2-1.0 mg/dL Aspartate Amino Transferase (AST) 39 13-40 U/L Alanine Aminotransferase (ALT) 66 H 7-40 U/L Alkaline Phosphatase 99 46-116 U/L Total Protein 4.7 L 5.7-8.2 g/dL Albumin 2.4 L 3.2-4.8 g/dL Blood Gas Specimen Type Arterial Blood Gas Sample Site Arterial line Blood Gas Patient Temperature 37.0 Arterial Blood Date Drawn [id number] Arterial Blood pH 7.260 L 7.350-7.450 Arterial Blood Partial Pressure CO2 31.8 L 35.0-48.0 mmHg Arterial Blood Partial Pressure O2 73.5 L 83.0-108.0 mmHg Arterial Blood HCO3 13.9 L 21.0-28.0 mmol/L Arterial Blood Oxygen Saturation 93.0 L 94.0-98.0 % Arterial Blood Base Excess -12.0 L -2.0-3.0 mmol/L Arterial Blood Oxyhemoglobin 92.5 L 94.0-98.0 % Arterial Blood Carboxyhemoglobin 0.2 L 0.5-1.5 % Arterial Blood Methemoglobin 0.3 0.0-1.5 % Ezekiel Test N/a Blood Gas Total Hemoglobin 9.70 L 13.5-17.5 g/dL Blood Gas Set Respiration Rate 24.0 Blood Gas Modality Vent - p/c FiO2 % 30.0 Blood Gas PEEP or CPAP 8.0 Blood Gas Comments POC Glucose 229 H 70-106 mg/dl White Blood Count 34.8 *H 4.4-10.8 10^3/uL Red Blood Count 3.00 L 4.5-5.90 10^6/uL Hemoglobin 9.0 L 13.5-17.5 g/dL Hematocrit 28.2 L 41.0-53.0 % Mean Corpuscular Volume 93.8 80.0-100.0 fL Mean Corpuscular Hemoglobin 29.8 28.0-32.0 pg Mean Corpuscular Hemoglobin Concent 31.8 L 32.0-36.0 g/dL Red Cell Distribution Width 13.7 11.8-14.3 % Platelet Count 398 140-450 10^3/uL Mean Platelet Volume 7.3 6.9-10.8 fL Neutrophils (%) (Auto) 37.0-80.0 % Lymphocytes (%) (Auto) 10.0-50.0 % Monocytes (%) (Auto) 0.0-12.0 % Basophils (%) (Auto) 0.0-2.0 % Neutrophils # (Auto) 1.6-8.6 10 ^3/uL Lymphocytes # (Auto) 0.4-5.4 10 ^3/uL Monocytes # (Auto) 0-1.3 10 ^3/uL Differential Total Cells Counted 100.0 100 Neutrophils % (Manual) 89 H 37.0-80.0 Band Neutrophils % (Manual) 3 Lymphocytes % (Manual) 4 L 10.0-50.0 Monocytes % (Manual) 3 0-12 Eosinophils % (Manual) 0 0-7 Basophils % (Manual) 0 0.0-2.0 Metamyelocytes % (manual) 1 Myelocytes % (Manual) 0 Promyelocytes % (Manual) 0 Blast Cells % (Manual) 0 Reactive Lymphocytes 0 Platelet Estimate Adequate Random Vancomycin Level 18.6 H 5-10 ug/mL Test 09/07/24 12:53 09/07/24 10:34 09/07/24 03:35 09/06/24 16:35 Range/Units Blood Gas Spontaneous Rate 24 Blood Gas Spontaneous Tidal Volume 588 Blood Gas Inspiratory Pressure 15.0 Blood Gas Critical Value Read Back Yes Blood Gas Notified Whom Dr. tamez Blood Gas Notified Time [id number] Blood Gas Notified By Monisha jones rt. Blood Gas Tidal Volume 400.0 Random Gentamicin Level 8.2 H 0-5 ug/mL Anisocytosis (manual) Slight Test 09/06/24 10:30 09/05/24 23:47 09/05/24 21:37 09/05/24 09:45 Range/Units Prothrombin Time 11.6 9.3-11.8 sec Prothrombin Time INR 1.11 0.9-1.15 Activated Partial Thromboplast Time 28.3 24.5-34.5 SEC Blood Gas Liter Flow 4.00 Lactic Acid Level 4.5 *H 0.4-2.0 mmol/L Vancomycin Level Trough 8.8 5-10 ug/mL Test 09/05/24 05:56 09/02/24 10:49 09/01/24 15:10 09/01/24 14:14 Range/Units Eosinophils (%) (Auto) 1.9 0.0-7.0 % Eosinophils # (Auto) 0.5 0-0.8 10 ^3/uL Basophils # (Auto) 0 0-0.2 10 ^3/uL Nucleated Red Blood Cells 0.0 % Body Fluid Source Pleural fluid Body Fluid pH 9.0 Body Fluid WBC (Manual) 311 H 0-200 CUMM Body Fluid RBC (Manual) 99335 H 0-2000 CUMM Body Fluid Mononuclear Cells 79 % Body Fluid Polymorphonuclear Cells 21 0-25 % Body Fluid Glucose 139 . mg/dL Body Fluid Total Protein 3.3 . g/dL Body Fluid Lactate Dehydrogenase 544 . IU/L Troponin I High Sensitivity < 3 L </=54 ng/L Thyroid Stimulating Hormone (TSH) 0.44 L 0.55-4.78 uIU/mL Free Thyroxine (T4) Calculated 1.31 0.89-1.76 ng/dL Test 09/01/24 13:12 09/01/24 08:21 Range/Units B-Type Natriuretic Peptide 26.30 0-100 pg/mL Microbiology Date/Time Source Procedure Growth Status 09/06/24 19:47 Blood Blood Culture - Preliminary NO GROWTH AFTER 24 HOURS OF INCUBATION. Resulted 09/06/24 02:44 Sputum Gram Stain - Final Resulted 09/06/24 02:44 Sputum Respiratory Culture - Preliminary Resulted 09/05/24 21:30 Voided Urine Urine Culture - Preliminary Resulted 09/02/24 10:49 Pleural Fluid Gram Stain - Final Complete 09/02/24 10:49 Pleural Fluid Body Fluid Culture - Final Complete Assessment Anisocoria, uncertain clinical significance Coma Metabolic acidosis Hypoxic acidosis Toxic acidosis Sepsis, septic shock Pleural effusion status post thoracentesis GI bleeding Multiple falls Psychosis Plan/Recommendation Monitoring Supportive treatment ICU care MRA neck Follow-up lab Stabilize vitals Respiratory support/vent management Oxygen IV antibiotics Pantoprazole Progress: Guarded Critical care time spent 45 minutes This medical document was created using an electronic medical record system with [employer] dictation system. Although this document has been carefully reviewed, there may still be some phonetic and typographical errors. These areas are purely typographical due to imperfections of the software programs, and do not reflect any compromise in the patient's medical care. Plan discussed with: Other RESHMA BOWIE MD Sep 08, 2024 10:16
--- NOTE | 2024-09-08 10:22 | DVHPN2 ---
Progress Note - Dictate Date Seen: Sep 08, 2024 Medical Necessity Reason Pt with a Central, PICC or Fol: Yes The following are medically ne: Kim Catheter Reason for kim catheter: Strict I&O Subjective Patient is on three pressors, and daughter at bedside. EEG completed at bedside. Patient remains critical pulses remain guarded. vital signs Vital Sign Date Time Temp Pulse Resp B/P (MAP) Pulse Ox O2 Delivery O2 Flow Rate FiO2 09/08/24 09:57 128/59 09/08/24 09:43 113 24 95 30 09/08/24 08:00 Mechanical Ventilator+ 09/08/24 04:00 98.7 98.7 Total Intake and Output 09/07/24 09/07/24 09/08/24 15:00 23:00 07:00 Intake Total 2297.378 ml 1494.195 ml 1330.757 ml Output Total 2280 ml 1200 ml Balance 2297.378 ml -785.805 ml 130.757 ml medications Current Medications Medications Dose Ordered Sig/Imtiaz Route Start Time Stop Time Status Last Admin Dose Admin Nitroglycerin 0.4 mg Q5MINP PRN SL 09/01/24 14:15 Morphine Sulfate 2 mg Q30M PRN IV 09/01/24 14:15 Atorvastatin Calcium 20 mg HS PO 09/01/24 22:00 09/07/24 22:03 20 MG Metoprolol Tartrate 1.25 mg Q6HPRN PRN IV 09/01/24 14:15 Furosemide 40 mg DAILY IV 09/02/24 10:00 09/08/24 09:57 40 MG [place] Carbonate 300 mg BID PO 09/03/24 22:00 09/05/24 10:42 300 MG Risperidone 0.5 mg HS PO 09/04/24 22:00 09/07/24 22:03 0.5 MG Pantoprazole Sodium 50 ml @ 10 mls/hr Q5H IV 09/05/24 18:00 09/08/24 05:45 10 MLS/HR Acetaminophen 1,000 mg Q12H PRN IV 09/05/24 21:45 Midazolam HCl 50 ml @ 1 mls/hr Q24H IV 09/06/24 00:15 09/08/24 06:35 10 MLS/HR Fentanyl Citrate 250 ml @ 2.5 mls/hr Q24H IV 09/06/24 00:15 09/08/24 05:19 22.5 MLS/HR Diagnostic Test (Pha) 1 strip Q6HR 09/06/24 18:00 09/08/24 05:45 1 STRIP Insulin Human Regular Q6HR SC 09/06/24 18:00 09/08/24 06:13 6 UNITS Dextrose 50 ml UD PRN IV 09/06/24 12:30 Vancomycin HCl 0 ml @ 0 mls/hr UD STAT IV 09/06/24 14:38 09/06/24 14:39 UNV Meropenem 50 ml @ 17 mls/hr Q8HR IV 09/06/24 22:00 09/08/24 05:59 17 MLS/HR Vasopressin 20 units/Sodium Chloride 100 ml @ 9 mls/hr Q11H7M IV 09/06/24 15:00 09/08/24 07:41 9 MLS/HR Vancomycin HCl 0 ml @ 0 mls/hr UD IV 09/06/24 16:00 Micafungin Sodium 100 mg/Sodium Chloride 100 ml @ 100 mls/hr DAILY IV 09/07/24 10:00 09/08/24 09:39 100 MLS/HR Sodium Chloride 1,000 ml @ 100 mls/hr Q10H IV 09/06/24 19:15 09/07/24 15:21 100 MLS/HR Phenylephrine HCl 80 mg/Sodium Chloride 250 ml @ 7.5 mls/hr Q24H IV 09/07/24 10:15 09/08/24 03:12 10.313 MLS/HR Norepinephrine Bitartrate 32 mg/ Sodium Chloride 250 ml @ 0.938 mls/ hr Q24H IV 09/07/24 10:15 09/08/24 06:07 10.313 MLS/HR objective Gen.: Patient is intubated. Head: Normocephalic, atraumatic. Eyes: EOMI/PERRLA. Ears: Normal hearing. Normal anatomy. Neck/trachea: Trachea midline, supple. Nose: Normal external anatomy. Mouth: Moist mucous membranes. Chest: Decreased air entry bilaterally. No wheezing or rhonchi. Cardiovascular: Positive S1, positive S2. Regular rate and rhythm. Abdomen: Positive bowel sounds in all 4 quadrants. Soft, non-tender, non- distended. Skin: Warm, dry. Intact. Extremities: 2+ radial pulses bilaterally. No lower extremity edema. Neuro: Intubated and Sedated. laboratory and microbiology Laboratory Tests 09/08/24 08:40 09/08/24 03:46 Test 09/08/24 08:40 Range/Units Serum Glucose 248 #H 74-106 mg/dL Assessment/Plan Patient is a 69-year-old male with: Severe septic shock on multiple pressors GI bleed with hemorrhagic shock Left lung pneumonia Acute hypoxic respiratory failure on MV Left hydropneumothorax with chest tube Lytic lesion on right clavicle : concern for metastatic disease lactic acidosis EUN metobolic acidosis CHFE Recommendations Patient is intubated and on multiple pressors. Maxed out of Levophed, phenyl ephrine and vasopressin Reviewed 2 sets of blood culture, showed no growth stat dose of Gentamicin x1 Continue stat doses of Vancomycin/ Meropenem 09/08, Vancomycin random is 18.6. repeat cbc; increased to 45k hence added IV Micafungin empirically, WBC trending down monitor lactic acidosis Discontinued Linezolid/Ceftriaxone Fluid cx was no growth Has chest tube he is s/p 1 unit blood transfusion. blood thinner is on hold prognosis is very critical Critical 35 minutes spent during encounter, coordinated the care Thank you for consult Dietary Evaluation Review Comments: 1) TPN to meet at least 75% estimated needs 2) Advance diet as medically feasible 3) Continue current plan of care Expected Outcomes/Goals: To meet >75% estimated needs FU 2-3 days JAYASHREE CHOWDARY MD Sep 08, 2024 10:22
[2024-09-08] MEDS: VANCOMYCIN 500mg/100mL 100 ML IV ONE (15:00)
[2024-09-08] MEDS ORDERED: TPN PER PHARMACY 0 ML IV SCH (15:45)
[2024-09-08] MEDS ORDERED: DEXTROSE (50%) 50ML SYRG IV SCH (16:15)
--- NOTE | 2024-09-08 16:19 | DVHPN2 ---
Subjective Overnight events noted. Patient was has anisocoria with the left pupil was 5 mm, right pupil was 4 mm, CT head was ordered and neurology consult will be obtained. Reviewed: Care Plan Changes from previous H/P or p: Changes Objective Vitals Vital Signs Date Time Temp Pulse Resp B/P (MAP) Pulse Ox O2 Delivery O2 Flow Rate FiO2 09/08/24 16:10 108 24 134/61 (85) 97 30 09/08/24 12:00 Mechanical Ventilator+ 09/08/24 04:00 98.7 98.7 Intake/Output Intake and Output 09/08/24 07:00 Intake Total 5289.456 ml Output Total 3480 ml Balance 1809.456 ml Intake Oral 60 ml IV Total 5229.456 ml Output Urine Total 3350 ml Gastric Drainage Total 50 ml Chest Tube Drainage Total 80 ml Exam HEENT pupils are reactive , left pupil was 5 mm, right pupil was 4 mm Neck is supple CV is S1-S2 regular rate and rhythm Respiratory diminished breath sounds bases GI positive bowel sound Extremity no edema 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 Medications Current Medications Medications Dose Ordered Sig/Imtiaz Route Start Time Stop Time Status Last Admin Dose Admin Nitroglycerin 0.4 mg Q5MINP PRN SL 09/01/24 14:15 Morphine Sulfate 2 mg Q30M PRN IV 09/01/24 14:15 Atorvastatin Calcium 20 mg HS PO 09/01/24 22:00 09/07/24 22:03 20 MG Metoprolol Tartrate 1.25 mg Q6HPRN PRN IV 09/01/24 14:15 Furosemide 40 mg DAILY IV 09/02/24 10:00 09/08/24 09:57 40 MG [place] Carbonate 300 mg BID PO 09/03/24 22:00 09/05/24 10:42 300 MG Risperidone 0.5 mg HS PO 09/04/24 22:00 09/07/24 22:03 0.5 MG Pantoprazole Sodium 50 ml @ 10 mls/hr Q5H IV 09/05/24 18:00 09/08/24 15:33 10 MLS/HR Acetaminophen 1,000 mg Q12H PRN IV 09/05/24 21:45 Midazolam HCl 50 ml @ 1 mls/hr Q24H IV 09/06/24 00:15 09/08/24 15:51 7 MLS/HR Fentanyl Citrate 250 ml @ 2.5 mls/hr Q24H IV 09/06/24 00:15 09/08/24 05:19 22.5 MLS/HR Vancomycin HCl 0 ml @ 0 mls/hr UD STAT IV 09/06/24 14:38 09/06/24 14:39 UNV Meropenem 50 ml @ 17 mls/hr Q8HR IV 09/06/24 22:00 09/08/24 14:10 17 MLS/HR Vasopressin 20 units/Sodium Chloride 100 ml @ 9 mls/hr Q11H7M IV 09/06/24 15:00 09/08/24 07:41 9 MLS/HR Vancomycin HCl 0 ml @ 0 mls/hr UD IV 09/06/24 16:00 Micafungin Sodium 100 mg/Sodium Chloride 100 ml @ 100 mls/hr DAILY IV 09/07/24 10:00 09/08/24 09:39 100 MLS/HR Sodium Chloride 1,000 ml @ 100 mls/hr Q10H IV 09/06/24 19:15 09/08/24 12:15 100 MLS/HR Phenylephrine HCl 80 mg/Sodium Chloride 250 ml @ 7.5 mls/hr Q24H IV 09/07/24 10:15 09/08/24 03:12 10.313 MLS/HR Norepinephrine Bitartrate 32 mg/ Sodium Chloride 250 ml @ 0.938 mls/ hr Q24H IV 09/07/24 10:15 09/08/24 06:07 10.313 MLS/HR Amino Acids 0 ml @ 0 mls/hr PER PHARMACY IV 09/08/24 15:45 Diagnostic Test (Pha) 1 strip Q6HR 09/08/24 18:00 Insulin Human Regular FOLLOW SLIDING SCALE Q6HR SC 09/08/24 18:00 Dextrose 50 ml UD IV 09/08/24 16:15 Laboratory Results Laboratory Tests 09/08/24 03:46 09/08/24 08:40 Chemistry Test 09/08/24 08:40 Albumin 2.4 g/dL (3.2-4.8) L Calcium Level 7.5 mg/dL (8.7-10.4) L Magnesium Level Pending Phosphorus Level Pending Total Protein 4.7 g/dL (5.7-8.2) L LFT Test 09/08/24 08:40 Alanine Aminotransferase (ALT) 66 U/L (7-40) H Alkaline Phosphatase 99 U/L (46-116) Aspartate Amino Transferase (AST) 39 U/L (13-40) Total Bilirubin 0.3 mg/dL (0.2-1.0) Blood Gas Results Test 09/08/24 07:22 Arterial Blood pH 7.260 (7.350-7.450) FiO2 % 30.0 Microbiology Microbiology Date/Time Source Procedure Growth Status 09/06/24 19:47 Blood Blood Culture - Preliminary NO GROWTH AFTER 24 HOURS OF INCUBATION. Resulted 09/06/24 02:44 Sputum Gram Stain - Final Resulted 09/06/24 02:44 Sputum Respiratory Culture - Preliminary Resulted 09/05/24 21:30 Voided Urine Urine Culture - Final Complete 09/02/24 10:49 Pleural Fluid Gram Stain - Final Complete 09/02/24 10:49 Pleural Fluid Body Fluid Culture - Final Complete Assessment/Plan Assessment/Plan 69-year-old male with a known history of CAD status post PCI, hypertension, d yslipidemia who initially presented to the hospital with multiple falls found to have , found to have pleural effusion status post pigtail catheter placement. Overnight events noted. 1. Acute hypoxic respiratory failure requiring intubation on mechanical ventilation 2. Hemorrhagic shock requiring multiple vasopressors 3. Acute GI bleed with melanotic stools, currently on Protonix drip, GI consultation for evaluation of EGD 4. Left-sided massive pleural effusion status post pigtail catheter placement 5. Acute metabolic encephalopathy with underlying psychiatric disorder 6. Mood disorder currently on lithium 7. Right clavicle fracture status post sling support, conservative management as per orthopedics 8. CAD status post LAD stents 9. Anisocoria rule out acute SCREEDMAN pathology next -CT head noncontrast, neurology consultation -continue IV vasopressors, Protonix drip, GI consultation appreciated, EGD still pending -continue vent management per Pulmonary, -monitor H&H, left-sided pigtail catheter management -patient was remains critical prognosis remain guarded. Plan discussed with: Other My Orders Orders - BRYSON SMITH MD Procedure Category Date Status Time Tpn Per Pharmacy PHA 09/08/24 In Process 15:45 Magnesium LAB 09/08/24 In Process 15:53 Phosphorus LAB 09/08/24 In Process 15:53 Glucose Blood PHA 4/14/25 In Process (Accu-Chek Comfort 18:00 Insulin R (Human) PHA 09/08/24 In Process (Insulin R) 18:00 Dextrose 50% Syringe PHA 09/08/24 In Process 16:15 Date of Service: Sep 08, 2024 Billing Provider: BRYSON SMITH MD Common Visit Codes: NOT BILLABLE BRYSON SMITH MD Sep 08, 2024 16:19
[2024-09-08 16:49] LABS: Magnesium 1.9 mg/dL (1.6-2.6)
[2024-09-08] MEDS: ACCU-CHEK COMFORT CURVE STRIP VI SCH (17:28)
[2024-09-08] MEDS: InsuLIN REG 1unit/0.01ml Soln (100units/ml) SC SCH (17:29)
[2024-09-08] MEDS: AMINO ACID INFUSION IN D10W 1,000 ML IV ONE (21:48)
--- NOTE | 2024-09-08 22:02 | DVHPN2 ---
Progress Note - Dictate Date Seen: Sep 08, 2024 Medical Necessity Reason Pt with a Central, PICC or Fol: Yes The following are medically ne: Kim Catheter Reason for kim catheter: Strict I&O Subjective Patient seen and examined at bedside. Sedated, intubated on mechanical ventilator. Overnight events reviewed. vital signs Vital Sign Date Time Temp Pulse Resp B/P (MAP) Pulse Ox O2 Delivery O2 Flow Rate FiO2 09/08/24 20:21 100 24 94/50 (65) 97 30 09/08/24 18:00 Mechanical Ventilator+ 09/08/24 04:00 98.7 98.7 Total Intake and Output 09/07/24 09/07/24 09/08/24 15:00 23:00 07:00 Intake Total 2297.378 ml 1494.195 ml 1497.883 ml Output Total 2280 ml 1200 ml Balance 2297.378 ml -785.805 ml 297.883 ml medications Current Medications Medications Dose Ordered Sig/Imtiaz Route Start Time Stop Time Status Last Admin Dose Admin Nitroglycerin 0.4 mg Q5MINP PRN SL 09/01/24 14:15 Morphine Sulfate 2 mg Q30M PRN IV 09/01/24 14:15 Atorvastatin Calcium 20 mg HS PO 09/01/24 22:00 09/08/24 21:48 20 MG Metoprolol Tartrate 1.25 mg Q6HPRN PRN IV 09/01/24 14:15 Furosemide 40 mg DAILY IV 09/02/24 10:00 09/08/24 09:57 40 MG [place] Carbonate 300 mg BID PO 09/03/24 22:00 09/05/24 10:42 300 MG Risperidone 0.5 mg HS PO 09/04/24 22:00 09/07/24 22:03 0.5 MG Pantoprazole Sodium 50 ml @ 10 mls/hr Q5H IV 09/05/24 18:00 09/08/24 18:37 10 MLS/HR Acetaminophen 1,000 mg Q12H PRN IV 09/05/24 21:45 Midazolam HCl 50 ml @ 1 mls/hr Q24H IV 09/06/24 00:15 09/08/24 15:51 7 MLS/HR Fentanyl Citrate 250 ml @ 2.5 mls/hr Q24H IV 09/06/24 00:15 09/08/24 18:37 15 MLS/HR Vancomycin HCl 0 ml @ 0 mls/hr UD STAT IV 09/06/24 14:38 09/06/24 14:39 UNV Meropenem 50 ml @ 17 mls/hr Q8HR IV 09/06/24 22:00 09/08/24 21:47 17 MLS/HR Vasopressin 20 units/Sodium Chloride 100 ml @ 9 mls/hr Q11H7M IV 09/06/24 15:00 09/08/24 07:41 9 MLS/HR Vancomycin HCl 0 ml @ 0 mls/hr UD IV 09/06/24 16:00 Micafungin Sodium 100 mg/Sodium Chloride 100 ml @ 100 mls/hr DAILY IV 09/07/24 10:00 09/08/24 09:39 100 MLS/HR Sodium Chloride 1,000 ml @ 100 mls/hr Q10H IV 09/06/24 19:15 09/08/24 12:15 100 MLS/HR Phenylephrine HCl 80 mg/Sodium Chloride 250 ml @ 7.5 mls/hr Q24H IV 09/07/24 10:15 09/08/24 03:12 10.313 MLS/HR Norepinephrine Bitartrate 32 mg/ Sodium Chloride 250 ml @ 0.938 mls/ hr Q24H IV 09/07/24 10:15 09/08/24 06:07 10.313 MLS/HR Amino Acids 0 ml @ 0 mls/hr PER PHARMACY IV 09/08/24 15:45 Diagnostic Test (Pha) 1 strip Q6HR 09/08/24 18:00 09/08/24 17:28 1 STRIP Insulin Human Regular FOLLOW SLIDING SCALE Q6HR SC 09/08/24 18:00 09/08/24 17:29 8 UNITS Dextrose 50 ml UD IV 09/08/24 16:15 objective Gen.: Patient lying in bed in medical ICU. Sedated, intubated on mechanical ventilator. Head: Normocephalic, atraumatic. Eyes: PERRLA. Ears: Normal external anatomy. Throat: Endotracheal tube and orogastric tube in place. Neck: Supple, trachea midline. Chest: Transmitted breath sounds bilaterally. Decreased air entry bilaterally. No wheezing. Bibasilar crackles. Cardiovascular: Positive S1, positive S2. Regular rate and rhythm. Abdomen: Positive bowel sounds in all 4 quadrants. Soft, nontender, nondistended. : Kim in place. Normal external genitalia. Rectal: Deferred. Skin: Warm, dry. Intact. Extremities: 2+ radial pulses bilaterally. No lower extremity edema. Neuro: Sedated. laboratory and microbiology Laboratory Tests 09/08/24 08:40 09/08/24 03:46 Test 09/08/24 08:40 Range/Units Serum Glucose 248 #H 74-106 mg/dL Assessment/Plan Impression: Acute hypoxic respiratory failure On mechanical ventilator Massive left pleural effusion Atelectasis Coronary artery disease s/p PTCA Acute metabolic encephalopathy Right clavicle fracture Nicotine dependence Hemorrhagic shock Pneumonia GI hemorrhage Events: Currently on vent support Vent settings: PCV mode; RR 24; I-Pressure 15; I-time 0.72, PEEP 8, FiO2 30% Sedated on Versed/Fentanyl ABG reviewed, notable for acidemia d/t metabolic acidosis Head of bed elevation Aspiration precautions On multiple pressors for hemodynamic support Levophed 6 mcg/min, Rey-Synephrine 60 mcg/min and vasopressin 0.03 units/min Titrate to keep mean arterial pressure greater than 65 mmHg. Monitor hemoglobin Transfuse if less than 7.0 g/dL. Protonix drip Continue antibiotics Blood cultures show no growth after 48 hours Respiratory cultures show no growth Continue antifungal CXR demonstrates pulmonary congestion and edema. Pneumonia cannot be excluded. Left basilar atelectasis or pneumonia. Left pleural effusion. Continue to monitor chest tube output No air leak Diurese as tolerated w/ Lasix Monitor renal function. Monitor electrolytes. Supplement as necessary. Accu-Cheks, ISS. Monitor hemodynamics closely. Labs and imaging reviewed. Rest of plan as noted below. Plan: s/p intubation on mechanical ventilator. Vent settings: PCV mode; RR 24; I-Pressure 15; I-time 0.72, PEEP 8, FiO2 30% Titrate FIO2 to keep O2 saturation above 90%. VAP bundle. Daily ABG and CXR while intubated Sedated on Versed/Fentanyl On multiple pressors for hemodynamic support Titrate to keep mean arterial pressure greater than 65 mmHg S/p placement of left Mark chest tube on 09/02/24 - chest x-rays confirmed placement. See separate procedure note for details of procedure. Continue antibiotics Monitor hemoglobin Smoking cessation discussed for greater than 10 minutes Monitor renal function. Monitor electrolytes. Supplement as necessary. Monitor ins and outs. DVT prophylaxis. Prognosis: Poor given patient's multiple co-morbidities. Condition: Critical Rest of plan per hospitalist and other consultants. A total of 35 minutes of critical care time was spent reviewing the patient record, examining the patient, making a diagnostic and therapeutic plan, discussing this plan with the medical personnel, following up on diagnostic studies and following the patient for clinical stability excluding any and all procedures. At least 50% of this time was spent in direct, [id number] contact. Thank you Dr. Wells for allowing me to participate in this patient's care. Further recommendations will depend on the patient's clinical course. Please do not hesitate to contact me if you have any questions or concerns. This medical document was created using an electronic medical record system with [employer] dictation system. Although these documentations are being carefully reviewed, there may still be some phonetic and typographical changes. The errors are purely typographical, due to imperfection on the software program, and do not reflect any compromise in the patient's medical care. Dietary Evaluation Review Comments: 1) TPN to meet at least 75% estimated needs 2) Advance diet as medically feasible 3) Continue current plan of care Expected Outcomes/Goals: To meet >75% estimated needs FU 2-3 days Plan discussed with: Other (EDMUND Tidwell/Rosa) Critical Care Time(min): 35 HAYLEE BULLOCK MD Sep 08, 2024 22:02
--- NOTE | 2024-09-08 22:41 | DVHPN2 ---
Progress Note - Dictate Date Seen: Sep 08, 2024 Medical Necessity Reason Pt with a Central, PICC or Fol: Yes The following are medically ne: Kim Catheter Reason for kim catheter: Strict I&O Subjective No further GI bleeding reported Hemoglobin has trended down to 9.0 Patient is currently on IV Protonix IV pressors are being tapered Patient is currently on FiO2 40% with a PEEP of eight Patient has bilateral lung opacities suspected bilateral pneumonia and sepsis leukocytosis is slowly trending downwards He has been running hypotensive and low blood pressures requiring IV Levophed Initial CT chest had shown some dilated esophagus, pulmonary nodule and multiple mediastinal lymph nodes Patient has a left-sided chest tube that initially drained a lot however now the last drainage is only about 20 mL recorded vital signs Vital Sign Date Time Temp Pulse Resp B/P (MAP) Pulse Ox O2 Delivery O2 Flow Rate FiO2 09/08/24 22:23 93 24 106/52 (70) 98 30 09/08/24 18:00 Mechanical Ventilator+ 09/08/24 04:00 98.7 98.7 Total Intake and Output 09/07/24 09/07/24 09/08/24 15:00 23:00 07:00 Intake Total 2297.378 ml 1494.195 ml 1497.883 ml Output Total 2280 ml 1200 ml Balance 2297.378 ml -785.805 ml 297.883 ml medications Current Medications Medications Dose Ordered Sig/Imtiaz Route Start Time Stop Time Status Last Admin Dose Admin Nitroglycerin 0.4 mg Q5MINP PRN SL 09/01/24 14:15 Morphine Sulfate 2 mg Q30M PRN IV 09/01/24 14:15 Atorvastatin Calcium 20 mg HS PO 09/01/24 22:00 09/08/24 21:48 20 MG Metoprolol Tartrate 1.25 mg Q6HPRN PRN IV 09/01/24 14:15 Furosemide 40 mg DAILY IV 09/02/24 10:00 09/08/24 09:57 40 MG [place] Carbonate 300 mg BID PO 09/03/24 22:00 09/05/24 10:42 300 MG Risperidone 0.5 mg HS PO 09/04/24 22:00 09/07/24 22:03 0.5 MG Pantoprazole Sodium 50 ml @ 10 mls/hr Q5H IV 09/05/24 18:00 09/08/24 18:37 10 MLS/HR Acetaminophen 1,000 mg Q12H PRN IV 09/05/24 21:45 Midazolam HCl 50 ml @ 1 mls/hr Q24H IV 09/06/24 00:15 09/08/24 15:51 7 MLS/HR Fentanyl Citrate 250 ml @ 2.5 mls/hr Q24H IV 09/06/24 00:15 09/08/24 18:37 15 MLS/HR Vancomycin HCl 0 ml @ 0 mls/hr UD STAT IV 09/06/24 14:38 09/06/24 14:39 UNV Meropenem 50 ml @ 17 mls/hr Q8HR IV 09/06/24 22:00 09/08/24 21:47 17 MLS/HR Vasopressin 20 units/Sodium Chloride 100 ml @ 9 mls/hr Q11H7M IV 09/06/24 15:00 09/08/24 07:41 9 MLS/HR Vancomycin HCl 0 ml @ 0 mls/hr UD IV 09/06/24 16:00 Micafungin Sodium 100 mg/Sodium Chloride 100 ml @ 100 mls/hr DAILY IV 09/07/24 10:00 09/08/24 09:39 100 MLS/HR Sodium Chloride 1,000 ml @ 100 mls/hr Q10H IV 09/06/24 19:15 09/08/24 12:15 100 MLS/HR Phenylephrine HCl 80 mg/Sodium Chloride 250 ml @ 7.5 mls/hr Q24H IV 09/07/24 10:15 09/08/24 03:12 10.313 MLS/HR Norepinephrine Bitartrate 32 mg/ Sodium Chloride 250 ml @ 0.938 mls/ hr Q24H IV 09/07/24 10:15 09/08/24 06:07 10.313 MLS/HR Amino Acids 0 ml @ 0 mls/hr PER PHARMACY IV 09/08/24 15:45 Diagnostic Test (Pha) 1 strip Q6HR 09/08/24 18:00 09/08/24 17:28 1 STRIP Insulin Human Regular FOLLOW SLIDING SCALE Q6HR SC 09/08/24 18:00 09/08/24 17:29 8 UNITS Dextrose 50 ml UD IV 09/08/24 16:15 objective HEENT pupils are reactive Neck is supple CV is S1-S2 regular rate and rhythm Respiratory diminished breath sounds bases GI positive bowel sound Extremity no edema E[employer]ER intubated and sedated laboratory and microbiology Laboratory Tests 09/08/24 08:40 09/08/24 03:46 Test 09/08/24 08:40 Range/Units Serum Glucose 248 #H 74-106 mg/dL Problems(with codes): (1) Leukocytosis (2) Septic shock (3) Opacities of both lungs present on chest x-ray (4) GI bleed (5) Acute metabolic encephalopathy Prognosis Plan I will keep the patient NPO after midnight Monitor repeat labs I will re-evaluate him tomorrow to see if the patient is stable for an endoscopic evaluation Dietary Evaluation Review Comments: 1) TPN to meet at least 75% estimated needs 2) Advance diet as medically feasible 3) Continue current plan of care Expected Outcomes/Goals: To meet >75% estimated needs FU 2-3 days Plan discussed with: Other (None) HEAVEN GLASGOW MD Sep 08, 2024 22:41
[2024-09-09] VITALS (105 sets, daily range): BP systolic 79–202; BP diastolic 35–103; PULSE 53–93; RESP 20–25; TEMP 97.2–98.1; O2SAT 91–100
[2024-09-09 05:04] LABS: Eosinophils # (auto) 0.7 10 ^3/uL (0-0.8); Hematocrit 22.9 % (41.0-53.0); Hemoglobin 7.5 g/dL (13.5-17.5); Monocytes # (auto) 1.4 10 ^3/uL (0-1.3)
[2024-09-09 05:07] LABS: Basophils # (auto) 0.3 10 ^3/uL (0-0.2); Basophils % (auto) 1.1 % (0.0-2.0); Eosinophils % (auto) 3.2 % (0.0-7.0); Lymphocytes # (auto) 0.9 10 ^3/uL (0.4-5.4); Lymphocytes % (auto) 4.1 % (10.0-50.0); Mean Corpuscular Hemoglobin 29.2 pg (28.0-32.0); Mean Corpuscular Hgb Conc. 32.7 g/dL (32.0-36.0); Mean Corpuscular Volume 89.4 fL (80.0-100.0); Neutrophils # (auto) 19.6 10 ^3/uL (1.6-8.6); Neutrophils % (auto) 85.6 % (37.0-80.0); Nucleated Red Blood Cells % 0.1 %; Platelet Count (auto) 378 10^3/uL (140-450); Red Blood Cells 2.56 10^6/uL (4.5-5.90); Red Cell Distribution Width 13.6 % (11.8-14.3); White Blood Cell 22.9 10^3/uL (4.4-10.8)
[2024-09-09 05:32] LABS: Alkaline Phosphatase 106 U/L (46-116); Anion Gap 9 (5-15); Aspartate Aminotransferase 38 U/L (13-40); BUN/Creatinine Ratio 48.3 (10.0-20.0); Magnesium 2.1 mg/dL (1.6-2.6); Triglycerides 116 mg/dL (< 150)
[2024-09-09 05:33] LABS: Alanine Aminotransferase 48 U/L (7-40); Albumin 2.3 g/dL (3.2-4.8); Bilirubin, Total 0.3 mg/dL (0.2-1.0); Blood Urea Nitrogen 56 mg/dL (9-23); Calcium 7.8 mg/dL (8.7-10.4); Carbon Dioxide 18 mmol/L (20-31); Chloride 121 mmol/L (98-107); Glucose 259 mg/dL (74-106); Phosphorus 1.3 mg/dL (2.4-5.1); Potassium 3.5 mmol/L (3.5-5.1); Sodium 148 mmol/L (136-145); Total Protein 4.4 g/dL (5.7-8.2)
--- NOTE | 2024-09-09 06:28 | DVH ---
EXAM: XR Chest, 1 View CLINICAL INDICATION: RESPIRATORY FAILURE TECHNIQUE: Frontal view of the chest. COMPARISON: XY CHEST PORTABLE on DOS: 09/08/24, XY CHEST PORTABLE on DOS: 09/07/24, XY CHEST PORTABLE on DOS: 09/06/24, XY CHEST PORTABLE on DOS: 09/06/24, XY CHEST PORTABLE on DOS: 09/06/24 FINDINGS: LUNGS AND PLEURAL SPACES: Pulmonary congestion and edema. Pneumonia cannot be excluded. Bibasilar atelectasis or pneumonia. No pneumothorax. HEART: Unremarkable. No cardiomegaly. MEDIASTINUM: Unremarkable. Normal mediastinal contour. BONES/JOINTS: Unremarkable. No acute fracture. TUBES, LINES AND DEVICES: The endotracheal tube (ETT) is in satisfactory position. Enteric tube ti p cannot be seen but is below the diaphragm. Left internal jugular central venous catheter tip in th e superior vena cava. OTHER FINDINGS: . . . IMPRESSION: 1. Pulmonary congestion and edema. Pneumonia cannot be excluded. 2. Bibasilar atelectasis or pneumonia.
[2024-09-09 08:51] LABS: Base Excess -6.6 mmol/L (-2.0-3.0)
--- NOTE | 2024-09-09 09:13 | DVHPN2 ---
Progress Note - Dictate Date Seen: Sep 09, 2024 Medical Necessity Reason Pt with a Central, PICC or Fol: Yes The following are medically ne: Kim Catheter Reason for kim catheter: Strict I&O Subjective Mr. Vega it was 69 years old gentleman with a history of diabetes, dyslipidemia, coronary artery disease, bipolar disorder, he was brought to the [facility] on 09/01/2024 with a chief company of medical clinic falls, pain in the right shoulder, right hip, hip, and right arm numbness. I have seen and examined the patient, I have talked to his nurse, he was responsive to painful stimuli, Left pupil is slightly bigger, right: 4 mm. Left 4-5 mm Lenium, 09/07/2024: ABG, 09/05/24: Respiratory alkalosis. 09/06/2024: Metabolic acidosis, 09/07/2024, metabolic acidosis, hypoxia, 09/08/24: Metabolic acidosis, hypoxia WBC/HB/PLT/MCV, 09/08/2024: 34.8/9/398/9, 09/09/2024: 22.9/7.5/378/8.4 BUN/CR, 09/08/2024: 65/1.55 TBI/AST/ALT/AP, 09/08/2024: 0.3/39/66/99 TSH, 09/01/2024, 0.44 CXR, 09/08/2024: 1. Pulmonary congestion and edema. Pneumonia cannot be excluded. 2. Left basilar atelectasis or pneumonia. 3. Left pleural effusion. CT head, 09/01/2024: 1. No evidence of acute intracranial hemorrhage, mass effect or hydrocephalus. 2. Diffuse atrophy and chronic microvascular ischemic changes CT chest, 09/04/2024: 1. Limited evaluation given noncontrast technique. 2. Moderate left pleural effusion with scattered locules of air, slightly decreased in size compared to prior. 3. Pigtail drainage catheter terminates in the left lung base. 4. Multiple prominent mediastinal and pericardial nodes, nonspecific. 5. 0.5 cm left upper lobe pulmonary nodule. 6. Fluid-filled esophagus places the patient at risk for aspiration CTA chest, 09/02/2024: 1. No evidence of pulmonary embolism. 2. Moderate left hydropneumothorax. 3. Pulmonary edema and right pleural effusion. Correlation for congestive heart failure recommended. 4. 3.0 cm right thyroid nodule. Correlation with thyroid ultrasound is strongly recommended. 5. Mediastinal lymphadenopathy which may be metastatic. 6. Cardiomegaly.7. Lytic lesion in the distal right clavicle with pathologic fracture. This is concerning for a metastatic lesion. PET-CT recommended. 8. Acute appearing fracture through the sternum. vital signs Vital Sign Date Time Temp Pulse Resp B/P (MAP) Pulse Ox O2 Delivery O2 Flow Rate FiO2 09/09/24 08:36 62 24 98/50 (66) 98 30 09/09/24 06:00 Mechanical Ventilator+ 09/09/24 04:00 98.0 98.0 Total Intake and Output 09/08/24 09/08/24 09/09/24 15:00 23:00 07:00 Intake Total 1467.818 ml 1230.005 ml 1410.943 ml Output Total 1450 ml 950 ml Balance 1467.818 ml -219.995 ml 460.943 ml medications Current Medications Medications Dose Ordered Sig/Imtiaz Route Start Time Stop Time Status Last Admin Dose Admin Nitroglycerin 0.4 mg Q5MINP PRN SL 09/01/24 14:15 Morphine Sulfate 2 mg Q30M PRN IV 09/01/24 14:15 Atorvastatin Calcium 20 mg HS PO 09/01/24 22:00 09/08/24 21:48 20 MG Metoprolol Tartrate 1.25 mg Q6HPRN PRN IV 09/01/24 14:15 Furosemide 40 mg DAILY IV 09/02/24 10:00 09/08/24 09:57 40 MG [place] Carbonate 300 mg BID PO 09/03/24 22:00 09/05/24 10:42 300 MG Risperidone 0.5 mg HS PO 09/04/24 22:00 09/07/24 22:03 0.5 MG Pantoprazole Sodium 50 ml @ 10 mls/hr Q5H IV 09/05/24 18:00 09/09/24 05:28 10 MLS/HR Acetaminophen 1,000 mg Q12H PRN IV 09/05/24 21:45 Midazolam HCl 50 ml @ 1 mls/hr Q24H IV 09/06/24 00:15 09/08/24 22:54 6 MLS/HR Fentanyl Citrate 250 ml @ 2.5 mls/hr Q24H IV 09/06/24 00:15 09/08/24 18:37 15 MLS/HR Vancomycin HCl 0 ml @ 0 mls/hr UD STAT IV 09/06/24 14:38 09/06/24 14:39 UNV Meropenem 50 ml @ 17 mls/hr Q8HR IV 09/06/24 22:00 09/09/24 05:28 17 MLS/HR Vasopressin 20 units/Sodium Chloride 100 ml @ 9 mls/hr Q11H7M IV 09/06/24 15:00 09/09/24 05:28 9 MLS/HR Vancomycin HCl 0 ml @ 0 mls/hr UD IV 09/06/24 16:00 Micafungin Sodium 100 mg/Sodium Chloride 100 ml @ 100 mls/hr DAILY IV 09/07/24 10:00 09/08/24 09:39 100 MLS/HR Sodium Chloride 1,000 ml @ 100 mls/hr Q10H IV 09/06/24 19:15 09/08/24 22:54 100 MLS/HR Phenylephrine HCl 80 mg/Sodium Chloride 250 ml @ 7.5 mls/hr Q24H IV 09/07/24 10:15 09/09/24 04:02 10.313 MLS/HR Norepinephrine Bitartrate 32 mg/ Sodium Chloride 250 ml @ 0.938 mls/ hr Q24H IV 09/07/24 10:15 09/08/24 06:07 10.313 MLS/HR Amino Acids 0 ml @ 0 mls/hr PER PHARMACY IV 09/08/24 15:45 Diagnostic Test (Pha) 1 strip Q6HR 09/08/24 18:00 09/09/24 05:44 1 STRIP Insulin Human Regular FOLLOW SLIDING SCALE Q6HR SC 09/08/24 18:00 09/09/24 05:44 8 UNITS Dextrose 50 ml UD IV 09/08/24 16:15 objective The patient is well-nourished and well-developed with no distress. The patient is intubated MENTAL STATUS: Subjective CRANIAL NERVES: Pupils are round and slightly reactive reactive, left-sided slightly bigger.There are corneal reflexes and doll's eyes phenomenon. No signs of facial weakness. There are no gagging or coughing reflexes SENSATION: No responses to pain stimuli. MOTOR: Normal tone in the upper and lower extremity. Normal muscle bulk. No fasciculations. No spontaneous movement. REFLEXES: Deep tendon reflexes are symmetrical. No pathological reflexes. CEREBELLAR/COORDINATION: Deferred GAIT/STATION: deferred laboratory and microbiology Laboratory Tests 09/09/24 04:43 Test 09/09/24 04:43 Range/Units Serum Glucose 259 H 74-106 mg/dL Problem List Anisocoria, uncertain clinical significance Coma Metabolic acidosis Hypoxic acidosis Toxic acidosis Sepsis, septic shock Pleural effusion status post thoracentesis GI bleeding Multiple falls Psychosis Assessment/Plan Monitoring Supportive treatment ICU care MRA neck Follow-up lab Stabilize vitals Respiratory support/vent management Oxygen IV antibiotics Pantoprazole This medical document was created using an electronic medical record system with [employer] dictation system. Although this document has been carefully reviewed, there may still be some phonetic and typographical errors. These areas are purely typographical due to imperfections of the software programs, and do not reflect any compromise in the patient's medical care. Prognosis guarded Dietary Evaluation Review Comments: 1) TPN to meet at least 75% estimated needs 2) Advance diet as medically feasible 3) Continue current plan of care Expected Outcomes/Goals: To meet >75% estimated needs FU 2-3 days Plan discussed with: Other Critical Care Time(min): 35 RESHMA BOWIE MD Sep 09, 2024 09:13
[2024-09-09] MEDS: POTASSIUM PHOSPHATE 44 MEQ in D5W 5% 250 ML IV ONE (13:44)
[2024-09-09] MEDS: VANCOMYCIN 500mg/100mL 100 ML IV ONE (15:13)
[2024-09-09] MEDS: PHENYLEPHRINE INJ 80 MG in SODIUM CHL 0.9% 242 ML IV SCH (15:30)
--- NOTE | 2024-09-09 15:57 | DVHPN2 ---
Progress Note - Dictate Date Seen: Sep 09, 2024 Medical Necessity Reason Pt with a Central, PICC or Fol: Yes The following are medically ne: Kim Catheter Reason for kim catheter: Strict I&O Subjective Patient has anisocoria, neurology is evaluating the patient Patient is on pressors. Patient remains critical pulses remain guarded. vital signs Vital Sign Date Time Temp Pulse Resp B/P (MAP) Pulse Ox O2 Delivery O2 Flow Rate FiO2 09/09/24 15:51 72 24 136/66 (89) 96 30 09/09/24 14:55 97.7 97.7 09/09/24 12:00 Mechanical Ventilator+ Total Intake and Output 09/08/24 09/08/24 09/09/24 14:59 22:59 06:59 Intake Total 1479.881 ml 1176.817 ml 1619.194 ml Output Total 1450 ml 950 ml Balance 1479.881 ml -273.183 ml 669.194 ml medications Current Medications Medications Dose Ordered Sig/Imtiaz Route Start Time Stop Time Status Last Admin Dose Admin Nitroglycerin 0.4 mg Q5MINP PRN SL 09/01/24 14:15 Morphine Sulfate 2 mg Q30M PRN IV 09/01/24 14:15 Atorvastatin Calcium 20 mg HS PO 09/01/24 22:00 09/08/24 21:48 20 MG Metoprolol Tartrate 1.25 mg Q6HPRN PRN IV 09/01/24 14:15 Furosemide 40 mg DAILY IV 09/02/24 10:00 09/09/24 10:13 40 MG Risperidone 0.5 mg HS PO 09/04/24 22:00 09/07/24 22:03 0.5 MG Acetaminophen 1,000 mg Q12H PRN IV 09/05/24 21:45 Midazolam HCl 50 ml @ 1 mls/hr Q24H IV 09/06/24 00:15 09/08/24 22:54 6 MLS/HR Fentanyl Citrate 250 ml @ 2.5 mls/hr Q24H IV 09/06/24 00:15 09/09/24 10:17 15 MLS/HR Vancomycin HCl 0 ml @ 0 mls/hr UD STAT IV 09/06/24 14:38 09/06/24 14:39 UNV Meropenem 50 ml @ 17 mls/hr Q8HR IV 09/06/24 22:00 09/09/24 14:25 17 MLS/HR Vasopressin 20 units/Sodium Chloride 100 ml @ 9 mls/hr Q11H7M IV 09/06/24 15:00 09/09/24 05:28 9 MLS/HR Vancomycin HCl 0 ml @ 0 mls/hr UD IV 09/06/24 16:00 Micafungin Sodium 100 mg/Sodium Chloride 100 ml @ 100 mls/hr DAILY IV 09/07/24 10:00 09/09/24 10:13 100 MLS/HR Sodium Chloride 1,000 ml @ 100 mls/hr Q10H IV 09/06/24 19:15 09/08/24 22:54 100 MLS/HR Norepinephrine Bitartrate 32 mg/ Sodium Chloride 250 ml @ 0.938 mls/ hr Q24H IV 09/07/24 10:15 09/08/24 06:07 10.313 MLS/HR Amino Acids 0 ml @ 0 mls/hr PER PHARMACY IV 09/08/24 15:45 Diagnostic Test (Pha) 1 strip Q6HR 09/08/24 18:00 09/09/24 12:11 1 STRIP Insulin Human Regular FOLLOW SLIDING SCALE Q6HR SC 09/08/24 18:00 09/09/24 12:10 3 UNITS Dextrose 50 ml UD IV 09/08/24 16:15 Fat Emulsion Intravenous 50 ml/ Potassium Acetate 10 meq/Magnesium Sulfate 4 meq/ Multivitamins 10 ml/Chromium/ Copper/Manganese/ Zinc 1 ml/Insulin Human Regular 6 units/Amino Acids/ Dextrose 967.06 ml @ 40 mls/hr [id number] IV 09/09/24 22:00 09/10/24 21:59 Pantoprazole Sodium 40 mg BID IV 09/09/24 22:00 Phenylephrine HCl 80 mg/Sodium Chloride 250 ml @ 7.5 mls/hr Q24H IV 09/09/24 15:30 UNV objective Gen.: Patient is intubated. Head: Normocephalic, atraumatic. Eyes: anisocoria Ears: Normal hearing. Normal anatomy. Neck/trachea: Trachea midline, supple. Nose: Normal external anatomy. Mouth: ET tube + Chest: Decreased air entry bilaterally. No wheezing or rhonchi. pig tail + Cardiovascular: Positive S1, positive S2. Regular rate and rhythm. Abdomen: Positive bowel sounds in all 4 quadrants. Soft, non-tender, non- distended. Skin: Warm, dry. Intact. Extremities: 2+ radial pulses bilaterally. No lower extremity edema. Neuro: Intubated and Sedated. laboratory and microbiology Laboratory Tests 09/09/24 04:43 Test 09/09/24 04:43 Range/Units Serum Glucose 259 H 74-106 mg/dL Assessment/Plan Patient is a 69-year-old male with: anisocoria Coma Severe septic shock on multiple pressors GI bleed with hemorrhagic shock Left lung pneumonia Acute hypoxic respiratory failure on MV Left hydropneumothorax with chest tube Lytic lesion on right clavicle : concern for metastatic disease lactic acidosis EUN metobolic acidosis CHFE Recommendations Anisocoria, Neurology is evaluating the patient with CT head, EEG Patient is intubated and on multiple pressors. Maxed out of Levophed, phenyl ephrine and vasopressin Reviewed 2 sets of blood culture, showed no growth Gentamicin x1 on 09/06 Continue IV Vancomycin/ Meropenem/ Micafungin for now CT chest/ abdomen/ pelvis is ordered 09/09, Vancomycin random is 13.5. WBC trending down Blood cultures from 09/06 shows no growth fluid cultures shows no growth Has chest tube he is s/p 1 unit blood transfusion. blood thinner is on hold prognosis is very critical Critical 35 minutes spent during encounter, coordinated the care Thank you for consult Dietary Evaluation Review Comments: 1) TPN to meet at least 75% estimated needs 2) Advance diet as medically feasible 3) Continue current plan of care Expected Outcomes/Goals: To meet >75% estimated needs FU 2-3 days Plan discussed with: Other JAYASHREE CHOWDARY MD Sep 09, 2024 15:56
--- NOTE | 2024-09-09 17:45 | DVH ---
EXAM: CT HEAD WITHOUT CONTRAST; DATE: 09/09/2024 04:19 PM HISTORY: EPISODE OF UNRESPONSIVENESS; EYES TO LEFT X 2 MINUTES COMPARISON: CT HEAD WITHOUT CONTRAST on DOS: 09/01/24 TECHNIQUE: Axial images were obtained and reformatted in coronal and sagittal planes. All CT scans at this medical facility are performed using dose modulation techniques as appropriate t o a performed exam including the following: Automated exposure control was utilized; adjustment of th e MA and/or KV according to patient size; and use of iterative reconstruction technique. CT Dose: CTDI volume is 59.23 mGy. Dose-length product is 1285.57 mGy*cm FINDINGS: Supratentorial Region: No evidence for large acute territorial ischemia. There is asymmetric interv al enlargement of the subdural hygroma on the left side now measuring 15 mm in transverse, previously 10 mm with approximately 10 mm [id number] midline shift Posterior Fossa: No acute abnormality. Brainstem: Unremarkable. Sellar/Suprasellar Region: Unremarkable. Ventricles, Cisterns, Sulci: Age-appropriate. Orbits: Unremarkable. Paranasal Sinuses: Unremarkable. Mastoid Air Cells: Unremarkable. Vasculature: Unremarkable. Bones/Soft Tissues: No acute abnormality. Other: None. IMPRESSION: 1. Asymmetric interval enlargement of subdural hygroma on the left side now measuring 15 mm in transv erse, previously 10 mm with resultant 10 mm miqi-zf-jeunk midline shift and associated subfalcine her niation. No acute intracranial hemorrhage noted. Critical Result: Stroke Alert Findings discussed with EDMUND Tidwell at 09/09/2024 05:37 PM. He will immediately notify of the neurologis t on-call. ..
--- NOTE | 2024-09-09 19:09 | DVHPN2 ---
Progress Note - Dictate Date Seen: Sep 09, 2024 Medical Necessity Reason Pt with a Central, PICC or Fol: Yes The following are medically ne: Kim Catheter Reason for kim catheter: Strict I&O Subjective Patient seen and examined at bedside. Sedated, intubated on mechanical ventilator. Overnight events reviewed. vital signs Vital Sign Date Time Temp Pulse Resp B/P (MAP) Pulse Ox O2 Delivery O2 Flow Rate FiO2 09/09/24 18:31 56 24 123/58 (79) 94 30 09/09/24 18:31 Mechanical Ventilator+ 09/09/24 16:00 97.7 207.9 Total Intake and Output 09/08/24 09/08/24 09/09/24 15:00 23:00 07:00 Intake Total 1467.818 ml 1230.005 ml 1595.943 ml Output Total 1450 ml 950 ml Balance 1467.818 ml -219.995 ml 645.943 ml medications Current Medications Medications Dose Ordered Sig/Imtiaz Route Start Time Stop Time Status Last Admin Dose Admin Nitroglycerin 0.4 mg Q5MINP PRN SL 09/01/24 14:15 Morphine Sulfate 2 mg Q30M PRN IV 09/01/24 14:15 Atorvastatin Calcium 20 mg HS PO 09/01/24 22:00 09/08/24 21:48 20 MG Metoprolol Tartrate 1.25 mg Q6HPRN PRN IV 09/01/24 14:15 Furosemide 40 mg DAILY IV 09/02/24 10:00 09/09/24 10:13 40 MG Risperidone 0.5 mg HS PO 09/04/24 22:00 09/07/24 22:03 0.5 MG Acetaminophen 1,000 mg Q12H PRN IV 09/05/24 21:45 Midazolam HCl 50 ml @ 1 mls/hr Q24H IV 09/06/24 00:15 09/08/24 22:54 6 MLS/HR Fentanyl Citrate 250 ml @ 2.5 mls/hr Q24H IV 09/06/24 00:15 09/09/24 10:17 15 MLS/HR Vancomycin HCl 0 ml @ 0 mls/hr UD STAT IV 09/06/24 14:38 09/06/24 14:39 UNV Meropenem 50 ml @ 17 mls/hr Q8HR IV 09/06/24 22:00 09/09/24 14:25 17 MLS/HR Vasopressin 20 units/Sodium Chloride 100 ml @ 9 mls/hr Q11H7M IV 09/06/24 15:00 09/09/24 16:01 9 MLS/HR Vancomycin HCl 0 ml @ 0 mls/hr UD IV 09/06/24 16:00 Micafungin Sodium 100 mg/Sodium Chloride 100 ml @ 100 mls/hr DAILY IV 09/07/24 10:00 09/09/24 10:13 100 MLS/HR Sodium Chloride 1,000 ml @ 100 mls/hr Q10H IV 09/06/24 19:15 09/08/24 22:54 100 MLS/HR Norepinephrine Bitartrate 32 mg/ Sodium Chloride 250 ml @ 0.938 mls/ hr Q24H IV 09/07/24 10:15 09/08/24 06:07 10.313 MLS/HR Amino Acids 0 ml @ 0 mls/hr PER PHARMACY IV 09/08/24 15:45 Diagnostic Test (Pha) 1 strip Q6HR 09/08/24 18:00 09/09/24 18:00 1 STRIP Insulin Human Regular FOLLOW SLIDING SCALE Q6HR SC 09/08/24 18:00 09/09/24 18:52 12 UNITS Dextrose 50 ml UD IV 09/08/24 16:15 Fat Emulsion Intravenous 50 ml/ Potassium Acetate 10 meq/Magnesium Sulfate 4 meq/ Multivitamins 10 ml/Chromium/ Copper/Manganese/ Zinc 1 ml/Insulin Human Regular 6 units/Amino Acids/ Dextrose 967.06 ml @ 40 mls/hr [id number] IV 09/09/24 22:00 09/10/24 21:59 Pantoprazole Sodium 40 mg BID IV 09/09/24 22:00 Phenylephrine HCl 80 mg/Sodium Chloride 250 ml @ 7.5 mls/hr Q24H IV 09/09/24 15:30 objective Gen.: Patient lying in bed in medical ICU. Sedated, intubated on mechanical ventilator. Head: Normocephalic, atraumatic. Eyes: PERRLA. Ears: Normal external anatomy. Throat: Endotracheal tube and orogastric tube in place. Neck: Supple, trachea midline. Chest: Transmitted breath sounds bilaterally. Decreased air entry bilaterally. No wheezing. Bibasilar crackles. Cardiovascular: Positive S1, positive S2. Regular rate and rhythm. Abdomen: Positive bowel sounds in all 4 quadrants. Soft, nontender, nondistended. : Kim in place. Normal external genitalia. Rectal: Deferred. Skin: Warm, dry. Intact. Extremities: 2+ radial pulses bilaterally. No lower extremity edema. Neuro: Sedated. laboratory and microbiology Laboratory Tests 09/09/24 04:43 Test 09/09/24 04:43 Range/Units Serum Glucose 259 H 74-106 mg/dL Assessment/Plan Impression: Acute hypoxic respiratory failure On mechanical ventilator Massive left pleural effusion Atelectasis Coronary artery disease s/p PTCA Acute metabolic encephalopathy Right clavicle fracture Nicotine dependence Hemorrhagic shock Pneumonia GI hemorrhage Events: Currently on vent support Vent settings: PCV mode; RR 24; I-Pressure 15; I-time 0.72, PEEP 8, FiO2 30% Sedated on Versed/Fentanyl ABG reviewed, notable for alkalemia Head of bed elevation Aspiration precautions On multiple pressors for hemodynamic support On Levophed and vasopressin Titrate to keep mean arterial pressure greater than 65 mmHg. Monitor hemoglobin Transfuse if less than 7.0 g/dL. Protonix drip Continue antibiotics Blood cultures show no growth after 72 hours Continue antifungal Continue to monitor chest tube output No air leak Diurese as tolerated w/ Lasix Monitor renal function. Monitor electrolytes. Supplement as necessary. Accu-Cheks, ISS. Monitor hemodynamics closely. Labs and imaging reviewed. Rest of plan as noted below. Plan: s/p intubation on mechanical ventilator. Vent settings: PCV mode; RR 24; I-Pressure 15; I-time 0.72, PEEP 8, FiO2 30% Titrate FIO2 to keep O2 saturation above 90%. VAP bundle. Daily ABG and CXR while intubated Sedated for vent synchrony On multiple pressors for hemodynamic support Titrate to keep mean arterial pressure greater than 65 mmHg S/p placement of left Mark chest tube on 09/02/24 - chest x-rays confirmed placement. See separate procedure note for details of procedure. Continue antibiotics Monitor hemoglobin Smoking cessation discussed for greater than 10 minutes Monitor renal function. Monitor electrolytes. Supplement as necessary. Monitor ins and outs. DVT prophylaxis. Prognosis: Poor given patient's multiple co-morbidities. Condition: Critical Rest of plan per hospitalist and other consultants. A total of 35 minutes of critical care time was spent reviewing the patient record, examining the patient, making a diagnostic and therapeutic plan, discussing this plan with the medical personnel, following up on diagnostic studies and following the patient for clinical stability excluding any and all procedures. At least 50% of this time was spent in direct, [id number] contact. Thank you Dr. Wells for allowing me to participate in this patient's care. Further recommendations will depend on the patient's clinical course. Please do not hesitate to contact me if you have any questions or concerns. This medical document was created using an electronic medical record system with [employer] dictation system. Although these documentations are being carefully reviewed, there may still be some phonetic and typographical changes. The errors are purely typographical, due to imperfection on the software program, and do not reflect any compromise in the patient's medical care. Dietary Evaluation Review Comments: 1) TPN to meet at least 75% estimated needs 2) Advance diet as medically feasible 3) Continue current plan of care Expected Outcomes/Goals: To meet >75% estimated needs FU 2-3 days Plan discussed with: Other (RN) Critical Care Time(min): 35 HAYLEE BULLOCK MD Sep 09, 2024 19:09
--- NOTE | 2024-09-09 19:24 | DVHDS2 ---
Discharge Summary Date of Admission Sep 01, 2024 at 14:06 Date of Discharge: Sep 09, 2024 Labs/Diagnostic Data: Laboratory Results Test 09/09/24 18:46 09/09/24 08:40 09/09/24 04:43 09/08/24 03:46 POC Glucose 269 mg/dl (70-106) Blood Gas Specimen Type Arterial Blood Gas Sample Site Arterial line Blood Gas Patient Temperature 37.0 Arterial Blood Date Drawn [id number] Arterial Blood pH 7.465 (7.350-7.450) Arterial Blood Partial Pressure CO2 23.0 mmHg (35.0-48.0) Arterial Blood Partial Pressure O2 70.5 mmHg (83.0-108.0) Arterial Blood HCO3 16.2 mmol/L (21.0-28.0) Arterial Blood Oxygen Saturation 93.8 % (94.0-98.0) Arterial Blood Base Excess -6.6 mmol/L (-2.0-3.0) Arterial Blood Oxyhemoglobin 93.1 % (94.0-98.0) Arterial Blood Carboxyhemoglobin 0.3 % (0.5-1.5) Arterial Blood Methemoglobin 0.4 % (0.0-1.5) Ezekiel Test N/a Blood Gas Total Hemoglobin 8.00 g/dL (13.5-17.5) Blood Gas Set Respiration Rate 24.0 Blood Gas Modality Vent - p/c FiO2 % 30.0 Blood Gas Inspiratory Pressure 24.0 Blood Gas PEEP or CPAP 8.0 Blood Gas Comments White Blood Count 22.9 10^3/uL (4.4-10.8) Red Blood Count 2.56 10^6/uL (4.5-5.90) Hemoglobin 7.5 g/dL (13.5-17.5) Hematocrit 22.9 % (41.0-53.0) Mean Corpuscular Volume 89.4 fL (80.0-100.0) Mean Corpuscular Hemoglobin 29.2 pg (28.0-32.0) Mean Corpuscular Hemoglobin Concent 32.7 g/dL (32.0-36.0) Red Cell Distribution Width 13.6 % (11.8-14.3) Platelet Count 378 10^3/uL (140-450) Mean Platelet Volume 7.2 fL (6.9-10.8) Neutrophils (%) (Auto) 85.6 % (37.0-80.0) Lymphocytes (%) (Auto) 4.1 % (10.0-50.0) Monocytes (%) (Auto) 6.0 % (0.0-12.0) Eosinophils (%) (Auto) 3.2 % (0.0-7.0) Basophils (%) (Auto) 1.1 % (0.0-2.0) Neutrophils # (Auto) 19.6 10 ^3/uL (1.6-8.6) Lymphocytes # (Auto) 0.9 10 ^3/uL (0.4-5.4) Monocytes # (Auto) 1.4 10 ^3/uL (0-1.3) Eosinophils # (Auto) 0.7 10 ^3/uL (0-0.8) Basophils # (Auto) 0.3 10 ^3/uL (0-0.2) Nucleated Red Blood Cells 0.1 % Sodium Level 148 mmol/L (136-145) Potassium Level 3.5 mmol/L (3.5-5.1) Chloride Level 121 mmol/L (98-107) Carbon Dioxide Level 18 mmol/L (20-31) Anion Gap 9 (5-15) Blood Urea Nitrogen 56 mg/dL (9-23) Creatinine 1.16 mg/dL (0.700-1.30) Glomerular Filtration Rate Calc 68 mL/min (>90) BUN/Creatinine Ratio 48.3 (10.0-20.0) Serum Glucose 259 mg/dL (74-106) Calcium Level 7.8 mg/dL (8.7-10.4) Phosphorus Level 1.3 mg/dL (2.4-5.1) Magnesium Level 2.1 mg/dL (1.6-2.6) Total Bilirubin 0.3 mg/dL (0.2-1.0) Aspartate Amino Transferase (AST) 38 U/L (13-40) Alanine Aminotransferase (ALT) 48 U/L (7-40) Alkaline Phosphatase 106 U/L (46-116) Total Protein 4.4 g/dL (5.7-8.2) Albumin 2.3 g/dL (3.2-4.8) Triglycerides Level 116 mg/dL (< 150) Random Vancomycin Level 13.5 ug/mL (5-10) Differential Total Cells Counted 100.0 (100) Neutrophils % (Manual) 89 (37.0-80.0) Band Neutrophils % (Manual) 3 Lymphocytes % (Manual) 4 (10.0-50.0) Monocytes % (Manual) 3 (0-12) Eosinophils % (Manual) 0 (0-7) Basophils % (Manual) 0 (0.0-2.0) Metamyelocytes % (manual) 1 Myelocytes % (Manual) 0 Promyelocytes % (Manual) 0 Blast Cells % (Manual) 0 Reactive Lymphocytes 0 Platelet Estimate Adequate Test 09/07/24 12:53 09/07/24 10:34 09/07/24 03:35 09/06/24 16:35 Blood Gas Spontaneous Rate 24 Blood Gas Spontaneous Tidal Volume 588 Blood Gas Critical Value Read Back Yes Blood Gas Notified Whom Dr. tamez Blood Gas Notified Time [id number] Blood Gas Notified By Monisha jones rt. Blood Gas Tidal Volume 400.0 Random Gentamicin Level 8.2 ug/mL (0-5) [place] Level 0.4 mmol/L (0.5-1.2) Anisocytosis (manual) Slight Test 09/06/24 10:30 09/05/24 23:47 09/05/24 21:37 09/05/24 09:45 Prothrombin Time 11.6 sec (9.3-11.8) Prothrombin Time INR 1.11 (0.9-1.15) Activated Partial Thromboplast Time 28.3 SEC (24.5-34.5) Blood Gas Liter Flow 4.00 Lactic Acid Level 4.5 mmol/L (0.4-2.0) Vancomycin Level Trough 8.8 ug/mL (5-10) Test 09/02/24 10:49 09/01/24 15:10 09/01/24 14:14 09/01/24 13:12 Body Fluid Source Pleural fluid Body Fluid pH 9.0 Body Fluid WBC (Manual) 311 CUMM (0-200) Body Fluid RBC (Manual) 09974 CUMM (0-2000) Body Fluid Mononuclear Cells 79 % Body Fluid Polymorphonuclear Cells 21 % (0-25) Body Fluid Glucose 139 mg/dL (.) Body Fluid Total Protein 3.3 g/dL (.) Body Fluid Lactate Dehydrogenase 544 IU/L (.) Troponin I High Sensitivity < 3 ng/L (</=54) Thyroid Stimulating Hormone (TSH) 0.44 uIU/mL (0.55-4.78) Free Thyroxine (T4) Calculated 1.31 ng/dL (0.89-1.76) Test 09/01/24 08:21 B-Type Natriuretic Peptide 26.30 pg/mL (0-100) Other Laboratory Tests 09/09/24 04:43 Brief Hx & Hospital Course: 69-year-old male with a known history of CAD status post PCI, hypertension, d yslipidemia who initially presented to the hospital with multiple falls found to have , found to have pleural effusion status post pigtail catheter placement. Patient was was being managed on the telemetry floor. Patient was hospital course was eventful for acute GI bleeding this melanotic stools requiring Protonix drip and intubation and sedation. Patient was transferred to ICU currently on mechanical ventilation. Patient was requiring multiple vasopressors with elevated white count diagonal with hemorrhagic shock as well as septic shock. Patient currently on multiple antibiotics has been. Patient was being followed by Pulmonary Infectious Disease GI. Patient was hospital course was eventful for anisocoria requiring CT head which shows evidence of subdural hygroma with midline shift with subfalcine herniation. Neurology recommended urgent neurosurgical intervention which was ordered. Social service has been consulted for stat Neurosurgery intervention at higher level of care. I called patient was Karen at [phone] she did not excelsior picker the phone. I got the of the number from bedside RN Darren who has a daughter Lucy at [phone], all the prognosis critical illness was explained to the patient was daughter Lucy and I explained her the reason for higher level of care has been do not have neurosurgery department. She agrees to current plan of care. 1. Acute hypoxic respiratory failure requiring intubation on mechanical ventilation 2. Hemorrhagic shock requiring multiple vasopressors 3. Acute GI bleed with melanotic stools, currently on Protonix drip, GI consultation for evaluation of EGD 4. Left-sided massive pleural effusion status post pigtail catheter placement 5. Acute metabolic encephalopathy with underlying psychiatric disorder 6. Mood disorder currently on lithium 7. Right clavicle fracture status post sling support, conservative management as per orthopedics 8. CAD status post LAD stents 9. Anisocoria rule out acute BELL HOLE DIGGER pathology next Condition at Discharge: Critical Final Diagnosis/Problems List 69-year-old male with a known history of CAD status post PCI, hypertension, dyslipidemia who initially presented to the hospital with multiple falls found to have , found to have pleural effusion status post pigtail catheter placement. 1. Acute hypoxic respiratory failure requiring intubation on mechanical ventilation 2. Hemorrhagic shock requiring multiple vasopressors 3. Acute GI bleed with melanotic stools, currently on Protonix drip, status post EGD currently report is pending 4. Left-sided massive pleural effusion status post pigtail catheter placement 5. Acute metabolic encephalopathy with underlying psychiatric disorder 6. Mood disorder currently on lithium 7. Right clavicle fracture status post sling support, conservative management as per orthopedics 8. CAD status post LAD stents 9. Anisocoria with the subdural hygroma with a midline shift/subfalcine herniation, Discharge Disposition: Acute Care Facility SNF Discharge Will this Physician continue t: No Discharge Instruct/Medications Diet: See Comment Diet comment: On TPN Activity: See Comment Activity comment: Bedrest Follow Up/Referral: Follow up at higher level of care for neurosurgery intervention Medications: As reconciled Discharge Statement: "Patient was advised to return to the ER or call 911 if any headaches, dizziness, shortness of breath, chest pain, abdominal pain, bleeding, fevers, or worsening of medical condition. Patient was counseled about treatment plan, medications, possible side effects, patientverbalized understanding. All questions were answered to the best of my ability. This discharge took greater then 30 minutes in planning, reviewing documentation, counseling the patient, and discussing with other team members." ASSESSMENT ASSESSMENT Assessment 69-year-old male with a known history of CAD status post PCI, hypertension, dyslipidemia who initially presented to the hospital with multiple falls found to have , found to have pleural effusion status post pigtail catheter placement. 1. Acute hypoxic respiratory failure requiring intubation on mechanical ventilation 2. Hemorrhagic shock requiring multiple vasopressors 3. Acute GI bleed with melanotic stools, currently on Protonix drip, status post EGD currently report is pending 4. Left-sided massive pleural effusion status post pigtail catheter placement 5. Acute metabolic encephalopathy with underlying psychiatric disorder 6. Mood disorder currently on lithium 7. Right clavicle fracture status post sling support, conservative management as per orthopedics 8. CAD status post LAD stents 9. Anisocoria with the subdural hygroma with a midline shift/subfalcine herniation, Date of Service: Sep 09, 2024 Billing Provider: BRYSON SMITH MD Common Visit Codes: NOT BILLABLE BRYSON SMITH MD Sep 09, 2024 19:24
--- NOTE | 2024-09-09 19:36 | DVHOP2 ---
Operative Report DATE OF OPERATION: 09/09/24 PROCEDURE: Upper Endoscopy with biopsy. PREOPERATIVE INDICATION: The patient is a 69 -year-old male undergoing endoscopy for upper GI bleed POSTOPERATIVE DIAGNOSES: 1. Patient had a 5 cm segment of proximal esophageal stricture with ulceration between 20-25 cm from which biopsies were obtained; 2. There was a 2 cm sliding-type hiatal hernia with grade A to B erosive esophagitis from which biopsies were obtained 3. Mild gastritis otherwise normal examination up to the 2nd and 3rd part of the duodenum PROCEDURE PERFORMED BY: Heaven Charles GI NURSE: Yobany SCOPE: Olympus videoendoscope. ASA CLASS: 3 PREOPERATIVE MEDICATIONS: Patient was previously intubated sedated PROCEDURE IN DETAIL: After obtaining an informed consent, the patient was placed on left lateral decubitus position. The patient was then sedated with the above medications. A bite block was placed between his teeth. The endoscope was then passed through the oropharynx, into the esophagus, and through the stomach and pylorus up to the second and third part of the duodenum. The endoscope was then withdrawn. The 2nd and 3rd part of the duodenum and the duodenal bulb were normal. Duodenal biopsies were obtained . There was no fresh or old blood in the upper GI tract The pre-pyloric area antrum and body showed mild gastritis. Gastric biopsies were obtained. On retroflexion the fundus and cardia were normal. The endoscope was then withdrawn into the distal esophagus. Patient had a 2 cm sliding-type hiatal hernia with grade a to B erosive esophagitis and GE junction biopsies were obtained In the proximal esophagus just below the upper esophageal sphincter area extending from about it to 2024 cm there was a esophageal inflammatory stricture with ulceration of unclear etiology This could be a site of food impaction that could lead to aspiration. Biopsies were obtained to rule out any esophageal squamous cell malignancy The oropharynx was otherwise normal. The patient tolerated the procedure well without difficulty. COMPLICATIONS : None SPECIMENS: Duodenal biopsies Gastric biopsies GE junction biopsies Proximal esophageal stricture biopsies DISPOSITION: Stable Continue to monitor in ICU PLAN: 1. Await for biopsy result 2. Will place pt on Protonix 40 mg bid IV 3. Okay to insert NG tube and start enteral tube feedings 4. CT scan of the abdomen pelvis and chest when the patient can be mobilized to the CT scanner 5. Discussed with ICU nurse HEAVEN CHARLES MD Sep 09, 2024 19:36
--- NOTE | 2024-09-09 19:48 | DVH ---
Exam: CT CHST AB PEL WO CON-NO IV/ORAL History: esophageal stricture Comparison Study: None Contrast: None TECHNIQUE: Multidetector CT of chest abdomen pelvis without IV contrast. Radiation Dose Information: CT Dose: CTDI volume is 22.42 mGy. Dose-length product is 1633.18 mGy*cm FINDINGS: There are bilateral pleural effusions largest is on the left side pleural effusions appear to be comp len there are air bronchograms in the left lung base and left pleural effusion may be an empyema. The re is pigtail catheter in the effusion there soft tissue strands in the effusion with again suggestin g possibly organized empyema. Heart size is normal there are calcifications seen in the left anterio r descending coronary artery. There appears to be a breakdown in the posterior cortex of the sternum and there does appear to be a sternal fracture this is seen on sagittal image 83. Patient has an umbilical hernia filled with fat. There is an endotracheal tube and nasogastric tube n asogastric tube is in the stomach. There is anasarca there are multiple mediastinal lymph nodes large st is in the anterior superior mediastinal fat measuring 2 x 1 cm There is bilateral perinephric stranding. Left adrenals unremarkable and there is a low-density nodul e involving the right adrenal measuring 2.3 cm in length in the nodule is too dense to the consider a n adenoma. There is significant anasarca. Patient has a rectal tube and also a Dutta catheter there are minimal fluid seen pooling in the pelvis no evidence for gastrointestinal obstruction. Liver and spleen are n ormal size. IMPRESSION: Bilateral effusions possible organizing empyema involving the left lung base. There is 2.3 cm nodule involving the right adrenal which is not definitely an adenoma. There is anas arca with perinephric stranding but no evidence for obstruction of the gastrointestinal tract. There significant adenopathy involving the mediastinum.
[2024-09-09] MEDS: SODIUM CHLORIDE 0.9% 1,000 ML IV SCH (20:44)
[2024-09-09] MEDS: PANTOPRAZOLE 40 MG/10 ML VIAL INJ IV SCH (21:31)
[2024-09-09] MEDS: TPN PER PHARMACY IV NR (22:21)
[2024-09-10] VITALS (92 sets, daily range): BP systolic 81–152; BP diastolic 49–88; PULSE 87–116; RESP 11–31; TEMP 97.5–99.5; O2SAT 92–100
[2024-09-10 03:50] LABS: Hematocrit 30.9 % (41.0-53.0); Hemoglobin 10.1 g/dL (13.5-17.5); Mean Corpuscular Hemoglobin 28.4 pg (28.0-32.0); Mean Corpuscular Hgb Conc. 32.6 g/dL (32.0-36.0); Mean Corpuscular Volume 87.3 fL (80.0-100.0); Platelet Count (auto) 409 10^3/uL (140-450); Red Blood Cells 3.54 10^6/uL (4.5-5.90); Red Cell Distribution Width 14.4 % (11.8-14.3)
[2024-09-10 04:06] LABS: Alkaline Phosphatase 110 U/L (46-116); Anion Gap 10 (5-15); Aspartate Aminotransferase 31 U/L (13-40); BUN/Creatinine Ratio 50.5 (10.0-20.0); Magnesium 1.9 mg/dL (1.6-2.6)
[2024-09-10 04:07] LABS: Bilirubin, Total 0.3 mg/dL (0.2-1.0)
[2024-09-10 04:34] LABS: Basophils % (manual) 0 (0.0-2.0); Blast Cells 0; Metamyelocytes % 0; Promyelocytes % 0; Reactive Lymphocytes 0
[2024-09-10 04:47] LABS: Alanine Aminotransferase 40 U/L (7-40); Albumin 2.1 g/dL (3.2-4.8); Blood Urea Nitrogen 47 mg/dL (9-23); Calcium 7.8 mg/dL (8.7-10.4); Carbon Dioxide 17 mmol/L (20-31); Chloride 123 mmol/L (98-107); Glucose 257 mg/dL (74-106); Phosphorus 1.3 mg/dL (2.4-5.1); Potassium 3.1 mmol/L (3.5-5.1); Sodium 150 mmol/L (136-145); Total Protein 4.4 g/dL (5.7-8.2)
--- NOTE | 2024-09-10 05:11 | DVH ---
EXAM: XR Chest, 1 View CLINICAL INDICATION: INTUBATED/CHEST TUBE TECHNIQUE: Frontal view of the chest. COMPARISON: XY CHEST PORTABLE on DOS: 09/09/24, XY CHEST PORTABLE on DOS: 09/08/24, XY CHEST PORTABLE on DOS: 09/07/24, XY CHEST PORTABLE on DOS: 09/06/24, XY CHEST PORTABLE on DOS: 09/06/24 FINDINGS: LUNGS AND PLEURAL SPACES: Mild pulmonary congestion. HEART: Unremarkable. No cardiomegaly. MEDIASTINUM: Unremarkable. Normal mediastinal contour. BONES/JOINTS: Unremarkable. No acute fracture. TUBES, LINES AND DEVICES: The endotracheal tube (ETT) is in satisfactory position. Left internal j ugular central venous catheter tip in the superior vena cava. Enteric tube tip in the stomach. Left basilar chest tube. Left pleural effusion. OTHER FINDINGS: . IMPRESSION: 1. Left basilar chest tube. Left pleural effusion. 2. Mild pulmonary congestion.
[2024-09-10 06:09] LABS: Base Excess -7.3 mmol/L (-2.0-3.0)
[2024-09-10 06:38] LABS: Band Neutrophils % (manual) 2; Eosinophils % (manual) 1 (0-7); Lymphocytes % (manual) 3 (10.0-50.0); Monocytes % (manual) 1 (0-12); Myelocytes % 1
[2024-09-10 06:39] LABS: Platelet Estimate Adequate
[2024-09-10 06:56] LABS: Base Excess -8.9 mmol/L (-2.0-3.0)
--- NOTE | 2024-09-10 07:57 | ECG ---
[facility] Test Date: 2024-09-09 Test Time: 20:59:41 Pat Name: NOHELIA PATRICK Department: ICU Room: [address] [place] [address] A Gender: M Ham Clerk: KELLY : 1955 Requested By: BRYSON SMITH Order Number: [id number] Reading MD: Martin Stout Measurements Intervals [place] Rate: 82 P: 0 OK: 0 QRS: 42 QRSD: 99 T: 59 QT: 395 QTc: 462 Interpretive Statements Accelerated junctional rhythm Low voltage, extremity leads Electronically Signed On 09-10-2024 20:36:36 PDT by Martin Stout Please click the below link to view image of tracing.
[2024-09-10] MEDS: POTASSIUM PHOSPHATE 44 MEQ in D5W 5% 250 ML IV ONE (09:36)
--- NOTE | 2024-09-10 09:57 | DVHPN2 ---
Progress Note - Dictate Date Seen: Sep 10, 2024 Medical Necessity Reason Pt with a Central, PICC or Fol: Yes The following are medically ne: Kim Catheter Reason for kim catheter: Strict I&O Subjective Patient is transferred to higher level of care. Patient is on two pressors. EEG completed at bedside. Patient remains critical pulses remain guarded. vital signs Vital Sign Date Time Temp Pulse Resp B/P (MAP) Pulse Ox O2 Delivery O2 Flow Rate FiO2 09/10/24 09:30 108 26 106/64 (78) 100 30 09/10/24 08:24 Mechanical Ventilator+ 09/10/24 06:15 99.3 210.7 Total Intake and Output 09/09/24 09/09/24 09/10/24 15:00 23:00 07:00 Intake Total 1628.0 ml 2028.002 ml 1465.566 ml Output Total 2405 ml 960 ml Balance 1628.0 ml -376.998 ml 505.566 ml medications Current Medications Medications Dose Ordered Sig/Imtiaz Route Start Time Stop Time Status Last Admin Dose Admin Nitroglycerin 0.4 mg Q5MINP PRN SL 09/01/24 14:15 Morphine Sulfate 2 mg Q30M PRN IV 09/01/24 14:15 Atorvastatin Calcium 20 mg HS PO 09/01/24 22:00 09/09/24 21:31 20 MG Metoprolol Tartrate 1.25 mg Q6HPRN PRN IV 09/01/24 14:15 Furosemide 40 mg DAILY IV 09/02/24 10:00 09/09/24 10:13 40 MG Risperidone 0.5 mg HS PO 09/04/24 22:00 09/07/24 22:03 0.5 MG Acetaminophen 1,000 mg Q12H PRN IV 09/05/24 21:45 Midazolam HCl 50 ml @ 1 mls/hr Q24H IV 09/06/24 00:15 09/10/24 05:46 10 MLS/HR Fentanyl Citrate 250 ml @ 2.5 mls/hr Q24H IV 09/06/24 00:15 09/09/24 10:17 15 MLS/HR Vancomycin HCl 0 ml @ 0 mls/hr UD STAT IV 09/06/24 14:38 09/06/24 14:39 UNV Meropenem 50 ml @ 17 mls/hr Q8HR IV 09/06/24 22:00 09/10/24 05:41 17 MLS/HR Vasopressin 20 units/Sodium Chloride 100 ml @ 9 mls/hr Q11H7M IV 09/06/24 15:00 09/09/24 16:01 9 MLS/HR Vancomycin HCl 0 ml @ 0 mls/hr UD IV 09/06/24 16:00 Micafungin Sodium 100 mg/Sodium Chloride 100 ml @ 100 mls/hr DAILY IV 09/07/24 10:00 09/09/24 10:13 100 MLS/HR Norepinephrine Bitartrate 32 mg/ Sodium Chloride 250 ml @ 0.938 mls/ hr Q24H IV 09/07/24 10:15 09/08/24 06:07 10.313 MLS/HR Amino Acids 0 ml @ 0 mls/hr PER PHARMACY IV 09/08/24 15:45 Diagnostic Test (Pha) 1 strip Q6HR 09/08/24 18:00 09/10/24 05:51 1 STRIP Insulin Human Regular FOLLOW SLIDING SCALE Q6HR SC 09/08/24 18:00 09/10/24 05:50 8 UNITS Dextrose 50 ml UD IV 09/08/24 16:15 Fat Emulsion Intravenous 50 ml/ Potassium Acetate 10 meq/Magnesium Sulfate 4 meq/ Multivitamins 10 ml/Chromium/ Copper/Manganese/ Zinc 1 ml/Insulin Human Regular 6 units/Amino Acids/ Dextrose 967.06 ml @ 40 mls/hr [id number] IV 09/09/24 22:00 09/10/24 21:59 09/09/24 22:21 40 MLS/HR Pantoprazole Sodium 40 mg BID IV 09/09/24 22:00 09/09/24 21:31 40 MG Phenylephrine HCl 80 mg/Sodium Chloride 250 ml @ 7.5 mls/hr Q24H IV 09/09/24 15:30 Sodium Chloride 1,000 ml @ 150 mls/hr Q6H40M IV 09/09/24 20:30 09/10/24 08:59 150 MLS/HR objective Gen.: Patient is intubated. Head: Normocephalic, atraumatic. Eyes: EOMI/PERRLA. Ears: Normal hearing. Normal anatomy. Neck/trachea: Trachea midline, supple. Nose: Normal external anatomy. Mouth: Moist mucous membranes. Chest: Decreased air entry bilaterally. No wheezing or rhonchi. Cardiovascular: Positive S1, positive S2. Regular rate and rhythm. Abdomen: Positive bowel sounds in all 4 quadrants. Soft, non-tender, non- distended. Skin: Warm, dry. Intact. Extremities: 2+ radial pulses bilaterally. No lower extremity edema. Neuro: Intubated and Sedated. 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 On review of CT chest today, there is concern of developing organizing empyema on left lung base which is new. Communicated with Dr Brown. Patient is pending emergent transfer to [facility]. will continue broad spectrum abx for now Patient is intubated and on multiple pressors. Reviewed 2 sets of blood culture, showed no growth Gentamicin x1 on 09/06 Continue IV Vancomycin/ Meropenem/ Micafungin for now CT chest/ abdomen/ pelvis is reviewed 09/09, Vancomycin random is 13.5. WBC trending down Blood cultures from 09/06 shows no growth fluid cultures shows no growth Has chest tube he is s/p 1 unit blood transfusion. blood thinner is on hold prognosis is very critical, Critical 35 minutes spent during encounter, coordinated the care, discussed with Dr Brown Thank you for consult Dietary Evaluation Review Comments: 1) TPN to meet at least 75% estimated needs 2) Advance diet as medically feasible 3) Continue current plan of care Expected Outcomes/Goals: To meet >75% estimated needs FU 2-3 days Plan discussed with: JAYASHREE Damon MD Sep 10, 2024 09:57
--- NOTE | 2024-09-10 10:47 | DVH ---
EXAM: CT HEAD WITHOUT CONTRAST INDICATION: Hygroma TECHNIQUE: CT of the head without intravenous contrast. Radiation Dose Information: CT Dose: CTDI volume is 55.46 mGy. Dose-length product is 1093.05 mGy*cm The dose indicators for CT are the volume Computed Tomography (CT) Dose Index (CTDIvol) and the Dose Length Product (DLP), and are measured in units of mGy and mGy-cm, respectively. These indicators are not patient dose, but values generated from the CT scanner acquisition factors. The report includes radiation exposure data for exposures received during this examination. COMPARISON: CT HEAD WITHOUT CONTRAST on DOS: 09/09/24, CT HEAD WITHOUT CONTRAST on DOS: 09/01/24 FINDINGS: Supratentorial Region: No evidence for large acute territorial ischemia. There is asymmetric interval enlargement of the subdural hygroma on the left side now measuring 15 mm in transverse, previously 1 0 mm with approximately 10 mm [id number] midline shift Posterior Fossa: No acute abnormality. Brainstem: Unremarkable. Sellar/Suprasellar Region: Unremarkable. Ventricles, Cisterns, Sulci: Age-appropriate. Orbits: Unremarkable. Paranasal Sinuses: Unremarkable. Mastoid Air Cells: Unremarkable. Vasculature: Unremarkable. Bones/Soft Tissues: No acute abnormality. Other: None. IMPRESSION: 1. Asymmetric interval enlargement of subdural hygroma on the left side now measuring 15 mm in transv erse, previously 10 mm with resultant 10 mm [id number] midline shift and associated subfalcine her niation. No acute intracranial hemorrhage noted.
--- NOTE | 2024-09-10 11:10 | DVHPN2 ---
Progress Note - Dictate Date Seen: Sep 10, 2024 Medical Necessity Reason Pt with a Central, PICC or Fol: Yes The following are medically ne: Kim Catheter Reason for kim catheter: Strict I&O Subjective Mr. 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 I have seen and examined the patient, I have talked to his nurse, he is questionably responsive to stronger painful stimuli, he may have gag reflexes Pupils are symmetric and reactive to lights Fentanyl 100 mcg/hour, Versed 7 mg/hour, levo 4 mcg/minute Lenium, 09/07/2024: ABG, 09/05/24: Respiratory alkalosis. 09/06/2024: Metabolic acidosis, 09/07/2024, metabolic acidosis, hypoxia, 09/08/24: Metabolic acidosis, hypoxia WBC/HB/PLT/MCV, 09/08/2024: 34.8/9/398/9, 09/09/2024: 22.9/7.5/378/8.4 BUN/CR, 09/08/2024: 65/1.55 TBI/AST/ALT/AP, 09/08/2024: 0.3/39/66/99 TSH, 09/01/2024, 0.44 CXR, 09/08/2024: 1. Pulmonary congestion and edema. Pneumonia cannot be excluded. 2. Left basilar atelectasis or pneumonia. 3. Left pleural effusion. CT head, 09/01/2024: 1. No evidence of acute intracranial hemorrhage, mass effect or hydrocephalus. 2. Diffuse atrophy and chronic microvascular ischemic changes CT head, 09/09/2024: Asymmetric interval enlargement of subdural hygroma on the left side now measuring 15 mm in transverse, previously 10 mm with resultant 10 mm [id number] midline shift and associated subfalcine herniation. No acute intracranial hemorrhage noted. CT head, 09/10/2024: symmetric interval enlargement of subdural hygroma on the left side now measuring 15 mm in transverse, previously 10 mm with resultant 10 mm [id number] midline shift and associated subfalcine herniation. No acute intracranial hemorrhage noted CT chest, 09/04/2024: 1. Limited evaluation given noncontrast technique. 2. Moderate left pleural effusion with scattered locules of air, slightly decreased in size compared to prior. 3. Pigtail drainage catheter terminates in the left lung base. 4. Multiple prominent mediastinal and pericardial nodes, nonspecific. 5. 0.5 cm left upper lobe pulmonary nodule. 6. Fluid-filled esophagus places the patient at risk for aspiration CTA chest, 09/02/2024: 1. No evidence of pulmonary embolism. 2. Moderate left hydropneumothorax. 3. Pulmonary edema and right pleural effusion. Correlation for congestive heart failure recommended. 4. 3.0 cm right thyroid nodule. Correlation with thyroid ultrasound is strongly recommended. 5. Mediastinal lymphadenopathy which may be metastatic. 6. Cardiomegaly.7. Lytic lesion in the distal right clavicle with pathologic fracture. This is concerning for a metastatic lesion. PET-CT recommended. 8. Acute appearing fracture through the sternum. vital signs Vital Sign Date Time Temp Pulse Resp B/P (MAP) Pulse Ox O2 Delivery O2 Flow Rate FiO2 09/10/24 11:00 113 26 126/81 (96) 95 132/76 (94) 09/10/24 10:00 98.6 98.6 09/10/24 09:30 30 09/10/24 08:24 Mechanical Ventilator+ Total Intake and Output 09/09/24 09/09/24 09/10/24 15:00 23:00 07:00 Intake Total 1628.0 ml 2028.002 ml 1465.566 ml Output Total 2405 ml 960 ml Balance 1628.0 ml -376.998 ml 505.566 ml medications Current Medications Medications Dose Ordered Sig/Imtiaz Route Start Time Stop Time Status Last Admin Dose Admin Nitroglycerin 0.4 mg Q5MINP PRN SL 09/01/24 14:15 Morphine Sulfate 2 mg Q30M PRN IV 09/01/24 14:15 Atorvastatin Calcium 20 mg HS PO 09/01/24 22:00 09/09/24 21:31 20 MG Metoprolol Tartrate 1.25 mg Q6HPRN PRN IV 09/01/24 14:15 Furosemide 40 mg DAILY IV 09/02/24 10:00 09/10/24 10:11 40 MG Risperidone 0.5 mg HS PO 09/04/24 22:00 09/07/24 22:03 0.5 MG Acetaminophen 1,000 mg Q12H PRN IV 09/05/24 21:45 Midazolam HCl 50 ml @ 1 mls/hr Q24H IV 09/06/24 00:15 09/10/24 10:10 10 MLS/HR Fentanyl Citrate 250 ml @ 2.5 mls/hr Q24H IV 09/06/24 00:15 09/10/24 10:17 12.5 MLS/HR Vancomycin HCl 0 ml @ 0 mls/hr UD STAT IV 09/06/24 14:38 09/06/24 14:39 UNV Meropenem 50 ml @ 17 mls/hr Q8HR IV 09/06/24 22:00 09/10/24 05:41 17 MLS/HR Vasopressin 20 units/Sodium Chloride 100 ml @ 9 mls/hr Q11H7M IV 09/06/24 15:00 09/09/24 16:01 9 MLS/HR Vancomycin HCl 0 ml @ 0 mls/hr UD IV 09/06/24 16:00 Micafungin Sodium 100 mg/Sodium Chloride 100 ml @ 100 mls/hr DAILY IV 09/07/24 10:00 09/10/24 10:11 100 MLS/HR Norepinephrine Bitartrate 32 mg/ Sodium Chloride 250 ml @ 0.938 mls/ hr Q24H IV 09/07/24 10:15 09/08/24 06:07 10.313 MLS/HR Amino Acids 0 ml @ 0 mls/hr PER PHARMACY IV 09/08/24 15:45 Diagnostic Test (Pha) 1 strip Q6HR 09/08/24 18:00 09/10/24 05:51 1 STRIP Insulin Human Regular FOLLOW SLIDING SCALE Q6HR SC 09/08/24 18:00 09/10/24 05:50 8 UNITS Dextrose 50 ml UD IV 09/08/24 16:15 Fat Emulsion Intravenous 50 ml/ Potassium Acetate 10 meq/Magnesium Sulfate 4 meq/ Multivitamins 10 ml/Chromium/ Copper/Manganese/ Zinc 1 ml/Insulin Human Regular 6 units/Amino Acids/ Dextrose 967.06 ml @ 40 mls/hr [id number] IV 09/09/24 22:00 09/10/24 21:59 09/09/24 22:21 40 MLS/HR Pantoprazole Sodium 40 mg BID IV 09/09/24 22:00 09/10/24 10:10 40 MG Phenylephrine HCl 80 mg/Sodium Chloride 250 ml @ 7.5 mls/hr Q24H IV 09/09/24 15:30 Sodium Chloride 1,000 ml @ 150 mls/hr Q6H40M IV 09/09/24 20:30 09/10/24 08:59 150 MLS/HR objective The patient is well-nourished and well-developed with no distress. The patient is intubated MENTAL STATUS: Subjective CRANIAL NERVES: Pupils are round and slightly reactive reactive, left-sided slightly bigger.There are corneal reflexes and doll's eyes phenomenon. No signs of facial weakness. There are questionable gagging or coughing reflexes SENSATION: No responses to pain stimuli. MOTOR: Normal tone in the upper and lower extremity. Normal muscle bulk. No fasciculations. No spontaneous movement. REFLEXES: Deep tendon reflexes are symmetrical. No pathological reflexes. CEREBELLAR/COORDINATION: Deferred GAIT/STATION: deferred laboratory and microbiology Laboratory Tests 09/10/24 03:30 Test 09/10/24 03:30 Range/Units Serum Glucose 257 H 74-106 mg/dL Problem List Anisocoria, uncertain clinical significance Coma Metabolic acidosis Hypoxic acidosis Toxic acidosis Sepsis, septic shock Pleural effusion status post thoracentesis GI bleeding Multiple falls Psychosis Hygroma with mass effects Assessment/Plan Monitoring Supportive treatment ICU care MRA neck Follow-up lab Stabilize vitals Respiratory support/vent management Oxygen IV antibiotics Pantoprazole Transfer to higher level care This medical document was created using an electronic medical record system with [employer] computerized dictation system. Although this document has been carefully reviewed, there may still be some phonetic and typographical errors. These areas are purely typographical due to imperfections of the software programs, and do not reflect any compromise in the patient's medical care. Prognosis guarded Dietary Evaluation Review Comments: 1) TPN to meet at least 75% estimated needs 2) Advance diet as medically feasible 3) Continue current plan of care Expected Outcomes/Goals: To meet >75% estimated needs FU 2-3 days Plan discussed with: Other Critical Care Time(min): 35 RESHMA BOWIE MD Sep 10, 2024 11:10
--- NOTE | 2024-09-10 12:34 | DVH ---
Bilateral lower extremity venous duplex Clinical History: edema Comparison: US BILAT LOWER DVT on DOS: 09/01/24 Findings: Duplex Doppler evaluation of the deep venous systems of both lower extremities from the common femora l veins to the popliteal veins including color Doppler and spectral/pulsed waveform analysis was perf ormed. RIGHT SIDE: The common femoral vein demonstrates appropriate compressibility and waveform variability. There is compressibility/patency of the great saphenous vein at the proximal thigh. The femoral vein demonstrates appropriate compressibility and waveform variability. The deep femoral vein demonstrates appropriate compressibility and waveform variability. The popliteal vein demonstrates appropriate compressibility and waveform variability. There is normal compressibility at the tibioperoneal trunk. LEFT SIDE: The common femoral vein demonstrates appropriate compressibility and waveform variability. There is compressibility/patency of the great saphenous vein at the proximal thigh. The femoral vein demonstrates appropriate compressibility and waveform variability. The deep femoral vein demonstrates appropriate compressibility and waveform variability. The popliteal vein demonstrates appropriate compressibility and waveform variability. There is normal compressibility at the tibioperoneal trunk. IMPRESSION: No right or left femoropopliteal venous thrombosis. If clinical concern/symptoms persist or worsen, short-interval follow-up study is suggested. END IMPRESSION:
[2024-09-10 13:23] LABS: Base Excess -7.9 mmol/L (-2.0-3.0)
--- NOTE | 2024-09-10 14:45 | DVHPN2 ---
Progress Note - Dictate Date Seen: Sep 10, 2024 Medical Necessity Reason Pt with a Central, PICC or Fol: Yes The following are medically ne: Kim Catheter Reason for kim catheter: Strict I&O Subjective No further GI bleeding reported Hemoglobin is stable at 10 Patient is currently on IV Protonix IV pressors are being tapered Patient is currently on FiO2 30% with a PEEP of eight Patient has bilateral lung opacities suspected bilateral pneumonia and sepsis leukocytosis is slowly trending downwards He has been running hypotensive and low blood pressures requiring IV Levophed EGD showed a proximal esophageal stricture with ulceration hiatal hernia with a esophagitis Initial CT chest had shown some dilated esophagus, pulmonary nodule and multiple mediastinal lymph nodes Patient has a left-sided chest tube that initially drained a lot however now the last drainage is only about 20 mL recorded vital signs Vital Sign Date Time Temp Pulse Resp B/P (MAP) Pulse Ox O2 Delivery O2 Flow Rate FiO2 09/10/24 14:27 99/60 09/10/24 14:05 30 09/10/24 14:05 97 09/10/24 14:05 24 95 Mechanical Ventilator+ 09/10/24 12:00 97.5 97.5 Total Intake and Output 09/09/24 09/09/24 09/10/24 14:59 22:59 06:59 Intake Total 1595.5 ml 2031.564 ml 1679.504 ml Output Total 2405 ml 960 ml Balance 1595.5 ml -373.436 ml 719.504 ml medications Current Medications Medications Dose Ordered Sig/Imtiaz Route Start Time Stop Time Status Last Admin Dose Admin Nitroglycerin 0.4 mg Q5MINP PRN SL 09/01/24 14:15 Morphine Sulfate 2 mg Q30M PRN IV 09/01/24 14:15 Atorvastatin Calcium 20 mg HS PO 09/01/24 22:00 09/09/24 21:31 20 MG Metoprolol Tartrate 1.25 mg Q6HPRN PRN IV 09/01/24 14:15 Furosemide 40 mg DAILY IV 09/02/24 10:00 09/10/24 10:11 40 MG Risperidone 0.5 mg HS PO 09/04/24 22:00 09/07/24 22:03 0.5 MG Acetaminophen 1,000 mg Q12H PRN IV 09/05/24 21:45 Midazolam HCl 50 ml @ 1 mls/hr Q24H IV 09/06/24 00:15 09/10/24 14:27 12 MLS/HR Fentanyl Citrate 250 ml @ 2.5 mls/hr Q24H IV 09/06/24 00:15 09/10/24 10:17 12.5 MLS/HR Vancomycin HCl 0 ml @ 0 mls/hr UD STAT IV 09/06/24 14:38 09/06/24 14:39 UNV Meropenem 50 ml @ 17 mls/hr Q8HR IV 09/06/24 22:00 09/10/24 14:26 17 MLS/HR Vasopressin 20 units/Sodium Chloride 100 ml @ 9 mls/hr Q11H7M IV 09/06/24 15:00 09/09/24 16:01 9 MLS/HR Vancomycin HCl 0 ml @ 0 mls/hr UD IV 09/06/24 16:00 Micafungin Sodium 100 mg/Sodium Chloride 100 ml @ 100 mls/hr DAILY IV 09/07/24 10:00 09/10/24 10:11 100 MLS/HR Norepinephrine Bitartrate 32 mg/ Sodium Chloride 250 ml @ 0.938 mls/ hr Q24H IV 09/07/24 10:15 09/10/24 11:43 0.938 MLS/HR Amino Acids 0 ml @ 0 mls/hr PER PHARMACY IV 09/08/24 15:45 Diagnostic Test (Pha) 1 strip Q6HR 09/08/24 18:00 09/10/24 12:45 1 STRIP Insulin Human Regular FOLLOW SLIDING SCALE Q6HR SC 09/08/24 18:00 09/10/24 12:50 16 UNITS Dextrose 50 ml UD IV 09/08/24 16:15 Fat Emulsion Intravenous 50 ml/ Potassium Acetate 10 meq/Magnesium Sulfate 4 meq/ Multivitamins 10 ml/Chromium/ Copper/Manganese/ Zinc 1 ml/Insulin Human Regular 6 units/Amino Acids/ Dextrose 967.06 ml @ 40 mls/hr [id number] IV 09/09/24 22:00 09/10/24 21:59 09/09/24 22:21 40 MLS/HR Pantoprazole Sodium 40 mg BID IV 09/09/24 22:00 09/10/24 10:10 40 MG Phenylephrine HCl 80 mg/Sodium Chloride 250 ml @ 7.5 mls/hr Q24H IV 09/09/24 15:30 Sodium Chloride 1,000 ml @ 150 mls/hr Q6H40M IV 09/09/24 20:30 09/10/24 08:59 150 MLS/HR Fat Emulsion Intravenous 100 ml/Potassium Acetate 40 meq/ Potassium Phosphate 40 meq/ Magnesium Sulfate 8 meq/ Multivitamins 10 ml/Chromium/ Copper/Manganese/ Zinc 1 ml/Insulin Human Regular 12 units/Amino Acids/ Dextrose 1,242.2109 ml @ 52 mls/hr [id number] IV 09/10/24 22:00 09/11/24 21:59 objective HEENT pupils are reactive Neck is supple CV is S1-S2 regular rate and rhythm Respiratory diminished breath sounds bases GI positive bowel sound Extremity no edema 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 twice a day Via NG tube Patient has been accepted at [facility] [place] awaiting a bed If any further GI intervention is required please consult [facility] GI on-call Dietary Evaluation Review Comments: 1) TPN to meet at least 75% estimated needs 2) Advance diet as medically feasible 3) Continue current plan of care Expected Outcomes/Goals: To meet >75% estimated needs FU 2-3 days Plan discussed with: Other (None) HEAVEN GLASGOW MD Sep 10, 2024 14:45
[2024-09-10] MEDS: VANCOMYCIN 750MG KIT 100 ML IV ONE (18:03)
--- NOTE | 2024-09-10 21:29 | DVHPN2 ---
Progress Note - Dictate Date Seen: Sep 10, 2024 Medical Necessity Reason Pt with a Central, PICC or Fol: Yes The following are medically ne: Kim Catheter Reason for kim catheter: Strict I&O Subjective Patient seen and examined at bedside. Sedated, intubated on mechanical ventilator. Overnight events reviewed. vital signs Vital Sign Date Time Temp Pulse Resp B/P (MAP) Pulse Ox O2 Delivery O2 Flow Rate FiO2 09/10/24 20:15 91 84/51 (62) 98 09/10/24 20:00 19 09/10/24 19:02 30 09/10/24 18:22 Mechanical Ventilator+ 09/10/24 16:00 98.5 98.5 Total Intake and Output 09/09/24 09/09/24 09/10/24 15:00 23:00 07:00 Intake Total 1628.0 ml 2028.002 ml 1683.504 ml Output Total 2405 ml 960 ml Balance 1628.0 ml -376.998 ml 723.504 ml medications Current Medications Medications Dose Ordered Sig/Imtiaz Route Start Time Stop Time Status Last Admin Dose Admin Vancomycin HCl 0 ml @ 0 mls/hr UD STAT IV 09/06/24 14:38 09/06/24 14:39 UNV objective Gen.: Patient lying in bed in medical ICU. Sedated, intubated on mechanical ventilator. Head: Normocephalic, atraumatic. Eyes: PERRLA. Ears: Normal external anatomy. Throat: Endotracheal tube and orogastric tube in place. Neck: Supple, trachea midline. Chest: Transmitted breath sounds bilaterally. Decreased air entry bilaterally. No wheezing. Bibasilar crackles. Cardiovascular: Positive S1, positive S2. Regular rate and rhythm. Abdomen: Positive bowel sounds in all 4 quadrants. Soft, nontender, nondistended. : Kim in place. Normal external genitalia. Rectal: Deferred. Skin: Warm, dry. Intact. Extremities: 2+ radial pulses bilaterally. No lower extremity edema. Neuro: Sedated. laboratory and microbiology Laboratory Tests 09/10/24 03:30 Test 09/10/24 03:30 Range/Units Serum Glucose 257 H 74-106 mg/dL Assessment/Plan Impression: Acute hypoxic respiratory failure On mechanical ventilator Massive left pleural effusion Atelectasis Coronary artery disease s/p PTCA Acute metabolic encephalopathy Right clavicle fracture Nicotine dependence Hemorrhagic shock Pneumonia GI hemorrhage Events: Remains on vent support Vent settings changed from PCV mode; RR 24; I-Pressure 15; I-time 0.72, PEEP 8, FiO2 30% --> AC mode with RR 20, VT 500, PEEP 5, FIO2 30% Sedated on Versed/Fentanyl ABG reviewed. Head of bed elevation Aspiration precautions On pressors for hemodynamic support Levophed 4 mcg/min Titrate to keep mean arterial pressure greater than 65 mmHg. Off Rey-Synephrine and vasopressin Neurology recs appreciated CT head shows subdural hygroma, increasing in size (10 --> 15 mm). Monitor hemoglobin Transfuse if less than 7.0 g/dL. Protonix drip Continue antibiotics Blood cultures show no growth after 72 hours Continue antifungal TPN for nutritional support CXR demonstrates left basilar chest tube. Left pleural effusion. Mild pulmonary congestion. Continue to monitor chest tube output No air leak Ultrasound venous Doppler of BLE shows no e/o deep venous thrombosis. Diurese as tolerated w/ Lasix Monitor renal function. Monitor electrolytes. Supplement as necessary. K phos supplementation Accu-Cheks, ISS. Monitor hemodynamics closely. Labs and imaging reviewed. Rest of plan as noted below. Plan: s/p intubation on mechanical ventilator. Vent settings: AC mode; RR 20; VT 500, PEEP 5, FiO2 30% Titrate FIO2 to keep O2 saturation above 90%. VAP bundle. Daily ABG and CXR while intubated Sedated on Versed/Fentanyl Pressors as necessary for hemodynamic support Titrate to keep mean arterial pressure greater than 65 mmHg S/p placement of left Mark chest tube on 09/02/24 - chest x-rays confirmed placement. See separate procedure note for details of procedure. Continue antibiotics Monitor hemoglobin Smoking cessation discussed for greater than 10 minutes Monitor renal function. Monitor electrolytes. Supplement as necessary. Monitor ins and outs. DVT prophylaxis. Prognosis: Poor given patient's multiple co-morbidities. Condition: Critical Rest of plan per hospitalist and other consultants. A total of 35 minutes of critical care time was spent reviewing the patient record, examining the patient, making a diagnostic and therapeutic plan, discussing this plan with the medical personnel, following up on diagnostic studies and following the patient for clinical stability excluding any and all procedures. At least 50% of this time was spent in direct, [id number] contact. Thank you Dr. Wells for allowing me to participate in this patient's care. Further recommendations will depend on the patient's clinical course. Please do not hesitate to contact me if you have any questions or concerns. This medical document was created using an electronic medical record system with [employer] dictation system. Although these documentations are being carefully reviewed, there may still be some phonetic and typographical changes. The errors are purely typographical, due to imperfection on the software program, and do not reflect any compromise in the patient's medical care. Dietary Evaluation Review Comments: 1) TPN to meet at least 75% estimated needs 2) Advance diet as medically feasible 3) Continue current plan of care Expected Outcomes/Goals: To meet >75% estimated needs FU 2-3 days Plan discussed with: Other (EDMUND Chisholm) Critical Care Time(min): 35 HAYLEE BULLOCK MD Sep 10, 2024 21:29
[2024-09-10] MEDS ORDERED: TPN PER PHARMACY IV NR (22:00)
== END 2024-09-10 20:37 | disposition short-term general hospital (02) | DRG 870 ==
LOC: ER 07:46 → EDBD 07:46 → OVERFLOW 14:06 → TELE-WESTW 09-04 18:08 → ICU WEST 09-05 20:10
PROVIDERS: ADMIT Internal Medicine; ATTEND Internal Medicine
PROC: 0W9B30Z Drainage of Left Pleural Cavity with Drainage Device, Percutaneous Approach (ICD-10-PCS; 2024-09-01)
PROC: 0W9B30Z Drainage of Left Pleural Cavity with Drainage Device, Percutaneous Approach (ICD-10-PCS; 2024-09-02)
PROC: 30233N1 Transfusion of Nonautologous Red Blood Cells into Peripheral Vein, Percutaneous Approach (ICD-10-PCS; 2024-09-05)
PROC: 5A1955Z Respiratory Ventilation, Greater than 96 Consecutive Hours (ICD-10-PCS; principal; 2024-09-06)
PROC: 02HV33Z Insertion of Infusion Device into Superior Vena Cava, Percutaneous Approach (ICD-10-PCS; 2024-09-06)
PROC: B548ZZA Ultrasonography of Superior Vena Cava, Guidance (ICD-10-PCS; 2024-09-06)
PROC: 03HY32Z Insertion of Monitoring Device into Upper Artery, Percutaneous Approach (ICD-10-PCS; 2024-09-06)
PROC: 0BH17EZ Insertion of Endotracheal Airway into Trachea, Via Natural or Artificial Opening (ICD-10-PCS; 2024-09-06)
PROC: 05HB33Z Insertion of Infusion Device into Right Basilic Vein, Percutaneous Approach (ICD-10-PCS; 2024-09-06)
PROC: B54MZZA Ultrasonography of Right Upper Extremity Veins, Guidance (ICD-10-PCS; 2024-09-06)
PROC: 0DB98ZX Excision of Duodenum, Via Natural or Artificial Opening Endoscopic, Diagnostic (ICD-10-PCS; 2024-09-09)
PROC: 0DB68ZX Excision of Stomach, Via Natural or Artificial Opening Endoscopic, Diagnostic (ICD-10-PCS; 2024-09-09)
PROC: 0DB18ZX Excision of Upper Esophagus, Via Natural or Artificial Opening Endoscopic, Diagnostic (ICD-10-PCS; 2024-09-09)
PROC: 0DB48ZX Excision of Esophagogastric Junction, Via Natural or Artificial Opening Endoscopic, Diagnostic (ICD-10-PCS; 2024-09-09)
DX: A41.9 Sepsis, unspecified organism (principal); G93.41 Metabolic encephalopathy; J96.01 Acute respiratory failure with hypoxia; R57.8 Other shock; R65.21 Severe sepsis with septic shock; J86.9 Pyothorax without fistula; K22.11 Ulcer of esophagus with bleeding; K29.71 Gastritis, unspecified, with bleeding; G93.5 Compression of brain; J15.69 Pneumonia due to other Gram-negative bacteria; J15.9 Unspecified bacterial pneumonia; N17.9 Acute kidney failure, unspecified; J94.8 Other specified pleural conditions; E87.4 Mixed disorder of acid-base balance; G96.08 Other cranial cerebrospinal fluid leak; I31.39 Other pericardial effusion (noninflammatory); E78.5 Hyperlipidemia, unspecified; I25.10 Atherosclerotic heart disease of native coronary artery without angina pectoris; F20.9 Schizophrenia, unspecified; F17.210 Nicotine dependence, cigarettes, uncomplicated; E11.9 Type 2 diabetes mellitus without complications; S42.031A Displaced fracture of lateral end of right clavicle, initial encounter for closed fracture; F31.9 Bipolar disorder, unspecified; R59.0 Localized enlarged lymph nodes; K22.2 Esophageal obstruction; K44.9 Diaphragmatic hernia without obstruction or gangrene; K22.89 Other specified disease of esophagus; H57.02 Anisocoria; E27.9 Disorder of adrenal gland, unspecified; Z99.81 Dependence on supplemental oxygen; Z95.5 Presence of coronary angioplasty implant and graft; Z79.82 Long term (current) use of aspirin; W11.XXXA Fall on and from ladder, initial encounter; Y93.89 Activity, other specified; Y92.89 Other specified places as the place of occurrence of the external cause; Y99.8 Other external cause status
CPT/HCPCS: 32551; 32555; 36415; 36556; 36600; 36620; 43239; 70450; 71045; 71250; 71275; 73030; 74176; 80048; 80053; 80170; 80178; 80202; 82565; 82805; 82962; 83605; 83735; 83880; 83986; 84100; 84439; 84443; 84478; 84484; 85007; 85025; 85027; 85610; 85730; 86850; 86900; 86901; 86920; 87040; 87070; 87077; 87081; 87086; 87205; 89051; 93005; 93306; 93970; 94002; 94003; 95819; 96361; 96365; 96375; 99291; G0378; J0330; J0692; J1815; J2185; J2248; J2405; J2470; J7060